=== PATIENT | male | born 1950 | race Caucasian/White ===

== ENCOUNTER 2019-04-09 23:19 | Inpatient (IN) | payer OTHER ==
[~2019-04-09] VITALS: Ht 182.9 cm; Wt 53.5 kg
[2019-04-10] MEDS ORDERED: ACETAMINOPHEN 325 MG TABLET. PO PRN (02:30)
[2019-04-10] MEDS ORDERED: TEMAZEPAM 7.5 MG CAPSULE PO PRN (02:30)
[2019-04-10] MEDS ORDERED: ONDANSETRON PF 4 MG/2 ML VIAL. IV PRN (02:30)
[2019-04-10 03:16] VITALS: BP 129/75
[2019-04-10 07:15] VITALS: BP 130/78
[2019-04-10] MEDS: ASPIRIN 325 MG TABLET PO SCH ×2 (08:00→10:35)
[2019-04-10 08:36] LABS: BASO % 1 % (0-3); EOS # 0.1 x10^3/uL (0.0-0.7); EOS % 2 % (0-3); HEMATOCRIT 45.4 % (39.0-53.0); HEMOGLOBIN 15.7 g/dL (13.0-17.5); LYMPH # 1.1 x10^3/uL (1.0-4.8); LYMPH % 21 % (24-48); MEAN CORPUSCULAR HEMOGLOBIN 34 pg (25-35); MEAN CORPUSCULAR HGB CONC 35 g/dL (31-37); MEAN CORPUSCULAR VOLUME 100 fL (79-100); MONO # 0.6 x10^3/uL (0.0-1.1); MONO % 11 % (0-9); NEUT # 3.5 x10^3/uL (1.8-7.7); NEUT % 66 % (31-73); PLATELET COUNT 147 x10^3/uL (140-400); RED BLOOD COUNT 4.56 x10^6/uL (4.30-5.70); RED CELL DISTRIBUTION WIDTH 14.1 % (11.5-14.5); WHITE BLOOD COUNT 5.3 x10^3/uL (4.0-11.0)
[2019-04-10 08:40] LABS: ALBUMIN 3.1 g/dL (3.4-5.0); ALBUMIN/GLOBULIN RATIO 0.9 (1.0-1.7); CALCIUM 8.7 mg/dL (8.5-10.1); CREATININE 0.9 mg/dL (0.7-1.3); GFR 83.4; POTASSIUM 3.6 mmol/L (3.5-5.1); TOTAL BILIRUBIN 0.9 mg/dL (0.2-1.0); TOTAL PROTEIN 6.5 g/dL (6.4-8.2)
--- NOTE | 2019-04-10 10:00 | NUR ---
SW consulted for ETOH abuse and SNU eval. Chart reviewed and pt lives at home with family. PT/OT pending. SW will await for PT/OT eval to assess skilled needs.
[2019-04-10 11:17] VITALS: BP 126/71
--- NOTE | 2019-04-10 13:35 | HP ---
ADMIT DATE: 04/10/2019 CHIEF COMPLAINT: Left-sided weakness. HISTORY OF PRESENT ILLNESS: The patient is a pleasant elderly male who lives with his sister or [id number]. Basically, he had left-sided weakness. I think he went to [facility] first. He has now been transferred here. He clears to have left-sided weakness especially on the leg. He clinically seems to have a stroke. I discussed the case with the nurse here at the floor. We are going to admit the patient and consult Neurology. PAST MEDICAL HISTORY: None. ALLERGIES: None. FAMILY HISTORY: Hypertension. SOCIAL HISTORY: Does not drink, smoke or take drugs. MEDICATIONS: Reviewed, please refer to the MRAD. REVIEW OF SYSTEMS: Unobtainable, the patient is too weak. PHYSICAL EXAMINATION: VITALS: Within normal limits and are stable. GENERAL: No apparent distress. Alert and oriented. HEENT: Head is normocephalic, atraumatic, pupils were equally round and reactive to light and accommodation. NECK: Supple, no JVD, no thyromegaly was noted. LUNGS: Clear to auscultation in all lung humphrey without rhonchi or wheezing. HEART: RRR, S1, S2 present. Peripheral pulses intact, no obvious murmurs were noted. ABDOMEN: Soft, nontender. Positive bowel sounds no organomegaly, normal bowel sounds. EXTREMITIES: He has extremely keratotic and infected toenails and hand nails. 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 PSYCHIATRIC: Normal affect, normal mood. Stable. SKIN: No ulcerations or rashes, good skin turgor, no jaundice. VASCULAR: Good capillary refill, neurovascular bundle appears to be intact. LABORATORY DATA: White count 5, hemoglobin 15, platelets 147. Electrolytes are normal. ASSESSMENT AND PLAN: Stroke symptoms. The patient has been admitted. We will consult Neurology, PT, OT and Speech Therapy, Wound Care, consult Podiatry for his toenails. DVT prophylaxis. Home meds, daily aspirin. Suspect he may need long-term care placement. FEDERICO SOLO DO DR: GEOVANNA/bimal JOB#: [id number] / [id number]
[2019-04-10 15:00] VITALS: BP 131/64
--- NOTE | 2019-04-10 15:14 | PDOC2 ---
NEUROLOGY CONSULT Date of Admission Date of Admission DATE: 04/10/19 TIME: 14:37 Reason for Consult Reason for Consult: IMPRESSION: Left side weakness. Metabolic encephalopathy. Smoking. Drinking. RECOMMENDATIONS/PLAN: Continue ASA 325 mg daily. Brain MRI w/o contrast. Further evaluation pending MRI findings. OT/PT. Patient education for substances abstinence. HISTORY OF THE PRESENT ILLNESS: This is a 68-year-old male patient who was initially seen in [facility] with complaints of left side UE and LE weakness and was then transferred here in [facility] for further evaluation and treatment. He stated he had left-sided weakness especially on the leg. PAST MEDICAL HISTORY: Patient was unable to provide information. FAMILY HISTORY: Hypertension. PAST SURGERY HISTORY: No major surgery recently. ALLERGY: Unknown MEDICATIONS: Refer to MAR SOCIAL HISTORY: Lives with his sister. He smokes 1 pack of cigarettes a day for 30 years. He drinks 3-4 beers a day for more than 10 years. REVIEW OF SYSTEMS: Constitutional: Weight loss. Head: No traumatic brain or head injury. Skin: No edema, or rash. Ear: No infection. Eyes: No vision loss or color blindness. Nose: No bleeding or purulent discharges. Hearing: No hearing decrease. Neck: No injury. Cardiac: No UT, arrhythmia,claudication. Pulmonary: No COPD. GI: No GI ulcer, GI bleeding. Urinary/genital: No dysuria, incontinence, urinary retention. Endocrinologic: No cousin face, craniofacial dysmorphism. Skeletomuscular: No muscular atrophy, deformity. Neurological: see HP. Psychiatric: Denies drug use/abuse. Otherwise, not [id number] review of systems. PHYSICAL EXAMINATION: General appearance is in subacute distress. HEENT: Normocephalic and nontraumatic. Eyes, nose, ears, and throat are unremarkable. Neck is supple. No lymphadenopathy. No crepitus. Cardiovascular: S1, S2. Pulmonary: Clear to auscultation bilaterally. Abdomen: Bowel sounds are positive. Extremities: No rash, lesions, or edema. No restriction of range of motion NEUROLOGICAL EXAMINATION: Awake. Not oriented to time, place and person. PERRL. EOMI. CN: no focal findings. Muscle tone: within normal. Muscle strength: 5 DTR: 2 Plantar reflex: Flexor response bilaterally Gait: not examined in bed. Sensory exam: no abnormal findings. No cerebellar signs elicited. F-T-N test fine. Current Medications Current Medications Current Medications Aspirin (Javid Aspirin) 325 mg DAILYWBKFT PO Last administered on 04/10/19at 10:38; Start 04/10/19 at 08:00 Acetaminophen (Tylenol) 650 mg PRN Q6HRS PRN PO MILD PAIN / TEMP; Start 04/10/19 at 02:30 Ondansetron HCl (Zofran) 4 mg PRN Q6HRS PRN IV NAUSEA/VOMITING; Start 04/10/19 at 02:30 Temazepam (Restoril) 7.5 mg PRN QHS PRN PO INSOMNIA; Start 04/10/19 at 02:30 Allergies Allergies: Allergies Coded Allergies Type Severity Reaction Last Updated Verified No Known Drug Allergies 04/10/19 No ROS Review of System The patient denies any associated fevers, chills, headache, ear pain, rhinorrhea, sore throat, stiff neck, productive cough, chest pain, shortness of breath, back or flank pain, abdominal pain, nausea, vomiting, diarrhea, constipation, dysuria, rash, numbness, weakness, tingling, incontinence, difficu lty ambulating, or diaphoresis. Physical Exam Physical Exam General: Well developed, well nourished, no acute distress, well appearing HEENT: Pupils equally round and reactive to light, EOMI, no discharge, normal conjunctiva Neck: Supple, no nuchal rigidity, no JVD, trachea midline, no tenderness Cardiac: RRR, no murmurs, no gallops, no rubs Chest/Lungs: CTAB, no wheeze, no rhonchi, no crackles Abdomen: soft, non-distended, no guarding, no peritoneal signs, non-tender Back: No tenderness Extremities: no edema, pulses intact, non-tender,capillary refill <3 sec bilateral upper and lower extremities, Neuro: Alert and oriented x 4, no focal deficits, normal speech Vitals Vitals: Vital Signs Date Time Temp Pulse Resp B/P (MAP) Pulse Ox O2 Delivery O2 Flow Rate FiO2 04/10/19 11:17 97.9 58 20 126/71 (89) 95 Room Air 97.9 Labs Labs Laboratory Tests Test 04/10/19 08:00 White Blood Count 5.3 x10^3/uL (4.0-11.0) Red Blood Count 4.56 x10^6/uL (4.30-5.70) Hemoglobin 15.7 g/dL (13.0-17.5) Hematocrit 45.4 % (39.0-53.0) Mean Corpuscular Volume 100 fL (79-100) Mean Corpuscular Hemoglobin 34 pg (25-35) Mean Corpuscular Hemoglobin Concent 35 g/dL (31-37) Red Cell Distribution Width 14.1 % (11.5-14.5) Platelet Count 147 x10^3/uL (140-400) Neutrophils (%) (Auto) 66 % (31-73) Lymphocytes (%) (Auto) 21 % (24-48) Monocytes (%) (Auto) 11 % (0-9) Eosinophils (%) (Auto) 2 % (0-3) Basophils (%) (Auto) 1 % (0-3) Neutrophils # (Auto) 3.5 x10^3/uL (1.8-7.7) Lymphocytes # (Auto) 1.1 x10^3/uL (1.0-4.8) Monocytes # (Auto) 0.6 x10^3/uL (0.0-1.1) Eosinophils # (Auto) 0.1 x10^3/uL (0.0-0.7) Basophils # (Auto) 0.0 x10^3/uL (0.0-0.2) Prothrombin Time 13.0 SEC (11.7-14.0) Prothromb Time International Ratio 1.0 (0.8-1.1) Sodium Level 136 mmol/L (136-145) Potassium Level 3.6 mmol/L (3.5-5.1) Chloride Level 99 mmol/L (98-107) Carbon Dioxide Level 29 mmol/L (21-32) Anion Gap 8 (6-14) Blood Urea Nitrogen 18 mg/dL (8-26) Creatinine 0.9 mg/dL (0.7-1.3) Estimated GFR (Cockcroft-Gault) 83.4 BUN/Creatinine Ratio 20 (6-20) Glucose Level 74 mg/dL (70-99) Calcium Level 8.7 mg/dL (8.5-10.1) Total Bilirubin 0.9 mg/dL (0.2-1.0) Aspartate Amino Transf (AST/SGOT) 67 U/L (15-37) Alanine Aminotransferase (ALT/SGPT) 71 U/L (16-63) Alkaline Phosphatase 56 U/L (46-116) Total Protein 6.5 g/dL (6.4-8.2) Albumin 3.1 g/dL (3.4-5.0) Albumin/Globulin Ratio 0.9 (1.0-1.7) Laboratory Tests Test 04/10/19 08:00 White Blood Count 5.3 x10^3/uL (4.0-11.0) Red Blood Count 4.56 x10^6/uL (4.30-5.70) Hemoglobin 15.7 g/dL (13.0-17.5) Hematocrit 45.4 % (39.0-53.0) Mean Corpuscular Volume 100 fL (79-100) Mean Corpuscular Hemoglobin 34 pg (25-35) Mean Corpuscular Hemoglobin Concent 35 g/dL (31-37) Red Cell Distribution Width 14.1 % (11.5-14.5) Platelet Count 147 x10^3/uL (140-400) Neutrophils (%) (Auto) 66 % (31-73) Lymphocytes (%) (Auto) 21 % (24-48) Monocytes (%) (Auto) 11 % (0-9) Eosinophils (%) (Auto) 2 % (0-3) Basophils (%) (Auto) 1 % (0-3) Neutrophils # (Auto) 3.5 x10^3/uL (1.8-7.7) Lymphocytes # (Auto) 1.1 x10^3/uL (1.0-4.8) Monocytes # (Auto) 0.6 x10^3/uL (0.0-1.1) Eosinophils # (Auto) 0.1 x10^3/uL (0.0-0.7) Basophils # (Auto) 0.0 x10^3/uL (0.0-0.2) Prothrombin Time 13.0 SEC (11.7-14.0) Prothromb Time International Ratio 1.0 (0.8-1.1) Sodium Level 136 mmol/L (136-145) Potassium Level 3.6 mmol/L (3.5-5.1) Chloride Level 99 mmol/L (98-107) Carbon Dioxide Level 29 mmol/L (21-32) Anion Gap 8 (6-14) Blood Urea Nitrogen 18 mg/dL (8-26) Creatinine 0.9 mg/dL (0.7-1.3) Estimated GFR (Cockcroft-Gault) 83.4 BUN/Creatinine Ratio 20 (6-20) Glucose Level 74 mg/dL (70-99) Calcium Level 8.7 mg/dL (8.5-10.1) Total Bilirubin 0.9 mg/dL (0.2-1.0) Aspartate Amino Transf (AST/SGOT) 67 U/L (15-37) Alanine Aminotransferase (ALT/SGPT) 71 U/L (16-63) Alkaline Phosphatase 56 U/L (46-116) Total Protein 6.5 g/dL (6.4-8.2) Albumin 3.1 g/dL (3.4-5.0) Albumin/Globulin Ratio 0.9 (1.0-1.7) DOV HILL MD Apr 10, 2019 15:14
--- NOTE | 2019-04-10 15:33 | RAD ---
BRAIN W/O CONTRAST History: Rule out CVA. Stroke symptoms. Technique: Multiplanar, multi sequential MR imaging was performed of the brain without contrast. Comparison: None Findings: Acute right paramedian frontal and precentral gyrus cortical infarct. Minimal gradient hypointensity within this region, may indicate petechial hemorrhage. Severe brain parenchymal volume loss. Left frontal encephalomalacia. Chronic right parietal infarct. Small chronic right pontine lacunar infarct. Small bilateral chronic cerebellar infarcts. Small bilateral thalamic infarcts. Additional foci of T2/FLAIR hyperintensity within the hemispheric white matter, most often due to moderate sequela chronic microvascular ischemia. Punctate gradient hypointensities within the left occipital lobe, may relate to prior microhemorrhage. Imaged orbits are unremarkable. Imaged paranasal sinuses and mastoid air cells are clear. Impression: 1. Acute right superior paramedian frontal and precentral gyrus cortical infarcts with possible petechial hemorrhage. 2. 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 3. Severe brain parenchymal volume loss. 4. Moderate sequela chronic microvascular ischemia. FOR INTERNAL CODING PURPOSES Critical result: Findings discussed with patient's nurse at 04/10/2019 3:26 PM. RESULT CODE: (C) Electronically signed by: Paulie Hernandez DO (04/10/2019 3:30 PM) [id number]
[2019-04-10 19:10] VITALS: BP 98/59
[2019-04-10] MEDS: ATORVASTATIN CALCIUM 10 MG TABLET. PO SCH (21:47)
[2019-04-10 23:15] VITALS: BP 114/70
[2019-04-11 03:16] VITALS: BP 112/67
[2019-04-11 05:15] LABS: CHOLESTEROL/HDL RATIO 1.7
[2019-04-11 07:40] VITALS: BP 131/63
[2019-04-11] MEDS: ASPIRIN 325 MG TABLET PO SCH (08:22)
--- NOTE | 2019-04-11 08:26 | RAD ---
EXAM: Carotid Doppler sonogram. HISTORY: Cerebral infarction. TECHNIQUE: Nye scale and color Doppler sonographic evaluation of the neck with spectral waveform analysis was performed and static images are submitted for review. FINDINGS: There is mild atherosclerotic plaque involving the carotid bifurcations. There is intimal thickening involving the common carotid arteries. The peak systolic velocity within the right common carotid artery is 163 cm/sec. The peak systolic velocity within the right internal carotid artery is 125 cm/sec and the end diastolic velocity within the right internal carotid artery is 22 cm/sec. The right ICA/CCA ratio is 0.87. The peak systolic velocity within the left common carotid artery is 152 cm/sec. The peak systolic velocity within the left internal carotid artery is 127 cm/sec and the end diastolic velocity within the left internal carotid artery is 30 cm/sec. The left ICA/CCA ratio is 0.84. There is normal antegrade flow within both vertebral arteries. IMPRESSION: 1. Upper limits of normal peak systolic velocity within the right internal carotid artery, suggesting near 50-69 percent stenosis. 2. Minimally elevated peak systolic velocity within the left internal carotid artery, suggesting 50-69 percent stenosis. PQRS Compliance Statement - Stenosis calculations for CT, MR and conventional angiography are based upon measurement of the distal ICA diameter in accordance with the NASCET methodology. Stenosis calculations for carotid ultrasound studies are derived from validated velocity criteria which are known to correlate with the NASCET methodology. Electronically signed by: Pallavi Calles MD (04/11/2019 8:23 AM) [id number]
--- NOTE | 2019-04-11 09:47 | PDOC ---
[employer] PROGRESS NOTE Chief Complaint Chief Complaint Stroke Symptoms - Left side weakness Metabolic encephalopathy Smoking Drinking History of Present Illness History of Present Illness 04/11/19 Pt seen and examined lying in bed with meal at bedside Chart Reviewed DW RN Vitals/I&O Vitals/I&O: Vital Signs Date Time Temp Pulse Resp B/P (MAP) Pulse Ox O2 Delivery O2 Flow Rate FiO2 04/11/19 07:40 98.0 50 18 131/63 (85) 98 Room Air 98.0 I & O 04/10/19 04/10/19 04/11/19 15:00 23:00 07:00 Intake Total 180 ml 50 ml Balance 180 ml 50 ml Physical Exam General: Alert, Cooperative, No acute distress Heart: Regular rate, Normal S1, Normal S2 Lungs: Clear Abdomen: Soft, No tenderness Extremities: No clubbing, No cyanosis, No edema, Other Skin: No rashes, No significant lesion, Other Review of Systems Review of Systems: No co changes in vision No co SOB Assessment and Plan Assessmemt and Plan Assessment Stroke Symptoms - Left side weakness Metabolic encephalopathy Smoking Drinking Plan Speech Therapy PT/OT DVT Prophylaxis Appreciate Neurology Input Daily Aspirin Continue Home Meds Skilled Nursing Care placement pending Comment Review of Relevant I have reviewed the following items jessica (where applicable) has been applied. Medications: Current Medications Medications (Trade) Dose Ordered Sig/Hayes Route PRN Reason Start Time Stop Time Status Last Admin Dose Admin Atorvastatin Calcium (Lipitor) 10 mg QHS PO 04/10/19 21:00 04/10/19 21:49 FEDERICO SOLO III DO Apr 11, 2019 09:46
--- NOTE | 2019-04-11 10:11 | CARD ---
MR#: [id number] Date of Study: 04/11/2019 Ordering Physician: DOV HILL, Referring Physician: DOV HILL, Tech: Marlene Otero RDCS APPROVED REPORT EXAM: Two-dimensional and M-mode echocardiogram with Doppler and color Doppler. Other Information Quality : Technically Limited Technically limited study due to thin, frail stature. INDICATION CVA/TIA Echo Enhancing Agent Agent/Amount Used: Agitated Saline 8mL 2D DIMENSIONS RVDd2.2 (2.9-3.5cm)Left Atrium(2D)3.1 (1.6-4.0cm) IVSd0.9 (0.7-1.1cm)Aortic Root(2D)2.3 (2.0-3.7cm) LVDd3.9 (3.9-5.9cm)LVOT Diameter2.2 (1.8-2.4cm) PWd0.9 (0.7-1.1cm)LVDs2.5 (2.5-4.0cm) FS (%) 37.7 %SV46.0 ml Aortic Valve AoV Peak Donald.92.7cm/Suhail Peak GR.3.4mmHg Mitral Valve MV E Fqzjufti58.6cm/sMV DECEL AILI324hm MV A Nljdqwjd19.3cm/sE/A Ratio0.8 TDI Medial E' P. V4.05cm/sE/Medial E'13.7 LEFT VENTRICLE The left ventricle is normal size. There is normal left ventricular wall thickness. The left ventricu lar systolic function is normal and the ejection fraction is within normal range. The Ejection Fracti on is 60-65%. There is normal LV segmental wall motion. Transmitral Doppler flow pattern is Grade I-a bnormal relaxation pattern. RIGHT VENTRICLE The right ventricle is normal size. The right ventricular systolic function is normal. ATRIA The left atrium size is normal. The right atrium size is normal. The interatrial septum is intact wit h no evidence for an atrial septal defect or patent foramen ovale as noted on 2-D or Doppler imaging. Injection of bubbles documented no interatrial shunt. AORTIC VALVE The aortic valve is calcified but opens well. Doppler and Color Flow revealed no significant aortic r egurgitation. There is no significant aortic valvular stenosis. MITRAL VALVE The mitral valve is calcified but opens well. There is no evidence of mitral valve prolapse. There is no mitral valve stenosis. Doppler and Color-flow revealed trace mitral regurgitation. TRICUSPID VALVE The tricuspid valve is normal in structure and function. Doppler and Color Flow revealed no tricuspid valve regurgitation noted. There is no tricuspid valve stenosis. PULMONIC VALVE The pulmonic valve is not well visualized. Doppler and Color Flow revealed no pulmonic valvular regur gitation. There is no pulmonic valvular stenosis. GREAT VESSELS The aortic root is normal in size. The ascending aorta is not well seen. The IVC is normal in size an d collapses >50% with inspiration. PERICARDIAL EFFUSION There is no evidence of significant pericardial effusion. Critical Notification Critical Value: No <Conclusion> The left ventricle is normal size. The left ventricular systolic function is normal and the ejection fraction is within normal range. The Ejection Fraction is 60-65%. The interatrial septum is intact with no evidence for an atrial septal defect or patent foramen ovale as noted on 2-D or Doppler imaging. Injection of bubbles documented no interatrial shunt. There is no significant aortic valvular stenosis. Doppler and Color Flow revealed no significant aortic regurgitation. Doppler and Color-flow revealed trace mitral regurgitation. Doppler and Color Flow revealed no tricuspid valve regurgitation noted. Signed by : Yonas Artis MD Electronically Approved : 04/11/2019 10:10:56
[2019-04-11 11:00] VITALS: BP 123/72
--- NOTE | 2019-04-11 12:05 | EEG ---
DATE OF SERVICE: 04/10/2019 EEG NUMBER [id number] OBJECTIVE: This is a 68-year-old male patient with history of persistent mental status changes. EEG was requested to evaluate cerebral activity and help rule out subclinical seizures. METHODS: Twenty electrodes were applied according to the international 10-20 electrode placement system. EKG monitoring, hyperventilation, intermittent photic stimulation, monopolar and bipolar montages are routinely utilized. The record was obtained on a digital system with video monitoring. FINDINGS: 1. Background: The patient was recorded in the awake and drowsy states. No actual sleep state was recorded. The overall background amplitude is 10-20 microvolts. A posterior dominant rhythm of 8 Hz is observed. 2. Abnormalities: No specific epileptiform discharge or electrographic seizure is seen. No focal or diffuse slowing. 3. Activation: Hyperventilation was performed with poor effort. Intermittent photic stimulation was performed with photic driving. IMPRESSION: This EEG is within the normal limits of the study for the awake and drowsy states. No focal, lateralizing, specific epileptiform discharge or electrographic seizure is seen. DOV HILL MD DR: RONNELL/bimal JOB#: [id number] / [id number] TY
[2019-04-11 15:50] VITALS: BP 123/72
--- NOTE | 2019-04-11 16:02 | NUR ---
SW following pt. PT/OT recommends SNU. Spoke with Ivet Ayers, , Ext: [phone] at [facility] and pt is not service connected but might qualify for [facility] when ready. SW met with pt and he was able to answer but appears to be confused. Pt also appears that he has not taking care of himself well at home. He reports he lives at home with his sister in law. Spoke with pt's son, Gonzalez, who reports all pt wants to do is drink beer and smoke cigarettes. Pt's son believes pt will need LTC Placement, SW discussed pt will need to agree with that plan but will need SNU due to stroke. Discussed current insurance benefits, difference between SNU VS LTC. SW will initiate [facility] referral tomorrow. Per RN, awaiting to get urine sample. CM also checking if pt has other insurance. SW left a medicaid trinh with RN to give to pt's son.
--- NOTE | 2019-04-11 16:07 | CONS ---
DATE OF CONSULTATION: PODIATRIC CONSULTATION REASON FOR CONSULTATION: Evaluate chronic onychomycosis of all 10 toenails. REVIEW OF RECORD: This is a 68-year-old gentleman, who was transferred from [facility] with left-sided weakness. He has been worked up for that and has had imaging studies done, which apparently confirms that. MEDICATIONS: Aspirin, Tylenol, Zofran, and Restoril. ALLERGIES: No known allergies. SOCIAL HISTORY: Does not drink, smoke, or take drugs. PHYSICAL EXAMINATION: DERMATOLOGIC: The patient has elongated mycotic nails of long-term severe duration with onychomycosis, onychogryphosis, onycholysis of all 10 toenails. Most of the toenails are alban's horn in presentation. No signs of break in the skin. No signs of abscess formation. Decreased turgor. Absence of hair growth. VASCULAR: Pedal pulses are diminished, +1/4 posterior tibial and dorsalis pedis. NEUROLOGIC: The patient appears to have hyperreactivity of his left lower extremity. Otherwise, he did not respond to sharp instrumentation abnormally. MUSCULOSKELETAL: No bunion or hammertoe deformities that are contributory to his problem at this time. ASSESSMENT: 1. Severe chronic onychomycosis, onychogryphosis, onycholysis of all 10 toenails. 2. Diminished vascularity, non-limb threatening. 3. Apparent history of left-sided weakness with stroke with some neurologic findings consistent with stroke, i.e., hyperreflexia. PLAN: Debridement of all mycotic nails was performed. Some hemorrhages occurred on the second toe, left foot. This was controlled with Monsel's solution as hemostasis. Band-Aid applied with some Silvadene cream. This is superficial in nature and will heal uneventfully most likely. Thank you for the opportunity of taking care of this patient. Did have some severe podiatric needs. MIHIR BEAVER DPM DR: YUDELKA/bimal JOB#: [id number] / [id number]
--- NOTE | 2019-04-11 18:12 | PDOC ---
PROGRESS NOTES Assessment Assessment Acute right frontal lobe infarct with possible petechial hemorrhage. Left side weakness, LE > UE. Metabolic encephalopathy. Smoking. Drinking. Cognitive impairment. Psychiatric problems. RECOMMENDATIONS/PLAN: Continue ASA 325 mg daily. Lipitor 10 mg HS. OT/PT. Rehab. Patient education for substances abstinence. HISTORY OF THE PRESENT ILLNESS: This is a 68-year-old male patient who was initially seen in [facility] with complaints of left side UE and LE weakness and was then transferred here in [facility] for further evaluation and treatment. He stated he had left-sided weakness especially on the leg. 04/11/19: left side weakness, LE > UE. PAST MEDICAL HISTORY: Patient was unable to provide information. FAMILY HISTORY: Hypertension. PAST SURGERY HISTORY: No major surgery recently. ALLERGY: Unknown MEDICATIONS: Refer to [facility] SOCIAL HISTORY: Lives with his sister. He smokes 1 pack of cigarettes a day for 30 years. He drinks 3-4 beers a day for more than 10 years. REVIEW OF SYSTEMS: Constitutional: Weight loss. Head: No traumatic brain or head injury. Skin: No edema, or rash. Ear: No infection. Eyes: No vision loss or color blindness. Nose: No bleeding or purulent discharges. Hearing: No hearing decrease. Neck: No injury. Cardiac: No MD, arrhythmia,claudication. Pulmonary: No COPD. GI: No GI ulcer, GI bleeding. Urinary/genital: No dysuria, incontinence, urinary retention. Endocrinologic: No cousin face, craniofacial dysmorphism. Skeletomuscular: No muscular atrophy, deformity. Neurological: see HP. Psychiatric: Denies drug use/abuse. Otherwise, not [id number] review of systems. PHYSICAL EXAMINATION: General appearance is in subacute distress. HEENT: Normocephalic and nontraumatic. Eyes, nose, ears, and throat are unremarkable. Neck is supple. No lymphadenopathy. No crepitus. Cardiovascular: S1, S2. Pulmonary: Clear to auscultation bilaterally. Abdomen: Bowel sounds are positive. Extremities: No rash, lesions, or edema. No restriction of range of motion NEUROLOGICAL EXAMINATION: Awake. Not oriented to time, but knew place and person. PERRL. EOMI. CN: no focal findings. Muscle tone: within normal. Muscle strength: 3-4 left UE, 1 left LE, 5 right side. DTR: 1-2 Plantar reflex: Flexor response bilaterally Gait: not able to walk. Sensory exam: no abnormal findings. No cerebellar signs elicited. F-T-N test fine. Objective Objective Vital Signs Date Time Temp Pulse Resp B/P (MAP) Pulse Ox O2 Delivery O2 Flow Rate FiO2 04/11/19 15:50 97.5 80 18 123/72 (89) 98 Room Air 97.5 Intake and Output 04/11/19 07:00 Intake Total 230 ml Balance 230 ml Intake Oral 230 ml # Voids 1 # Bowel Movements 1 Vitals Signs Vitals VS - Last 72 Hours, by Label Date Time Temp Pulse Resp B/P (MAP) Pulse Ox O2 Delivery O2 Flow Rate FiO2 04/11/19 15:50 97.5 80 18 123/72 (89) 98 Room Air 97.5 04/11/19 11:00 97.8 80 18 123/72 (89) 98 Room Air 97.8 04/11/19 07:40 98.0 50 18 131/63 (85) 98 Room Air 98.0 04/11/19 07:30 Room Air 04/11/19 03:16 97.7 52 16 112/67 (82) 96 Room Air 97.7 04/10/19 23:15 97.6 51 20 114/70 (85) 96 Room Air 97.6 04/10/19 20:04 Room Air 04/10/19 19:10 97.7 76 18 98/59 (72) 96 Room Air 97.7 04/10/19 15:00 98.3 50 18 131/64 (86) 96 Room Air 98.3 04/10/19 11:17 97.9 58 20 126/71 (89) 95 Room Air 97.9 04/10/19 07:15 98.4 54 20 130/78 (95) 96 Room Air 98.4 Medication Medications Current Medications Atorvastatin Calcium (Lipitor) 10 mg QHS PO Last administered on 04/10/19at 21:49; Start 04/10/19 at 21:00 Comment Review of Relevant I have reviewed the following items jessica (where applicable) has been applied. DOV HILL MD Apr 11, 2019 18:12
[2019-04-11 19:32] LABS: AMPHETAMINE/METHAMPHETAMINE NEG (NEG); BARBITURATES NEG (NEG); BENZODIAZEPINES NEG (NEG); CANNABINOIDS NEG (NEG); COCAINE NEG (NEG); METHADONE NEG (NEG); OPIATES NEG (NEG); PHENCYCLIDINE NEG (NEG)
[2019-04-11 19:41] VITALS: BP 90/59
[2019-04-11] MEDS: ATORVASTATIN CALCIUM 10 MG TABLET. PO SCH (20:39)
[2019-04-11 23:15] VITALS: BP 122/80
[2019-04-12 03:02] VITALS: BP 115/65
[2019-04-12 05:23] LABS: BASO # 0.1 x10^3/uL (0.0-0.2); BASO % 2 % (0-3); EOS # 0.2 x10^3/uL (0.0-0.7); EOS % 3 % (0-3); HEMATOCRIT 44.3 % (39.0-53.0); LYMPH # 1.4 x10^3/uL (1.0-4.8); LYMPH % 25 % (24-48); MEAN CORPUSCULAR HEMOGLOBIN 34 pg (25-35); MEAN CORPUSCULAR HGB CONC 34 g/dL (31-37); MEAN CORPUSCULAR VOLUME 101 fL (79-100); MONO # 0.6 x10^3/uL (0.0-1.1); MONO % 10 % (0-9); NEUT # 3.5 x10^3/uL (1.8-7.7); NEUT % 60 % (31-73); PLATELET COUNT 146 x10^3/uL (140-400); RED BLOOD COUNT 4.38 x10^6/uL (4.30-5.70); RED CELL DISTRIBUTION WIDTH 14.2 % (11.5-14.5); WHITE BLOOD COUNT 5.7 x10^3/uL (4.0-11.0)
[2019-04-12 05:41] LABS: CALCIUM 8.9 mg/dL (8.5-10.1); GFR 73.9
[2019-04-12 07:00] VITALS: BP 126/74
[2019-04-12] MEDS: ASPIRIN 325 MG TABLET PO SCH (07:51)
[2019-04-12 11:00] VITALS: BP 98/54
--- NOTE | 2019-04-12 11:05 | NUR ---
LIZETTE following pt. LIZETTE phoned and faxed referral to [facility], , ext:[phone], fax: [phone]. Pt acceptance and admission pending. Will continue to follow. Addendum: 04/12/19 at 1527 by AICHA BAUER SW following pt. Molly left a VM stating [facility] is smoke free facility and pt will need to agree with this policy. Spoke with pt and he is agreeable. Left a voice mail to Melany regarding this. Pt acceptance and admission pending.
--- NOTE | 2019-04-12 12:24 | PDOC ---
PROGRESS NOTES Assessment Assessment Acute right frontal lobe infarct with possible petechial hemorrhage. Left side weakness, LE > UE. Metabolic encephalopathy. Smoking. Drinking. Cognitive impairment. Psychiatric problems. RECOMMENDATIONS/PLAN: Continue ASA 325 mg daily. Continue Lipitor 10 mg HS. OT/PT. Rehab as needed. Patient education for substances abstinence. HISTORY OF THE PRESENT ILLNESS: This is a 68-year-old male patient who was initially seen in [facility] with complaints of left side UE and LE weakness and was then transferred here in [facility] for further evaluation and treatment. He stated he had left-sided weakness especially on the leg. 04/12/19: left side weakness significantly improved. PAST MEDICAL HISTORY: Patient was unable to provide information. FAMILY HISTORY: Hypertension. PAST SURGERY HISTORY: No major surgery recently. ALLERGY: Unknown MEDICATIONS: Refer to [facility] SOCIAL HISTORY: Lives with his sister. He smokes 1 pack of cigarettes a day for 30 years. He drinks 3-4 beers a day for more than 10 years. REVIEW OF SYSTEMS: Constitutional: Weight loss. Head: No traumatic brain or head injury. Skin: No edema, or rash. Ear: No infection. Eyes: No vision loss or color blindness. Nose: No bleeding or purulent discharges. Hearing: No hearing decrease. Neck: No injury. Cardiac: No MS, arrhythmia,claudication. Pulmonary: No COPD. GI: No GI ulcer, GI bleeding. Urinary/genital: No dysuria, incontinence, urinary retention. Endocrinologic: No cousin face, craniofacial dysmorphism. Skeletomuscular: No muscular atrophy, deformity. Neurological: see HP. Psychiatric: Denies drug use/abuse. Otherwise, not [id number] review of systems. PHYSICAL EXAMINATION: General appearance is in subacute distress. HEENT: Normocephalic and nontraumatic. Eyes, nose, ears, and throat are unremarkable. Neck is supple. No lymphadenopathy. No crepitus. Cardiovascular: S1, S2. Pulmonary: Clear to auscultation bilaterally. Abdomen: Bowel sounds are positive. Extremities: No rash, lesions, or edema. No restriction of range of motion NEUROLOGICAL EXAMINATION: Awake. Oriented to time, place and person. PERRL. EOMI. CN: no focal findings. Muscle tone: within normal. Muscle strength: 4+ left UE 4- left LE, 5 right side. DTR: 1-2 Plantar reflex: Flexor response bilaterally Gait: not examined in bed.. Sensory exam: no abnormal findings. No cerebellar signs elicited. F-T-N test fine. Objective Objective Vital Signs Date Time Temp Pulse Resp B/P (MAP) Pulse Ox O2 Delivery O2 Flow Rate FiO2 04/12/19 07:20 Room Air 04/12/19 07:00 97.7 58 12 126/74 (91) 98 97.7 Intake and Output 04/12/19 07:00 Intake Total 650 ml Output Total 126 ml Balance 524 ml Intake Oral 650 ml Output Urine Total 125 ml Urine/Stool Mix 1 ml # Voids 1 Vitals Signs Vitals VS - Last 72 Hours, by Label Date Time Temp Pulse Resp B/P (MAP) Pulse Ox O2 Delivery O2 Flow Rate FiO2 04/12/19 07:20 Room Air 04/12/19 07:00 97.7 58 12 126/74 (91) 98 Room Air 97.7 04/12/19 03:02 98.0 59 18 115/65 (82) 94 Room Air 98.0 04/11/19 23:15 97.5 57 20 122/80 (94) 97 Room Air 97.5 04/11/19 20:00 Room Air 04/11/19 19:41 97.5 75 18 90/59 (69) 97 Room Air 97.5 04/11/19 15:50 97.5 80 18 123/72 (89) 98 Room Air 97.5 04/11/19 11:00 97.8 80 18 123/72 (89) 98 Room Air 97.8 04/11/19 07:40 98.0 50 18 131/63 (85) 98 Room Air 98.0 04/11/19 07:30 Room Air Laboratory Laboratory Laboratory Tests Test 04/11/19 18:30 04/12/19 03:40 Urine Opiates Screen Neg (NEG) Urine Methadone Screen Neg (NEG) Urine Barbiturates Neg (NEG) Urine Phencyclidine Screen Neg (NEG) Urine Amphetamine/Methamphetamine Neg (NEG) Urine Benzodiazepines Screen Neg (NEG) Urine Cocaine Screen Neg (NEG) Urine Cannabinoids Screen Neg (NEG) Urine Ethyl Alcohol Neg (NEG) White Blood Count 5.7 x10^3/uL (4.0-11.0) Red Blood Count 4.38 x10^6/uL (4.30-5.70) Hemoglobin 15.0 g/dL (13.0-17.5) Hematocrit 44.3 % (39.0-53.0) Mean Corpuscular Volume 101 fL (79-100) Mean Corpuscular Hemoglobin 34 pg (25-35) Mean Corpuscular Hemoglobin Concent 34 g/dL (31-37) Red Cell Distribution Width 14.2 % (11.5-14.5) Platelet Count 146 x10^3/uL (140-400) Neutrophils (%) (Auto) 60 % (31-73) Lymphocytes (%) (Auto) 25 % (24-48) Monocytes (%) (Auto) 10 % (0-9) Eosinophils (%) (Auto) 3 % (0-3) Basophils (%) (Auto) 2 % (0-3) Neutrophils # (Auto) 3.5 x10^3/uL (1.8-7.7) Lymphocytes # (Auto) 1.4 x10^3/uL (1.0-4.8) Monocytes # (Auto) 0.6 x10^3/uL (0.0-1.1) Eosinophils # (Auto) 0.2 x10^3/uL (0.0-0.7) Basophils # (Auto) 0.1 x10^3/uL (0.0-0.2) Sodium Level 138 mmol/L (136-145) Potassium Level 4.0 mmol/L (3.5-5.1) Chloride Level 101 mmol/L (98-107) Carbon Dioxide Level 29 mmol/L (21-32) Anion Gap 8 (6-14) Blood Urea Nitrogen 21 mg/dL (8-26) Creatinine 1.0 mg/dL (0.7-1.3) Estimated GFR (Cockcroft-Gault) 73.9 Glucose Level 96 mg/dL (70-99) Calcium Level 8.9 mg/dL (8.5-10.1) Comment Review of Relevant I have reviewed the following items jessica (where applicable) has been applied. DOV HILL MD Apr 12, 2019 12:24
--- NOTE | 2019-04-12 12:45 | PDOC ---
[facility] [facility] PROGRESS NOTE Chief Complaint Chief Complaint Stroke Symptoms - Left side weakness Metabolic encephalopathy Smoking Drinking History of Present Illness History of Present Illness 04/12/19 Pt seen and examined lying in bed watching tv with meal ALEAH RN Chart Reviewed 04/11/19 Pt seen and examined lying in bed with meal at bedside Chart Reviewed ALEAH RN Vitals/I&O Vitals/I&O: Vital Signs Date Time Temp Pulse Resp B/P (MAP) Pulse Ox O2 Delivery O2 Flow Rate FiO2 04/12/19 11:00 97.3 70 16 98/54 (69) 95 Room Air 97.3 I & O 04/11/19 04/11/19 04/12/19 14:59 22:59 06:59 Intake Total 300 ml 350 ml 0 ml Output Total 100 ml 26 ml Balance 200 ml 324 ml 0 ml Physical Exam General: Alert, Cooperative, No acute distress Heart: Regular rate, Normal S1, Normal S2 Lungs: Clear Abdomen: Soft, No tenderness Extremities: No clubbing, No cyanosis, No edema, Other (Unable to move left lower extremity) Skin: No rashes, No significant lesion, Other Labs Labs: Laboratory Tests Test 04/11/19 18:30 04/12/19 03:40 Urine Opiates Screen Neg (NEG) Urine Methadone Screen Neg (NEG) Urine Barbiturates Neg (NEG) Urine Phencyclidine Screen Neg (NEG) Urine Amphetamine/Methamphetamine Neg (NEG) Urine Benzodiazepines Screen Neg (NEG) Urine Cocaine Screen Neg (NEG) Urine Cannabinoids Screen Neg (NEG) Urine Ethyl Alcohol Neg (NEG) White Blood Count 5.7 x10^3/uL (4.0-11.0) Red Blood Count 4.38 x10^6/uL (4.30-5.70) Hemoglobin 15.0 g/dL (13.0-17.5) Hematocrit 44.3 % (39.0-53.0) Mean Corpuscular Volume 101 fL (79-100) Mean Corpuscular Hemoglobin 34 pg (25-35) Mean Corpuscular Hemoglobin Concent 34 g/dL (31-37) Red Cell Distribution Width 14.2 % (11.5-14.5) Platelet Count 146 x10^3/uL (140-400) Neutrophils (%) (Auto) 60 % (31-73) Lymphocytes (%) (Auto) 25 % (24-48) Monocytes (%) (Auto) 10 % (0-9) Eosinophils (%) (Auto) 3 % (0-3) Basophils (%) (Auto) 2 % (0-3) Neutrophils # (Auto) 3.5 x10^3/uL (1.8-7.7) Lymphocytes # (Auto) 1.4 x10^3/uL (1.0-4.8) Monocytes # (Auto) 0.6 x10^3/uL (0.0-1.1) Eosinophils # (Auto) 0.2 x10^3/uL (0.0-0.7) Basophils # (Auto) 0.1 x10^3/uL (0.0-0.2) Sodium Level 138 mmol/L (136-145) Potassium Level 4.0 mmol/L (3.5-5.1) Chloride Level 101 mmol/L (98-107) Carbon Dioxide Level 29 mmol/L (21-32) Anion Gap 8 (6-14) Blood Urea Nitrogen 21 mg/dL (8-26) Creatinine 1.0 mg/dL (0.7-1.3) Estimated GFR (Cockcroft-Gault) 73.9 Glucose Level 96 mg/dL (70-99) Calcium Level 8.9 mg/dL (8.5-10.1) Review of Systems Review of Systems: No co SOB No co changes in vision Assessment and Plan Assessmemt and Plan Problems Medical Problems: (1) Cerebral infarct Status: Acute (2) Left-sided weakness Status: Acute (3) Metabolic encephalopathy Status: Acute Assessment Stroke Symptoms - Left side weakness Metabolic encephalopathy Smoking Drinking Plan D/C disposition pending; [facility] Prozac 20 mg PO QD for depression Speech Therapy PT/OT DVT Prophylaxis Daily Aspirin Continue Home Meds Appreciate Neurology Input Comment Review of Relevant I have reviewed the following items jessica (where applicable) has been applied. FEDERICO SOLO III, DO Apr 12, 2019 12:45
[2019-04-12] MEDS: FLUoxetine HCL 20 MG CAPSULE PO SCH (13:29)
[2019-04-12 15:00] VITALS: BP 94/53
[2019-04-12 19:05] VITALS: BP 109/60
[2019-04-12] MEDS: ATORVASTATIN CALCIUM 10 MG TABLET. PO SCH (20:14)
[2019-04-12 23:05] VITALS: BP 96/51
[2019-04-13 03:05] VITALS: BP 99/54
[2019-04-13 04:32] LABS: BASO # 0.1 x10^3/uL (0.0-0.2); BASO % 2 % (0-3); EOS # 0.2 x10^3/uL (0.0-0.7); EOS % 5 % (0-3); HEMATOCRIT 40.6 % (39.0-53.0); HEMOGLOBIN 13.9 g/dL (13.0-17.5); LYMPH # 1.4 x10^3/uL (1.0-4.8); LYMPH % 30 % (24-48); MEAN CORPUSCULAR HEMOGLOBIN 35 pg (25-35); MEAN CORPUSCULAR HGB CONC 34 g/dL (31-37); MEAN CORPUSCULAR VOLUME 101 fL (79-100); MONO # 0.6 x10^3/uL (0.0-1.1); MONO % 13 % (0-9); NEUT # 2.4 x10^3/uL (1.8-7.7); NEUT % 51 % (31-73); PLATELET COUNT 148 x10^3/uL (140-400); RED BLOOD COUNT 4.02 x10^6/uL (4.30-5.70); RED CELL DISTRIBUTION WIDTH 14.1 % (11.5-14.5); WHITE BLOOD COUNT 4.7 x10^3/uL (4.0-11.0)
[2019-04-13 04:48] LABS: CALCIUM 8.7 mg/dL (8.5-10.1); CREATININE 0.9 mg/dL (0.7-1.3); GFR 83.4
[2019-04-13 07:22] VITALS: BP 115/62
[2019-04-13] MEDS: FLUoxetine HCL 20 MG CAPSULE PO SCH (08:56)
[2019-04-13] MEDS: ASPIRIN 325 MG TABLET PO SCH (08:56)
[2019-04-13 11:51] VITALS: BP 98/61
--- NOTE | 2019-04-13 12:35 | PDOC ---
[facility] [facility] PROGRESS NOTE Chief Complaint Chief Complaint Stroke Symptoms - Left side weakness Metabolic encephalopathy Smoking Drinking History of Present Illness History of Present Illness 04/13/19 Pt seen and examined at bedside Pt in NAD but still exhibits LUE weakness and unable to move LLE 04/12/19 Pt seen and examined lying in bed watching tv with meal ALEAH RN Chart Reviewed 04/11/19 Pt seen and examined lying in bed with meal at bedside Chart Reviewed ALEAH RN Vitals/I&O Vitals/I&O: Vital Signs Date Time Temp Pulse Resp B/P (MAP) Pulse Ox O2 Delivery O2 Flow Rate FiO2 04/13/19 11:51 97.4 60 18 98/61 (73) 98 Room Air 97.4 I & O 04/12/19 04/12/19 04/13/19 14:59 22:59 06:59 Output Total 100 ml Balance -100 ml Physical Exam General: Alert, Cooperative, No acute distress Heart: Regular rate, Normal S1, Normal S2 Lungs: Clear Abdomen: Soft, No tenderness Extremities: No clubbing, No cyanosis, No edema, Other (Unable to move left lower extremity) Skin: No rashes, No significant lesion, Other Labs Labs: Laboratory Tests Test 04/13/19 03:30 White Blood Count 4.7 x10^3/uL (4.0-11.0) Red Blood Count 4.02 x10^6/uL (4.30-5.70) Hemoglobin 13.9 g/dL (13.0-17.5) Hematocrit 40.6 % (39.0-53.0) Mean Corpuscular Volume 101 fL (79-100) Mean Corpuscular Hemoglobin 35 pg (25-35) Mean Corpuscular Hemoglobin Concent 34 g/dL (31-37) Red Cell Distribution Width 14.1 % (11.5-14.5) Platelet Count 148 x10^3/uL (140-400) Neutrophils (%) (Auto) 51 % (31-73) Lymphocytes (%) (Auto) 30 % (24-48) Monocytes (%) (Auto) 13 % (0-9) Eosinophils (%) (Auto) 5 % (0-3) Basophils (%) (Auto) 2 % (0-3) Neutrophils # (Auto) 2.4 x10^3/uL (1.8-7.7) Lymphocytes # (Auto) 1.4 x10^3/uL (1.0-4.8) Monocytes # (Auto) 0.6 x10^3/uL (0.0-1.1) Eosinophils # (Auto) 0.2 x10^3/uL (0.0-0.7) Basophils # (Auto) 0.1 x10^3/uL (0.0-0.2) Sodium Level 140 mmol/L (136-145) Potassium Level 4.0 mmol/L (3.5-5.1) Chloride Level 104 mmol/L (98-107) Carbon Dioxide Level 31 mmol/L (21-32) Anion Gap 5 (6-14) Blood Urea Nitrogen 23 mg/dL (8-26) Creatinine 0.9 mg/dL (0.7-1.3) Estimated GFR (Cockcroft-Gault) 83.4 Glucose Level 94 mg/dL (70-99) Calcium Level 8.7 mg/dL (8.5-10.1) Review of Systems Review of Systems: Denies BARONE Denies vision change Assessment and Plan Assessmemt and Plan Problems Medical Problems: (1) Cerebral infarct Status: Acute (2) Left-sided weakness Status: Acute (3) Metabolic encephalopathy Status: Acute Assessment Stroke Symptoms - Left side weakness Metabolic encephalopathy Smoking Drinking Plan D/C disposition pending; [facility] Daily Aspirin Speech Therapy DVT Prophylaxis Continue Home Meds PT/OT Appreciate Neurology Input Comment Review of Relevant I have reviewed the following items jessica (where applicable) has been applied. Medications: Current Medications Medications (Trade) Dose Ordered Sig/Hayes Route PRN Reason Start Time Stop Time Status Last Admin Dose Admin Fluoxetine HCl (PROzac) 20 mg DAILY PO 04/12/19 13:00 04/13/19 08:56 FEDERICO SOLO III DO Apr 13, 2019 12:35
[2019-04-13 15:16] VITALS: BP 86/47
[2019-04-13 19:15] VITALS: BP 104/47
[2019-04-13] MEDS: ATORVASTATIN CALCIUM 10 MG TABLET. PO SCH (20:01)
[2019-04-13 23:29] VITALS: BP 120/63
[2019-04-14 03:41] VITALS: BP 126/70
[2019-04-14 07:42] VITALS: BP 125/68
[2019-04-14] MEDS: ASPIRIN 325 MG TABLET PO SCH (09:02)
[2019-04-14] MEDS: FLUoxetine HCL 20 MG CAPSULE PO SCH (09:02)
[2019-04-14 11:03] VITALS: BP 86/49
[2019-04-14 13:05] LABS: BASO # 0.1 x10^3/uL (0.0-0.2); BASO % 3 % (0-3); EOS # 0.2 x10^3/uL (0.0-0.7); EOS % 3 % (0-3); HEMATOCRIT 44.3 % (39.0-53.0); HEMOGLOBIN 14.9 g/dL (13.0-17.5); LYMPH # 1.3 x10^3/uL (1.0-4.8); LYMPH % 24 % (24-48); MEAN CORPUSCULAR HEMOGLOBIN 34 pg (25-35); MEAN CORPUSCULAR HGB CONC 34 g/dL (31-37); MEAN CORPUSCULAR VOLUME 101 fL (79-100); MONO # 0.6 x10^3/uL (0.0-1.1); MONO % 12 % (0-9); NEUT # 3.1 x10^3/uL (1.8-7.7); NEUT % 58 % (31-73); PLATELET COUNT 164 x10^3/uL (140-400); RED BLOOD COUNT 4.38 x10^6/uL (4.30-5.70); WHITE BLOOD COUNT 5.3 x10^3/uL (4.0-11.0)
[2019-04-14 13:07] LABS: CALCIUM 8.6 mg/dL (8.5-10.1); CREATININE 0.9 mg/dL (0.7-1.3); GFR 83.4; POTASSIUM 4.3 mmol/L (3.5-5.1)
--- NOTE | 2019-04-14 15:10 | PDOC ---
[facility] [facility] PROGRESS NOTE Chief Complaint Chief Complaint Stroke Symptoms - Left side weakness Metabolic encephalopathy Smoking Drinking History of Present Illness History of Present Illness 04/14/19 Pt seen and examined Pt was ambulating with a walker w/ PT assistance around the wade Chart Reviewed ALEAH RN 04/13/19 Pt seen and examined at bedside Pt in NAD but still exhibits LUE weakness and unable to move LLE 04/12/19 Pt seen and examined lying in bed watching tv with meal ALEAH RN Chart Reviewed 04/11/19 Pt seen and examined lying in bed with meal at bedside Chart Reviewed ALEAH RN Vitals/I&O Vitals/I&O: Vital Signs Date Time Temp Pulse Resp B/P (MAP) Pulse Ox O2 Delivery O2 Flow Rate FiO2 04/14/19 11:03 97.6 61 18 86/49 (61) 98 Room Air 97.6 I & O 04/13/19 04/13/19 04/14/19 14:59 22:59 06:59 Intake Total 800 ml 300 ml 100 ml Output Total 500 ml 180 ml 500 ml Balance 300 ml 120 ml -400 ml Physical Exam General: Alert, Cooperative, No acute distress Heart: Regular rate, Normal S1, Normal S2 Lungs: Clear Abdomen: Soft, No tenderness Extremities: No clubbing, No cyanosis, No edema, Other (Unable to move left lower extremity) Skin: No rashes, No significant lesion, Other Labs Labs: Laboratory Tests Test 04/14/19 12:15 White Blood Count 5.3 x10^3/uL (4.0-11.0) Red Blood Count 4.38 x10^6/uL (4.30-5.70) Hemoglobin 14.9 g/dL (13.0-17.5) Hematocrit 44.3 % (39.0-53.0) Mean Corpuscular Volume 101 fL (79-100) Mean Corpuscular Hemoglobin 34 pg (25-35) Mean Corpuscular Hemoglobin Concent 34 g/dL (31-37) Red Cell Distribution Width 14.0 % (11.5-14.5) Platelet Count 164 x10^3/uL (140-400) Neutrophils (%) (Auto) 58 % (31-73) Lymphocytes (%) (Auto) 24 % (24-48) Monocytes (%) (Auto) 12 % (0-9) Eosinophils (%) (Auto) 3 % (0-3) Basophils (%) (Auto) 3 % (0-3) Neutrophils # (Auto) 3.1 x10^3/uL (1.8-7.7) Lymphocytes # (Auto) 1.3 x10^3/uL (1.0-4.8) Monocytes # (Auto) 0.6 x10^3/uL (0.0-1.1) Eosinophils # (Auto) 0.2 x10^3/uL (0.0-0.7) Basophils # (Auto) 0.1 x10^3/uL (0.0-0.2) Sodium Level 136 mmol/L (136-145) Potassium Level 4.3 mmol/L (3.5-5.1) Chloride Level 102 mmol/L (98-107) Carbon Dioxide Level 30 mmol/L (21-32) Anion Gap 4 (6-14) Blood Urea Nitrogen 21 mg/dL (8-26) Creatinine 0.9 mg/dL (0.7-1.3) Estimated GFR (Cockcroft-Gault) 83.4 Glucose Level 113 mg/dL (70-99) Calcium Level 8.6 mg/dL (8.5-10.1) Review of Systems Review of Systems: co weakness no co chest pain Assessment and Plan Assessmemt and Plan Problems Medical Problems: (1) Cerebral infarct Status: Acute (2) Left-sided weakness Status: Acute (3) Metabolic encephalopathy Status: Acute Assessment: Stroke Symptoms - Left side weakness Metabolic encephalopathy Smoking Drinking Plan: PT/OT Speech therapy Daily Aspirin DVT Prophylaxis Continue Home Meds Appreciate Neurology Input D/C disposition pending; [facility] Comment Review of Relevant I have reviewed the following items jessica (where applicable) has been applied. FEDERICO SOLO III, DO Apr 14, 2019 15:09
[2019-04-14 15:45] VITALS: BP 84/40
[2019-04-14 19:00] VITALS: BP 104/59
[2019-04-14] MEDS: ATORVASTATIN CALCIUM 10 MG TABLET. PO SCH (20:55)
[2019-04-14 23:00] VITALS: BP 115/63
[2019-04-15 03:00] VITALS: BP 128/73
[2019-04-15 07:00] VITALS: BP 137/70
--- NOTE | 2019-04-15 07:48 | PDOC ---
PROGRESS NOTES Chief Complaint Chief Complaint ETOH use Acute right frontal lobe infarct with possible petechial hemorrhage. Left side weakness, LE > UE. Metabolic encephalopathy. Smoking. Cognitive impairment. Psychiatric problems. History of Present Illness History of Present Illness Mr Hauser is a 68yo M w/ PMHx who was admitted with left sided weakness. Carotid doppler reveals possible moderate right carotid stenosis and MRI confirms CVA - Acute right superior paramedian frontal and precentral gyrus cortical infarcts with possible petechial hemorrhage, Multifocal chronic supratentorial and infratentorial infarcts, Severe brain parenchymal volume loss, and Moderate sequela chronic microvascular ischemia. He is not speaking much today. No CP or SOB. Still with left arm weakness. 04/14/19 Pt seen and examined Pt was ambulating with a walker w/ PT assistance around the wade Chart Reviewed ALEAH RN 04/13/19 Pt seen and examined at bedside Pt in NAD but still exhibits LUE weakness and unable to move LLE 04/12/19 Pt seen and examined lying in bed watching tv with meal ALEAH RN Chart Reviewed 04/11/19 Pt seen and examined lying in bed with meal at bedside Chart Reviewed ALEAH RN Vitals Vitals Vital Signs Date Time Temp Pulse Resp B/P (MAP) Pulse Ox O2 Delivery O2 Flow Rate FiO2 04/15/19 03:00 97.9 56 18 128/73 (91) 97 Room Air 97.9 Physical Exam General: Alert, Cooperative, No acute distress Heart: Regular rate, Normal S1, Normal S2 Lungs: Clear Abdomen: Soft, No tenderness Extremities: No clubbing, No cyanosis, No edema, Other (Unable to move left lower extremity) Skin: No rashes, No significant lesion, Other Labs LABS Laboratory Tests Test 04/14/19 12:15 White Blood Count 5.3 x10^3/uL (4.0-11.0) Red Blood Count 4.38 x10^6/uL (4.30-5.70) Hemoglobin 14.9 g/dL (13.0-17.5) Hematocrit 44.3 % (39.0-53.0) Mean Corpuscular Volume 101 fL (79-100) Mean Corpuscular Hemoglobin 34 pg (25-35) Mean Corpuscular Hemoglobin Concent 34 g/dL (31-37) Red Cell Distribution Width 14.0 % (11.5-14.5) Platelet Count 164 x10^3/uL (140-400) Neutrophils (%) (Auto) 58 % (31-73) Lymphocytes (%) (Auto) 24 % (24-48) Monocytes (%) (Auto) 12 % (0-9) Eosinophils (%) (Auto) 3 % (0-3) Basophils (%) (Auto) 3 % (0-3) Neutrophils # (Auto) 3.1 x10^3/uL (1.8-7.7) Lymphocytes # (Auto) 1.3 x10^3/uL (1.0-4.8) Monocytes # (Auto) 0.6 x10^3/uL (0.0-1.1) Eosinophils # (Auto) 0.2 x10^3/uL (0.0-0.7) Basophils # (Auto) 0.1 x10^3/uL (0.0-0.2) Sodium Level 136 mmol/L (136-145) Potassium Level 4.3 mmol/L (3.5-5.1) Chloride Level 102 mmol/L (98-107) Carbon Dioxide Level 30 mmol/L (21-32) Anion Gap 4 (6-14) Blood Urea Nitrogen 21 mg/dL (8-26) Creatinine 0.9 mg/dL (0.7-1.3) Estimated GFR (Cockcroft-Gault) 83.4 Glucose Level 113 mg/dL (70-99) Calcium Level 8.6 mg/dL (8.5-10.1) Assessment and Plan Assessmemt and Plan Problems Medical Problems: (1) Cerebral infarct Status: Acute (2) Left-sided weakness Status: Acute (3) Metabolic encephalopathy Status: Acute Comment Review of Relevant I have reviewed the following items jessica (where applicable) has been applied. Labs Laboratory Tests Test 04/14/19 12:15 White Blood Count 5.3 x10^3/uL (4.0-11.0) Red Blood Count 4.38 x10^6/uL (4.30-5.70) Hemoglobin 14.9 g/dL (13.0-17.5) Hematocrit 44.3 % (39.0-53.0) Mean Corpuscular Volume 101 fL (79-100) Mean Corpuscular Hemoglobin 34 pg (25-35) Mean Corpuscular Hemoglobin Concent 34 g/dL (31-37) Red Cell Distribution Width 14.0 % (11.5-14.5) Platelet Count 164 x10^3/uL (140-400) Neutrophils (%) (Auto) 58 % (31-73) Lymphocytes (%) (Auto) 24 % (24-48) Monocytes (%) (Auto) 12 % (0-9) Eosinophils (%) (Auto) 3 % (0-3) Basophils (%) (Auto) 3 % (0-3) Neutrophils # (Auto) 3.1 x10^3/uL (1.8-7.7) Lymphocytes # (Auto) 1.3 x10^3/uL (1.0-4.8) Monocytes # (Auto) 0.6 x10^3/uL (0.0-1.1) Eosinophils # (Auto) 0.2 x10^3/uL (0.0-0.7) Basophils # (Auto) 0.1 x10^3/uL (0.0-0.2) Sodium Level 136 mmol/L (136-145) Potassium Level 4.3 mmol/L (3.5-5.1) Chloride Level 102 mmol/L (98-107) Carbon Dioxide Level 30 mmol/L (21-32) Anion Gap 4 (6-14) Blood Urea Nitrogen 21 mg/dL (8-26) Creatinine 0.9 mg/dL (0.7-1.3) Estimated GFR (Cockcroft-Gault) 83.4 Glucose Level 113 mg/dL (70-99) Calcium Level 8.6 mg/dL (8.5-10.1) Laboratory Tests Test 04/14/19 12:15 White Blood Count 5.3 x10^3/uL (4.0-11.0) Red Blood Count 4.38 x10^6/uL (4.30-5.70) Hemoglobin 14.9 g/dL (13.0-17.5) Hematocrit 44.3 % (39.0-53.0) Mean Corpuscular Volume 101 fL (79-100) Mean Corpuscular Hemoglobin 34 pg (25-35) Mean Corpuscular Hemoglobin Concent 34 g/dL (31-37) Red Cell Distribution Width 14.0 % (11.5-14.5) Platelet Count 164 x10^3/uL (140-400) Neutrophils (%) (Auto) 58 % (31-73) Lymphocytes (%) (Auto) 24 % (24-48) Monocytes (%) (Auto) 12 % (0-9) Eosinophils (%) (Auto) 3 % (0-3) Basophils (%) (Auto) 3 % (0-3) Neutrophils # (Auto) 3.1 x10^3/uL (1.8-7.7) Lymphocytes # (Auto) 1.3 x10^3/uL (1.0-4.8) Monocytes # (Auto) 0.6 x10^3/uL (0.0-1.1) Eosinophils # (Auto) 0.2 x10^3/uL (0.0-0.7) Basophils # (Auto) 0.1 x10^3/uL (0.0-0.2) Sodium Level 136 mmol/L (136-145) Potassium Level 4.3 mmol/L (3.5-5.1) Chloride Level 102 mmol/L (98-107) Carbon Dioxide Level 30 mmol/L (21-32) Anion Gap 4 (6-14) Blood Urea Nitrogen 21 mg/dL (8-26) Creatinine 0.9 mg/dL (0.7-1.3) Estimated GFR (Cockcroft-Gault) 83.4 Glucose Level 113 mg/dL (70-99) Calcium Level 8.6 mg/dL (8.5-10.1) Medications Current Medications Aspirin (Javid Aspirin) 325 mg DAILYWBKFT PO Last administered on 04/14/19at 09:02; Start 04/10/19 at 08:00 Acetaminophen (Tylenol) 650 mg PRN Q6HRS PRN PO MILD PAIN / TEMP; Start 04/10/19 at 02:30 Ondansetron HCl (Zofran) 4 mg PRN Q6HRS PRN IV NAUSEA/VOMITING; Start 04/10/19 at 02:30 Temazepam (Restoril) 7.5 mg PRN QHS PRN PO INSOMNIA Last administered on 04/11/19at 20:39; Start 04/10/19 at 02:30 Atorvastatin Calcium (Lipitor) 10 mg QHS PO Last administered on 04/14/19at 20:55; Start 04/10/19 at 21:00 Fluoxetine HCl (PROzac) 20 mg DAILY PO Last administered on 04/14/19at 09:02; Start 04/12/19 at 13:00 Vitals/I & O Vital Sign - Last 24 Hours 04/14/19 04/14/19 04/14/19 04/14/19 08:00 11:03 15:45 19:00 Temp 97.6 98.1 97.8 97.6 98.1 97.8 Pulse 61 54 59 Resp 18 18 20 B/P (MAP) 86/49 (61) 84/40 (55) 104/59 (74) Pulse Ox 98 96 97 O2 Delivery Room Air Room Air Room Air Room Air 04/14/19 04/14/19 04/15/19 20:10 23:00 03:00 Temp 97.7 97.9 97.7 97.9 Pulse 50 56 Resp 18 18 B/P (MAP) 115/63 (80) 128/73 (91) Pulse Ox 97 97 O2 Delivery Room Air Room Air Room Air Intake and Output 04/14/19 04/14/19 04/15/19 14:59 22:59 06:59 Intake Total 957 ml 300 ml 500 ml Output Total 200 ml 200 ml 760 ml Balance 757 ml 100 ml -260 ml Nutrition Consultation Dietary Evaluation: Recommendations by RD: Increase Calorie Intake, Protein supplementation Comments: ensure bid Expected Outcomes/Goals: to meet > 75% est nutr needs Malnutrition Findings: Body Fat Depletion (Non Severe: Mild Depletion Weight Status: Underweight JUSTINA THOMAS MD Apr 15, 2019 07:48
[2019-04-15] MEDS: FLUoxetine HCL 20 MG CAPSULE PO SCH (09:33)
[2019-04-15] MEDS: ASPIRIN 325 MG TABLET PO SCH (09:33)
[2019-04-15 09:38] LABS: CALCIUM 8.8 mg/dL (8.5-10.1); CREATININE 0.9 mg/dL (0.7-1.3); GFR 83.4; POTASSIUM 4.1 mmol/L (3.5-5.1)
[2019-04-15 10:11] LABS: BASO # 0.1 x10^3/uL (0.0-0.2); BASO % 3 % (0-3); EOS # 0.1 x10^3/uL (0.0-0.7); EOS % 3 % (0-3); HEMATOCRIT 44.2 % (39.0-53.0); HEMOGLOBIN 15.1 g/dL (13.0-17.5); LYMPH # 1.1 x10^3/uL (1.0-4.8); LYMPH % 25 % (24-48); MEAN CORPUSCULAR HEMOGLOBIN 34 pg (25-35); MEAN CORPUSCULAR HGB CONC 34 g/dL (31-37); MEAN CORPUSCULAR VOLUME 100 fL (79-100); MONO # 0.5 x10^3/uL (0.0-1.1); MONO % 10 % (0-9); NEUT # 2.7 x10^3/uL (1.8-7.7); NEUT % 59 % (31-73); PLATELET COUNT 170 x10^3/uL (140-400); RED BLOOD COUNT 4.41 x10^6/uL (4.30-5.70); RED CELL DISTRIBUTION WIDTH 13.9 % (11.5-14.5); WHITE BLOOD COUNT 4.6 x10^3/uL (4.0-11.0)
[2019-04-15 10:55] VITALS: BP 117/62
[2019-04-15 15:00] VITALS: BP 120/68
[2019-04-15 19:00] VITALS: BP 90/48
[2019-04-15] MEDS: ATORVASTATIN CALCIUM 10 MG TABLET. PO SCH (20:49)
[2019-04-15 23:00] VITALS: BP 111/53
[2019-04-16 03:00] VITALS: BP 93/53
[2019-04-16 07:00] VITALS: BP 124/66
--- NOTE | 2019-04-16 08:51 | NUR ---
SW following pt. Spoke with Melany at [facility] [place] and they still have not made a determination and need updates from the weekend. Updates faxed and Pt acceptance/admission pending. Will continue to follow.
[2019-04-16] MEDS: FLUoxetine HCL 20 MG CAPSULE PO SCH (08:55)
[2019-04-16] MEDS: ASPIRIN 325 MG TABLET PO SCH (08:55)
[2019-04-16 08:57] LABS: BASO # 0.1 x10^3/uL (0.0-0.2); BASO % 3 % (0-3); EOS # 0.2 x10^3/uL (0.0-0.7); EOS % 4 % (0-3); HEMATOCRIT 42.4 % (39.0-53.0); HEMOGLOBIN 14.2 g/dL (13.0-17.5); LYMPH # 1.3 x10^3/uL (1.0-4.8); LYMPH % 28 % (24-48); MEAN CORPUSCULAR HEMOGLOBIN 34 pg (25-35); MEAN CORPUSCULAR HGB CONC 34 g/dL (31-37); MEAN CORPUSCULAR VOLUME 102 fL (79-100); MONO # 0.7 x10^3/uL (0.0-1.1); MONO % 14 % (0-9); NEUT # 2.5 x10^3/uL (1.8-7.7); NEUT % 51 % (31-73); PLATELET COUNT 169 x10^3/uL (140-400); RED BLOOD COUNT 4.15 x10^6/uL (4.30-5.70); RED CELL DISTRIBUTION WIDTH 14.2 % (11.5-14.5); WHITE BLOOD COUNT 4.8 x10^3/uL (4.0-11.0)
[2019-04-16 09:05] LABS: CALCIUM 8.8 mg/dL (8.5-10.1); CREATININE 0.8 mg/dL (0.7-1.3); GFR 95.6; POTASSIUM 4.3 mmol/L (3.5-5.1)
[2019-04-16 11:00] VITALS: BP 96/53
--- NOTE | 2019-04-16 13:36 | NUR ---
LIZETTE following pt. Pt has been accepted at the [facility] and will be picked up tomorrow at 0900 by [facility] arranged w/c van transport. Physician and RN notified regarding orders and report. , ext: [phone]. Spoke with pt and he is agreeable with plans. SW left a message to pt's son, Jay regarding plan.
--- NOTE | 2019-04-16 14:41 | PDOC ---
PROGRESS NOTES Chief Complaint Chief Complaint ETOH use Acute right frontal lobe infarct with possible petechial hemorrhage. Left side weakness, LE > UE. Metabolic encephalopathy. Smoking. Cognitive impairment. Psychiatric problems. History of Present Illness History of Present Illness Mr Hauser is a 68yo M w/ PMHx who was admitted with left sided weakness. Carotid doppler reveals possible moderate right carotid stenosis and MRI confirms CVA - Acute right superior paramedian frontal and precentral gyrus cortical infarcts with possible petechial hemorrhage, Multifocal chronic supratentorial and infratentorial infarcts, Severe brain parenchymal volume loss, and moderate sequela chronic microvascular ischemia. He is speaking more today. No CP or SOB. Still with left arm weakness, but is able to make his bed today. 04/14/19 Pt seen and examined Pt was ambulating with a walker w/ PT assistance around the wade Chart Reviewed ALEAH RN 04/13/19 Pt seen and examined at bedside Pt in NAD but still exhibits LUE weakness and unable to move LLE 04/12/19 Pt seen and examined lying in bed watching tv with meal DW RN Chart Reviewed 04/11/19 Pt seen and examined lying in bed with meal at bedside Chart Reviewed ALEAH RN Vitals Vitals Vital Signs Date Time Temp Pulse Resp B/P (MAP) Pulse Ox O2 Delivery O2 Flow Rate FiO2 04/16/19 11:00 97.7 60 17 96/53 (67) 99 Room Air 97.7 Physical Exam General: Alert, Cooperative, No acute distress Heart: Regular rate, Normal S1, Normal S2 Lungs: Clear Abdomen: Soft, No tenderness Extremities: No clubbing, No cyanosis, No edema, Other (Unable to move left lower extremity) Skin: No rashes, No significant lesion, Other Labs LABS Laboratory Tests Test 04/16/19 07:15 White Blood Count 4.8 x10^3/uL (4.0-11.0) Red Blood Count 4.15 x10^6/uL (4.30-5.70) Hemoglobin 14.2 g/dL (13.0-17.5) Hematocrit 42.4 % (39.0-53.0) Mean Corpuscular Volume 102 fL (79-100) Mean Corpuscular Hemoglobin 34 pg (25-35) Mean Corpuscular Hemoglobin Concent 34 g/dL (31-37) Red Cell Distribution Width 14.2 % (11.5-14.5) Platelet Count 169 x10^3/uL (140-400) Neutrophils (%) (Auto) 51 % (31-73) Lymphocytes (%) (Auto) 28 % (24-48) Monocytes (%) (Auto) 14 % (0-9) Eosinophils (%) (Auto) 4 % (0-3) Basophils (%) (Auto) 3 % (0-3) Neutrophils # (Auto) 2.5 x10^3/uL (1.8-7.7) Lymphocytes # (Auto) 1.3 x10^3/uL (1.0-4.8) Monocytes # (Auto) 0.7 x10^3/uL (0.0-1.1) Eosinophils # (Auto) 0.2 x10^3/uL (0.0-0.7) Basophils # (Auto) 0.1 x10^3/uL (0.0-0.2) Sodium Level 137 mmol/L (136-145) Potassium Level 4.3 mmol/L (3.5-5.1) Chloride Level 102 mmol/L (98-107) Carbon Dioxide Level 32 mmol/L (21-32) Anion Gap 3 (6-14) Blood Urea Nitrogen 17 mg/dL (8-26) Creatinine 0.8 mg/dL (0.7-1.3) Estimated GFR (Cockcroft-Gault) 95.6 Glucose Level 81 mg/dL (70-99) Calcium Level 8.8 mg/dL (8.5-10.1) Assessment and Plan Assessmemt and Plan Problems Medical Problems: (1) Cerebral infarct Status: Acute (2) Left-sided weakness Status: Acute (3) Metabolic encephalopathy Status: Acute Comment Review of Relevant I have reviewed the following items jessica (where applicable) has been applied. Labs Laboratory Tests Test 04/15/19 08:50 04/16/19 07:15 White Blood Count 4.6 x10^3/uL (4.0-11.0) 4.8 x10^3/uL (4.0-11.0) Red Blood Count 4.41 x10^6/uL (4.30-5.70) 4.15 x10^6/uL (4.30-5.70) Hemoglobin 15.1 g/dL (13.0-17.5) 14.2 g/dL (13.0-17.5) Hematocrit 44.2 % (39.0-53.0) 42.4 % (39.0-53.0) Mean Corpuscular Volume 100 fL (79-100) 102 fL (79-100) Mean Corpuscular Hemoglobin 34 pg (25-35) 34 pg (25-35) Mean Corpuscular Hemoglobin Concent 34 g/dL (31-37) 34 g/dL (31-37) Red Cell Distribution Width 13.9 % (11.5-14.5) 14.2 % (11.5-14.5) Platelet Count 170 x10^3/uL (140-400) 169 x10^3/uL (140-400) Neutrophils (%) (Auto) 59 % (31-73) 51 % (31-73) Lymphocytes (%) (Auto) 25 % (24-48) 28 % (24-48) Monocytes (%) (Auto) 10 % (0-9) 14 % (0-9) Eosinophils (%) (Auto) 3 % (0-3) 4 % (0-3) Basophils (%) (Auto) 3 % (0-3) 3 % (0-3) Neutrophils # (Auto) 2.7 x10^3/uL (1.8-7.7) 2.5 x10^3/uL (1.8-7.7) Lymphocytes # (Auto) 1.1 x10^3/uL (1.0-4.8) 1.3 x10^3/uL (1.0-4.8) Monocytes # (Auto) 0.5 x10^3/uL (0.0-1.1) 0.7 x10^3/uL (0.0-1.1) Eosinophils # (Auto) 0.1 x10^3/uL (0.0-0.7) 0.2 x10^3/uL (0.0-0.7) Basophils # (Auto) 0.1 x10^3/uL (0.0-0.2) 0.1 x10^3/uL (0.0-0.2) Sodium Level 136 mmol/L (136-145) 137 mmol/L (136-145) Potassium Level 4.1 mmol/L (3.5-5.1) 4.3 mmol/L (3.5-5.1) Chloride Level 100 mmol/L (98-107) 102 mmol/L (98-107) Carbon Dioxide Level 34 mmol/L (21-32) 32 mmol/L (21-32) Anion Gap 2 (6-14) 3 (6-14) Blood Urea Nitrogen 20 mg/dL (8-26) 17 mg/dL (8-26) Creatinine 0.9 mg/dL (0.7-1.3) 0.8 mg/dL (0.7-1.3) Estimated GFR (Cockcroft-Gault) 83.4 95.6 Glucose Level 112 mg/dL (70-99) 81 mg/dL (70-99) Calcium Level 8.8 mg/dL (8.5-10.1) 8.8 mg/dL (8.5-10.1) Laboratory Tests Test 04/16/19 07:15 White Blood Count 4.8 x10^3/uL (4.0-11.0) Red Blood Count 4.15 x10^6/uL (4.30-5.70) Hemoglobin 14.2 g/dL (13.0-17.5) Hematocrit 42.4 % (39.0-53.0) Mean Corpuscular Volume 102 fL (79-100) Mean Corpuscular Hemoglobin 34 pg (25-35) Mean Corpuscular Hemoglobin Concent 34 g/dL (31-37) Red Cell Distribution Width 14.2 % (11.5-14.5) Platelet Count 169 x10^3/uL (140-400) Neutrophils (%) (Auto) 51 % (31-73) Lymphocytes (%) (Auto) 28 % (24-48) Monocytes (%) (Auto) 14 % (0-9) Eosinophils (%) (Auto) 4 % (0-3) Basophils (%) (Auto) 3 % (0-3) Neutrophils # (Auto) 2.5 x10^3/uL (1.8-7.7) Lymphocytes # (Auto) 1.3 x10^3/uL (1.0-4.8) Monocytes # (Auto) 0.7 x10^3/uL (0.0-1.1) Eosinophils # (Auto) 0.2 x10^3/uL (0.0-0.7) Basophils # (Auto) 0.1 x10^3/uL (0.0-0.2) Sodium Level 137 mmol/L (136-145) Potassium Level 4.3 mmol/L (3.5-5.1) Chloride Level 102 mmol/L (98-107) Carbon Dioxide Level 32 mmol/L (21-32) Anion Gap 3 (6-14) Blood Urea Nitrogen 17 mg/dL (8-26) Creatinine 0.8 mg/dL (0.7-1.3) Estimated GFR (Cockcroft-Gault) 95.6 Glucose Level 81 mg/dL (70-99) Calcium Level 8.8 mg/dL (8.5-10.1) Medications Current Medications Aspirin (Javid Aspirin) 325 mg DAILYWBKFT PO Last administered on 04/16/19 08:56; Start 04/10/19 at 08:00 Acetaminophen (Tylenol) 650 mg PRN Q6HRS PRN PO MILD PAIN / TEMP; Start 04/10/19 at 02:30 Ondansetron HCl (Zofran) 4 mg PRN Q6HRS PRN IV NAUSEA/VOMITING; Start 04/10/19 at 02:30 Temazepam (Restoril) 7.5 mg PRN QHS PRN PO INSOMNIA Last administered on 04/11/19at 20:39; Start 04/10/19 at 02:30 Atorvastatin Calcium (Lipitor) 10 mg QHS PO Last administered on 04/15/19 20:49; Start 04/10/19 at 21:00 Fluoxetine HCl (PROzac) 20 mg DAILY PO Last administered on 04/16/19 08:56; Start 04/12/19 at 13:00 Vitals/I & O Vital Sign - Last 24 Hours 04/15/19 04/15/19 04/15/19 04/15/19 15:00 19:00 20:00 23:00 Temp 97.8 97.9 97.9 97.8 97.9 97.9 Pulse 62 59 60 Resp 18 15 18 B/P (MAP) 120/68 (85) 90/48 (62) 111/53 (72) Pulse Ox 99 95 100 O2 Delivery Room Air Room Air Room Air Room Air 04/16/19 04/16/19 04/16/19 03:00 07:00 11:00 Temp 98.2 97.1 97.7 98.2 97.1 97.7 Pulse 57 58 60 Resp 18 17 17 B/P (MAP) 93/53 (66) 124/66 (85) 96/53 (67) Pulse Ox 98 100 99 O2 Delivery Room Air Room Air Room Air Intake and Output 04/15/19 04/15/19 04/16/19 15:00 23:00 07:00 Intake Total 600 ml 300 ml Output Total 600 ml Balance 0 ml 300 ml Nutrition Consultation Dietary Evaluation: Recommendations by RD: Increase Calorie Intake, Protein supplementation Comments: REC continue with nutrition care order Expected Outcomes/Goals: to meet > 75% est nutr needs Malnutrition Findings: Body Fat Depletion (Non Severe: Mild Depletion Weight Status: Underweight JUSTINA THOMAS MD Apr 16, 2019 14:41
[2019-04-16 15:00] VITALS: BP 92/50
--- NOTE | 2019-04-16 17:50 | PDOC ---
PROGRESS NOTES Assessment Assessment Acute right frontal lobe infarct with possible petechial hemorrhage. Left side weakness, LE > UE. Metabolic encephalopathy. Smoking. Drinking. Cognitive impairment. Psychiatric problems. RECOMMENDATIONS/PLAN: Continue ASA 325 mg daily. Continue Lipitor 10 mg HS. OT/PT. Rehab as needed. Patient education for substances abstinence. 04/16/19: left side weakness significantly improved. PAST MEDICAL HISTORY: Patient was unable to provide information. FAMILY HISTORY: Hypertension. PAST SURGERY HISTORY: No major surgery recently. ALLERGY: Unknown MEDICATIONS: Refer to MAR SOCIAL HISTORY: Lives with his sister. He smokes 1 pack of cigarettes a day for 30 years. He drinks 3-4 beers a day for more than 10 years. REVIEW OF SYSTEMS: Constitutional: Weight loss. Head: No traumatic brain or head injury. Skin: No edema, or rash. Ear: No infection. Eyes: No vision loss or color blindness. Nose: No bleeding or purulent discharges. Hearing: No hearing decrease. Neck: No injury. Cardiac: No IN, arrhythmia,claudication. Pulmonary: No COPD. GI: No GI ulcer, GI bleeding. Urinary/genital: No dysuria, incontinence, urinary retention. Endocrinologic: No cousin face, craniofacial dysmorphism. Skeletomuscular: No muscular atrophy, deformity. Neurological: see HP. Psychiatric: Denies drug use/abuse. Otherwise, not [id number] review of systems. PHYSICAL EXAMINATION: General appearance is in subacute distress. HEENT: Normocephalic and nontraumatic. Eyes, nose, ears, and throat are unremarkable. Neck is supple. No lymphadenopathy. No crepitus. Cardiovascular: S1, S2. Pulmonary: Clear to auscultation bilaterally. Abdomen: Bowel sounds are positive. Extremities: No rash, lesions, or edema. No restriction of range of motion NEUROLOGICAL EXAMINATION: Awake. Oriented to time, place and person. PERRL. EOMI. CN: no focal findings. Muscle tone: within normal. Muscle strength: 4+ left side, 5 right side. DTR: 2 UE, 1-2 at knee. Plantar reflex: Flexor response bilaterally Gait: not examined in chair. Sensory exam: no abnormal findings. No cerebellar signs elicited. F-T-N test fine. Objective Objective Vital Signs Date Time Temp Pulse Resp B/P (MAP) Pulse Ox O2 Delivery O2 Flow Rate FiO2 04/16/19 15:00 97.5 59 17 92/50 (64) 97 Room Air 97.5 Intake and Output 04/16/19 06:59 Intake Total 900 ml Output Total 600 ml Balance 300 ml Intake Oral 900 ml Output Urine Total 600 ml # Voids 4 Vitals Signs Vitals VS - Last 72 Hours, by Label Date Time Temp Pulse Resp B/P (MAP) Pulse Ox O2 Delivery O2 Flow Rate FiO2 04/16/19 15:00 97.5 59 17 92/50 (64) 97 Room Air 97.5 04/16/19 11:00 97.7 60 17 96/53 (67) 99 Room Air 97.7 04/16/19 07:00 97.1 58 17 124/66 (85) 100 Room Air 97.1 04/16/19 03:00 98.2 57 18 93/53 (66) 98 Room Air 98.2 04/15/19 23:00 97.9 60 18 111/53 (72) 100 Room Air 97.9 04/15/19 20:00 Room Air 04/15/19 19:00 97.9 59 15 90/48 (62) 95 Room Air 97.9 04/15/19 15:00 97.8 62 18 120/68 (85) 99 Room Air 97.8 04/15/19 10:55 97.7 61 18 117/62 (80) 99 Room Air 97.7 04/15/19 07:00 97.5 59 18 137/70 (92) 100 Room Air 97.5 Laboratory Laboratory Laboratory Tests Test 04/16/19 07:15 White Blood Count 4.8 x10^3/uL (4.0-11.0) Red Blood Count 4.15 x10^6/uL (4.30-5.70) Hemoglobin 14.2 g/dL (13.0-17.5) Hematocrit 42.4 % (39.0-53.0) Mean Corpuscular Volume 102 fL (79-100) Mean Corpuscular Hemoglobin 34 pg (25-35) Mean Corpuscular Hemoglobin Concent 34 g/dL (31-37) Red Cell Distribution Width 14.2 % (11.5-14.5) Platelet Count 169 x10^3/uL (140-400) Neutrophils (%) (Auto) 51 % (31-73) Lymphocytes (%) (Auto) 28 % (24-48) Monocytes (%) (Auto) 14 % (0-9) Eosinophils (%) (Auto) 4 % (0-3) Basophils (%) (Auto) 3 % (0-3) Neutrophils # (Auto) 2.5 x10^3/uL (1.8-7.7) Lymphocytes # (Auto) 1.3 x10^3/uL (1.0-4.8) Monocytes # (Auto) 0.7 x10^3/uL (0.0-1.1) Eosinophils # (Auto) 0.2 x10^3/uL (0.0-0.7) Basophils # (Auto) 0.1 x10^3/uL (0.0-0.2) Sodium Level 137 mmol/L (136-145) Potassium Level 4.3 mmol/L (3.5-5.1) Chloride Level 102 mmol/L (98-107) Carbon Dioxide Level 32 mmol/L (21-32) Anion Gap 3 (6-14) Blood Urea Nitrogen 17 mg/dL (8-26) Creatinine 0.8 mg/dL (0.7-1.3) Estimated GFR (Cockcroft-Gault) 95.6 Glucose Level 81 mg/dL (70-99) Calcium Level 8.8 mg/dL (8.5-10.1) Comment Review of Relevant I have reviewed the following items jessica (where applicable) has been applied. DOV HILL MD Apr 16, 2019 17:50
[2019-04-16 19:00] VITALS: BP 90/42
[2019-04-16] MEDS: ATORVASTATIN CALCIUM 10 MG TABLET. PO SCH (20:42)
[2019-04-16 23:00] VITALS: BP 105/43
[2019-04-17 03:00] VITALS: BP 115/60
[2019-04-17 07:00] VITALS: BP 133/68
[2019-04-17] MEDS: ASPIRIN 325 MG TABLET PO SCH (08:00)
[2019-04-17] MEDS ORDERED: ACET325T9 PO (09:00)
[2019-04-17] MEDS ORDERED: TEMA7.5C2 PO (09:00)
[2019-04-17] MEDS ORDERED: ATOR10TA60 PO (09:00)
[2019-04-17] MEDS: FLUoxetine HCL 20 MG CAPSULE PO SCH (09:00)
[2019-04-17] MEDS ORDERED: ONDA4TAB7 PO (09:00)
[2019-04-17] MEDS ORDERED: ASPI325T8 PO (09:00)
[2019-04-17] MEDS ORDERED: FLUO20CA8 PO (09:00)
--- NOTE | 2019-04-17 09:01 | SNU/HH DC ---
DISCHARGE ORDERS DISCHARGE INFORMATION: DISCHARGE DATE: Apr 17, 2019 FINAL DIAGNOSIS Problems Medical Problems: (1) Cerebral infarct Status: Acute (2) Left-sided weakness Status: Acute (3) Metabolic encephalopathy Status: Acute CONDITION ON DISCHARGE: Stable CODE STATUS: Code Status: Full PRISON: SNF STAY <30 DAYS: Yes POST DISCHARGE ORDERS: ACTIVITY ORDERS: Resume previous activity WEIGHT BEARING STATUS: Full weight bearing DIET AFTER DISCHARGE: Regular CHECKS AFTER DISCHARGE: CHECKS AFTER DISCHARGE: Check blood press - daily, Check your Temp as needed TREATMENT/EQUIPMENT ORDERS: Physical Therapy For: Evalulation/Treatment Occupational Therapy For: Evaluation/Treatment DISCHARGE MEDICATIONS: Home Meds Active Scripts Ondansetron Hcl (ZOFRAN) 4 Mg Tablet, 1 TAB PO PRN Q6HRS PRN for NAUSEA for 30 Days, TAB Prov:JUSTINA THOMAS MD 04/17/19 Temazepam (RESTORIL) 7.5 Mg Capsule, 7.5 MG PO PRN QHS PRN for INSOMNIA for 6 Days, #6 CAP Prov:JUSTINA THOMAS MD 04/17/19 Fluoxetine Hcl (FLUOXETINE HCL) 20 Mg Capsule, 20 MG PO DAILY for BPD for 30 Days, #30 CAP 5 Refills Prov:JUSTINA THOMAS MD 04/17/19 Acetaminophen (TYLENOL) 325 Mg Tablet, 650 MG PO PRN Q6HRS PRN for MILD PAIN / T EMP for 30 Days, #120 TAB 5 Refills Prov:JUSTINA THOMAS MD 04/17/19 Aspirin (ASPIRIN) 325 Mg Tablet, 325 MG PO DAILYWBKFT for CVA for 30 Days, #30 TAB 5 Refills Prov:JUSTINA THOMAS MD 04/17/19 Atorvastatin Calcium (ATORVASTATIN CALCIUM) 10 Mg Tablet, 10 MG PO QHS for HLD for 30 Days, #30 TAB 5 Refills Prov:JUSTINA THOMAS MD 04/17/19 JUSTINA THOMAS MD Apr 17, 2019 09:01
--- NOTE | 2019-04-17 09:04 | PDOC ---
PROGRESS NOTES Chief Complaint Chief Complaint ETOH use Acute right frontal lobe infarct with possible petechial hemorrhage. Left side weakness, LE > UE. Metabolic encephalopathy. Smoking. Cognitive impairment. Psychiatric problems. History of Present Illness History of Present Illness Mr Hauser is a 68yo M w/ PMHx who was admitted with left sided weakness. Carotid doppler reveals possible moderate right carotid stenosis and MRI confirms CVA - Acute right superior paramedian frontal and precentral gyrus cortical infarcts with possible petechial hemorrhage, Multifocal chronic supratentorial and infratentorial infarcts, Severe brain parenchymal volume loss, and moderate sequela chronic microvascular ischemia. He is speaking more today. No CP or SOB. Still with left arm weakness, but is able to make his bed today. 04/14/19 Pt seen and examined Pt was ambulating with a walker w/ PT assistance around the wade Chart Reviewed DW RN 04/13/19 Pt seen and examined at bedside Pt in NAD but still exhibits LUE weakness and unable to move LLE 04/12/19 Pt seen and examined lying in bed watching tv with meal DW RN Chart Reviewed 04/11/19 Pt seen and examined lying in bed with meal at bedside Chart Reviewed DW RN Vitals Vitals Vital Signs Date Time Temp Pulse Resp B/P (MAP) Pulse Ox O2 Delivery O2 Flow Rate FiO2 04/17/19 07:00 97.4 55 17 133/68 (89) 99 Room Air 97.4 Physical Exam General: Alert, Cooperative, No acute distress Heart: Regular rate, Normal S1, Normal S2 Lungs: Clear Abdomen: Soft, No tenderness Extremities: No clubbing, No cyanosis, No edema, Other (Unable to move left lower extremity) Skin: No rashes, No significant lesion, Other Assessment and Plan Assessmemt and Plan Problems Medical Problems: (1) Cerebral infarct Status: Acute (2) Left-sided weakness Status: Acute (3) Metabolic encephalopathy Status: Acute Comment Review of Relevant I have reviewed the following items jessica (where applicable) has been applied. Labs Laboratory Tests Test 04/16/19 07:15 White Blood Count 4.8 x10^3/uL (4.0-11.0) Red Blood Count 4.15 x10^6/uL (4.30-5.70) Hemoglobin 14.2 g/dL (13.0-17.5) Hematocrit 42.4 % (39.0-53.0) Mean Corpuscular Volume 102 fL (79-100) Mean Corpuscular Hemoglobin 34 pg (25-35) Mean Corpuscular Hemoglobin Concent 34 g/dL (31-37) Red Cell Distribution Width 14.2 % (11.5-14.5) Platelet Count 169 x10^3/uL (140-400) Neutrophils (%) (Auto) 51 % (31-73) Lymphocytes (%) (Auto) 28 % (24-48) Monocytes (%) (Auto) 14 % (0-9) Eosinophils (%) (Auto) 4 % (0-3) Basophils (%) (Auto) 3 % (0-3) Neutrophils # (Auto) 2.5 x10^3/uL (1.8-7.7) Lymphocytes # (Auto) 1.3 x10^3/uL (1.0-4.8) Monocytes # (Auto) 0.7 x10^3/uL (0.0-1.1) Eosinophils # (Auto) 0.2 x10^3/uL (0.0-0.7) Basophils # (Auto) 0.1 x10^3/uL (0.0-0.2) Sodium Level 137 mmol/L (136-145) Potassium Level 4.3 mmol/L (3.5-5.1) Chloride Level 102 mmol/L (98-107) Carbon Dioxide Level 32 mmol/L (21-32) Anion Gap 3 (6-14) Blood Urea Nitrogen 17 mg/dL (8-26) Creatinine 0.8 mg/dL (0.7-1.3) Estimated GFR (Cockcroft-Gault) 95.6 Glucose Level 81 mg/dL (70-99) Calcium Level 8.8 mg/dL (8.5-10.1) Medications Current Medications Aspirin (Javid Aspirin) 325 mg DAILYWBKFT PO Last administered on 04/16/19at 08:56; Start 04/10/19 at 08:00 Acetaminophen (Tylenol) 650 mg PRN Q6HRS PRN PO MILD PAIN / TEMP; Start 04/10/19 at 02:30 Ondansetron HCl (Zofran) 4 mg PRN Q6HRS PRN IV NAUSEA/VOMITING; Start 04/10/19 at 02:30 Temazepam (Restoril) 7.5 mg PRN QHS PRN PO INSOMNIA Last administered on 04/11/19at 20:39; Start 04/10/19 at 02:30 Atorvastatin Calcium (Lipitor) 10 mg QHS PO Last administered on 04/16/19at 20:42; Start 04/10/19 at 21:00 Fluoxetine HCl (PROzac) 20 mg DAILY PO Last administered on 04/16/19at 08:56; Start 04/12/19 at 13:00 Active Scripts Active Zofran (Ondansetron Hcl) 4 Mg Tablet 1 Tab PO PRN Q6HRS PRN 30 Days Restoril (Temazepam) 7.5 Mg Capsule 7.5 Mg PO PRN QHS PRN 6 Days Fluoxetine Hcl 20 Mg Capsule 20 Mg PO DAILY 30 Days Tylenol (Acetaminophen) 325 Mg Tablet 650 Mg PO PRN Q6HRS PRN 30 Days Aspirin 325 Mg Tablet 325 Mg PO DAILYWBKFT 30 Days Atorvastatin Calcium 10 Mg Tablet 10 Mg PO QHS 30 Days Vitals/I & O Vital Sign - Last 24 Hours 04/16/19 04/16/19 04/16/19 04/16/19 11:00 15:00 19:00 20:00 Temp 97.7 97.5 97.6 97.7 97.5 97.6 Pulse 60 59 70 Resp 17 17 18 B/P (MAP) 96/53 (67) 92/50 (64) 90/42 (58) Pulse Ox 99 97 100 O2 Delivery Room Air Room Air Room Air Room Air 04/16/19 04/17/19 04/17/19 23:00 03:00 07:00 Temp 97.5 97.4 97.4 97.5 97.4 97.4 Pulse 57 56 55 Resp 18 18 17 B/P (MAP) 105/43 (63) 115/60 (78) 133/68 (89) Pulse Ox 97 100 99 O2 Delivery Room Air Room Air Room Air Intake and Output 04/16/19 04/16/19 04/17/19 15:00 23:00 07:00 Intake Total 480 ml 100 ml Output Total 500 ml Balance 480 ml -400 ml Nutrition Consultation Dietary Evaluation: Recommendations by RD: Increase Calorie Intake, Protein supplementation Comments: REC continue with nutrition care order Expected Outcomes/Goals: to meet > 75% est nutr needs Malnutrition Findings: Body Fat Depletion (Non Severe: Mild Depletion Weight Status: Underweight JUSTINA THOMAS MD Apr 17, 2019 09:04
--- NOTE | 2019-04-17 09:07 | PDOC3 ---
Discharge Summary Visit Information Date of Admission: Apr 10, 2019 Date of Discharge: Apr 17, 2019 Admitting Diagnosis: Left sided weakness Final Diagnosis Problems Medical Problems: (1) Cerebral infarct Status: Acute (2) Left-sided weakness Status: Acute (3) Metabolic encephalopathy Status: Acute Brief Hospital Course Allergies Allergies Coded Allergies Type Severity Reaction Last Updated Verified No Known Drug Allergies 04/10/19 No Vital Signs Vital Signs Date Time Temp Pulse Resp B/P (MAP) Pulse Ox O2 Delivery O2 Flow Rate FiO2 04/17/19 07:00 97.4 55 17 133/68 (89) 99 Room Air 97.4 Lab Results Laboratory Tests Test 04/16/19 07:15 White Blood Count 4.8 x10^3/uL (4.0-11.0) Red Blood Count 4.15 x10^6/uL (4.30-5.70) Hemoglobin 14.2 g/dL (13.0-17.5) Hematocrit 42.4 % (39.0-53.0) Mean Corpuscular Volume 102 fL (79-100) Mean Corpuscular Hemoglobin 34 pg (25-35) Mean Corpuscular Hemoglobin Concent 34 g/dL (31-37) Red Cell Distribution Width 14.2 % (11.5-14.5) Platelet Count 169 x10^3/uL (140-400) Neutrophils (%) (Auto) 51 % (31-73) Lymphocytes (%) (Auto) 28 % (24-48) Monocytes (%) (Auto) 14 % (0-9) Eosinophils (%) (Auto) 4 % (0-3) Basophils (%) (Auto) 3 % (0-3) Neutrophils # (Auto) 2.5 x10^3/uL (1.8-7.7) Lymphocytes # (Auto) 1.3 x10^3/uL (1.0-4.8) Monocytes # (Auto) 0.7 x10^3/uL (0.0-1.1) Eosinophils # (Auto) 0.2 x10^3/uL (0.0-0.7) Basophils # (Auto) 0.1 x10^3/uL (0.0-0.2) Sodium Level 137 mmol/L (136-145) Potassium Level 4.3 mmol/L (3.5-5.1) Chloride Level 102 mmol/L (98-107) Carbon Dioxide Level 32 mmol/L (21-32) Anion Gap 3 (6-14) Blood Urea Nitrogen 17 mg/dL (8-26) Creatinine 0.8 mg/dL (0.7-1.3) Estimated GFR (Cockcroft-Gault) 95.6 Glucose Level 81 mg/dL (70-99) Calcium Level 8.8 mg/dL (8.5-10.1) Brief Hospital Course Mr Hauser is a 68yo M w/ PMHx who was admitted with left sided weakness. Carotid doppler reveals possible moderate right carotid stenosis and MRI confirms CVA - Acute right superior paramedian frontal and precentral gyrus cortical infarcts with possible petechial hemorrhage, Multifocal chronic supratentorial and infratentorial infarcts, Severe brain parenchymal volume loss, and moderate sequela chronic microvascular ischemia. Seen by neurology recommended PT/OT, inpatient rehab on d/c, ASA, statin. He is speaking more today. No CP or SOB. Still with left arm weakness, but is able to make his bed today. ETOH use Acute right frontal lobe infarct with possible petechial hemorrhage. Left side weakness, LE > UE. Metabolic encephalopathy. Smoking. Cognitive impairment. Psychiatric problems. Greater than 30 minutes Discharge Information Condition at Discharge: Improved Follow Up: Weeks Disposition/Orders: D/C to Another Facility Scheduled Aspirin (Aspirin) 325 Mg Tablet, 325 MG PO DAILYWBKFT for CVA for 30 Days, #30 Ref 5 Prescribed by: JUSTINA THOMAS MD on 04/17/19899 Atorvastatin Calcium (Atorvastatin Calcium) 10 Mg Tablet, 10 MG PO QHS for HLD for 30 Days, #30 Ref 5 Prescribed by: JUSTINA THOMAS MD on 04/17/19899 Fluoxetine Hcl (Fluoxetine Hcl) 20 Mg Capsule, 20 MG PO DAILY for BPD for 30 Days, #30 Ref 5 Prescribed by: JUSTINA THOMAS MD on 04/17/19899 Scheduled PRN Acetaminophen (Tylenol) 325 Mg Tablet, 650 MG PO PRN Q6HRS PRN for MILD PAIN / TEMP for 30 Days, #120 Ref 5 Prescribed by: JUSTINA THOMAS MD on 04/17/19899 Ondansetron Hcl (Zofran) 4 Mg Tablet, 1 TAB PO PRN Q6HRS PRN for NAUSEA for 30 Days Prescribed by: JUSTINA THOMAS MD on 04/17/19899 Temazepam (Restoril) 7.5 Mg Capsule, 7.5 MG PO PRN QHS PRN for INSOMNIA for 6 Days, #6 Prescribed by: JUSTINA THOMAS MD on 04/17/19899 JUSTINA THOMAS MD Apr 17, 2019 09:07
--- NOTE | 2019-04-17 09:49 | NUR ---
LIZETTE following pt. Transport arrived at 0830 than expected and left without picking up pt (before 0900) as there was no dc order at the time. LIZETTE requested transport person to stay at least until 0900 but he left stating he has to car pick up driver another person. RN had already called in Report and notified them regarding this. LIZETTE spoke with Melany at [facility] and she stated she will call LIZETTE back. LIZETTE phoned and faxed dc summary to [facility]. Addendum: 04/17/19 at 0955 by AICHA BAUER Spoke with Melany and DC arranged transport is supposed to pick him up today. No ETA at this time.
--- NOTE | 2019-04-17 14:54 | NUR ---
Discharge Note: MARELY SMALLS Discharge instructions and discharge home medications reviewed with Patient and a copy given. All questions have been answered and understanding verbalized. The following instructions and handouts were given: CVA/ stroke care Discontinued lines and drains: peripheral line. Patient discharged to [facility] with transport personel via [facility]. Report called to Stephanie @ [facility]. Rx sent w/ DC instructions and summary to accepting facility.
== END 2019-04-17 10:30 | DRG 64 ==
LOC: 6 SOUTH 04-10 00:44 → 5 SOUTH 04-14 18:41
PROVIDERS: ADMIT Internal Medicine; ATTEND Internal Medicine
PROC: 0HBRXZZ Excision of Toe Nail, External Approach (ICD-10-PCS; principal; 2019-04-10)
PROC: 0HBRXZZ Excision of Toe Nail, External Approach (ICD-10-PCS; 2019-04-10)
PROC: 0HBRXZZ Excision of Toe Nail, External Approach (ICD-10-PCS; 2019-04-10)
PROC: 0HBRXZZ Excision of Toe Nail, External Approach (ICD-10-PCS; 2019-04-10)
PROC: 0HBRXZZ Excision of Toe Nail, External Approach (ICD-10-PCS; 2019-04-10)
PROC: 0HBRXZZ Excision of Toe Nail, External Approach (ICD-10-PCS; 2019-04-10)
PROC: 0HBRXZZ Excision of Toe Nail, External Approach (ICD-10-PCS; 2019-04-10)
PROC: 0HBRXZZ Excision of Toe Nail, External Approach (ICD-10-PCS; 2019-04-10)
PROC: 0HBRXZZ Excision of Toe Nail, External Approach (ICD-10-PCS; 2019-04-10)
PROC: 0HBRXZZ Excision of Toe Nail, External Approach (ICD-10-PCS; 2019-04-10)
DX: I62.9 Nontraumatic intracranial hemorrhage, unspecified (principal); G93.41 Metabolic encephalopathy; F17.210 Nicotine dependence, cigarettes, uncomplicated; L60.1 Onycholysis; L60.2 Onychogryphosis; B35.1 Tinea unguium; Z82.49 Family history of ischemic heart disease and other diseases of the circulatory system; Z79.899 Other long term (current) drug therapy; Z79.82 Long term (current) use of aspirin
CPT/HCPCS: 36415; 70551; 80048; 80053; 80061; 80307; 82607; 84443; 85025; 85610; 93306; 93880; 95816; 92526; 92610; 97110; 97116; 97530; 97535; G0378

== ENCOUNTER 2020-09-13 16:41 | Inpatient (IN) | payer OTHER, MEDICAID ==
[~2020-09-13] VITALS: Ht 180.3 cm; Wt 67.5 kg
[~2020-09-13 16:41] MED LIST: ACET325T9 PO; ASPI325T8 PO; ATOR10TA60 PO; FLUO20CA20 PO; ONDA4TAB7 PO; TEMA7.5C2 PO
--- NOTE | 2020-09-13 17:02 | PHYS DOC ---
Past Medical History Smoking Status: Current Every Day Smoker ([facility]) General Adult EDM: Chief Complaint: ALTERED MENTAL STATUS HPI: HPI: 70 yo M PMH CVA (2019 LUE > LLE weakness) and dementia, presents to the ED for by EMS after son called 911, found patient down on the floor, soiled clothing with cords wrapped around his left foot (LKW 2 days ago). Patient does report he drank 1 beer. Hx unclear - pt has dementia and cannot recall how he feel. Has no active complaints in ed. Unknown last tetanus. ([facility] Terry SANDERS) Review of Systems: Review of Systems: Unable to be obtained due to dementia ([facility]) Heart Score: Risk Factors: Risk Factors: DM, Current or recent (<one month) smoker, HTN, HLP, family history of CAD, obesity. Risk Scores: Score 0 - 3: 2.5% MACE over next 6 weeks - Discharge Home Score 4 - 6: 20.3% MACE over next 6 weeks - Admit for Clinical Observation Score 7 - 10: 72.7% MACE over next 6 weeks - Early Invasive Strategies ([facility]) Allergies: Allergies: Allergies Coded Allergies Type Severity Reaction Last Updated Verified No Known Drug Allergies 04/10/19 No ([facility]) Physical Exam: PE: Constitutional: Unkept unshowered appearance, no acute distress, non-toxic appearance. [] HENT: Normocephalic, atraumatic, bilateral external ears normal, no facial tenderness to palpation, no septal hematoma, nose normal. [] Eyes: PERRLA, EOMI, conjunctiva normal, no discharge. [] Neck: Normal range of motion, no tenderness, supple, no stridor. [] Cardiovascular:Heart rate regular rhythm, no murmur [] Lungs & Thorax: Bilateral breath sounds clear to auscultation [] Abdomen: soft, no tenderness, Skin: Warm, dry, 0.5 centimeter laceration over distal foot, 3 cm laceration over proximal toe, 1 cm laceration in web space bt fourth and fifth toes Back: No tenderness, no CVA tenderness. [] Extremities: No midline spinal tenderness tenderness, no cyanosis, no clubbing, ROM intact, no edema. [] Neurologic: Alert but not oriented, moving all 4 extremities,, normal motor function, normal sensory function, no focal deficits noted. [] Psychologic: Flat affect, judgement normal, mood normal. [] (JOYCE JEROME DO) EKG: EKG: Angie 83 bpm, right axis deviation, QRS 120, QTC 456, right bundle branch block present with T wave inversion V2, could represent strain, T wave inversion in aVL, no ST elevations or ST depressions (JOYCE JEROME DO) Radiology/Procedures: Radiology/Procedures: Indication: Left foot laceration laceration #1 Procedure: The patient was placed in the appropriate position and anesthesia jenny und the laceration with 1% lidocaine. The area was then copiously irrigated. The laceration was closed with 4-0 Prolene, total of 2 sutures. The wound area was then dressed with antibiotic ointment and dressings. Total repaired wound length: 0.5 cm. Other Items: None The patient tolerated the procedure . Complications: None. Indication: Left foot laceration #2 Procedure: The patient was placed in the appropriate position and anesthesia around the laceration with 1% lidocaine. The area was then copiously irrigated. The laceration was closed with 4-0 Prolene, Total of 4 sutures. the wound area was then dressed with antibiotic ointment and dressings. Total repaired wound length: 3.5 cm. Other Items: None The patient tolerated the procedure . Complications: None. Indication: Left foot laceration #3 Procedure: The patient was placed in the appropriate position and anesthesia around the laceration with 1% lidocaine. The area was then copiously irrigated. The laceration was closed with 4-0 Prolene, total of 2 sutures. The wound area was then dressed with antibiotic ointment and dressings. Total repaired wound length: 1 cm. Other Items: None The patient tolerated the procedure . Complications: None. (JOYCE JEROME DO) Radiology/Procedures: EXAM: CT HEAD WITHOUT IV CONTRAST CLINICAL HISTORY: trip on cords, fall, injury COMPARISON: None. TECHNIQUE: Routine CT of the head without contrast. Soft tissues and bone windows were reviewed. PQRS compliance statement - One or more of the following individualized dose reduction techniques were utilized for this study: 1. Automated exposure control 2. Adjustment of the mA and/or kV according to patient size 3. Use of iterative reconstruction technique FINDINGS: There is no evidence of hemorrhage, mass or extra-axial fluid collection. Encephalomalacia in the left frontal region and to a lesser degree right frontal region likely from prior infarct. Loss of the sullivan-white differentiation with focal malacia in the right parietal region appear stable to prior MRI 04/10/2019. Otherwise the sullivan-white differentiation is maintained with no evidence of edema. Subcortical and periventricular as well as deep white matter hypoattenuation likely changes of chronic small vessel disease. There is no mass effect or shift of the intracranial structures. The ventricles and cerebral sulci are prominent for the patients stated age consistent with generalized cerebral volume loss. The cerebellum and brainstem are unremarkable. The calvarium demonstrates no evidence of fracture or focal lesion. Left posterior parietal scalp hematoma. There is normal aeration of the visualized paranasal sinuses and mastoid air cells. The visualized portions of the orbits are normal. Atherosclerotic calcifications of the intracranial internal carotid and vertebral arteries is seen. IMPRESSION: 1. No evidence for acute intracranial process. 2. White matter changes likely chronic small vessel disease. Encephalomalacia a s above, likely from prior infarcts. 3. The ventricles and cerebral sulci are prominent for the patients stated age consistent with generalized cerebral volume loss. (SANDEE GUTIERREZ MD) Course & Med Decision Making: Course & Med Decision Making Pertinent Labs and Imaging studies reviewed. (See chart for details) Concern for fall? vs syncope? in a dementia pt with left foot lacerations, s/p repair. Labs show rhabdomyolysis. Due to shift change patient was signed out to oncoming physician Dr. Gutierrez to follow-up CT imaging, plan to admit to medicine. ([facility]) Course & Med Decision Making Accepted care of patient at shift change. Pending radiology reads. Patient noted to be in rhabdo with a CK of 4300, started on high-volume fluids and admitted to hospitalist. EXAM: AP pelvis DATE: 09/13/2020 5:34 PM INDICATION: Reason: fall / Spl. Instructions: / History: COMPARISON: No Prior FINDINGS: Diffusely decreased bone mineral density. No acute fracture or dislocation. Vascular calcifications are seen. Moderate to large volume colonic stool con tent. IMPRESSION: No evidence of acute fracture or dislocation within the constraints of osteopenia. If there is persistent clinical concern for fracture, MRI is recommended. Moderate to large volume colonic stool content may be seen with constipation. Electronically signed by: Gokul Cavanaugh MD (09/13/2020 8:28 PM) MAVERICKROBER EXAM: AP View of the chest DATE: 09/13/2020 5:34 PM INDICATION: Reason: fall / Spl. Instructions: / History: COMPARISON: No Prior FINDINGS: The heart is not enlarged. Mediastinal and hilar contours are normal. No lower consolidation. Emphysematous changes are seen. Nodular opacities in the lower lungs measuring up to 8-9 mm.. No pleural effusion or pneumothorax. IMPRESSION: Nodular opacities in the lower lungs bilaterally measuring up to 8-9 mm. This can be further assessed by nonemergent CT. No acute cardiopulmonary process. (SANDEE GUTIERREZ MD) Dragon Disclaimer: Dragon Disclaimer: This electronic medical record was generated, in whole or in part, using a voice recognition dictation system. (JOYCE JEROME DO) Departure Departure Referrals: UNKNOWN PCP NAME (PCP) JOYCE JEROME DO Sep 13, 2020 17:02 SANDEE GUTIERREZ MD Sep 13, 2020 18:59
[2020-09-13] MEDS ORDERED: NEOMY/BACITR/POLYMYXIN OINT PACKET. TP ONE (17:15)
[2020-09-13] MEDS ORDERED: LIDOCAINE 1% Multi-Dose 20 ML VIAL. INJ ONE (17:15)
[2020-09-13] MEDS ORDERED: DIPH,PERTUSS(ACELL),TET VAC/PF 0.5 ML SYRINGE. VAX IM ONE (17:30)
[2020-09-13 17:35] LABS: BASO # 0.1 x10^3/uL (0.0-0.2); BASO % 1 % (0-3); EOS % 0 % (0-3); HEMATOCRIT 42.9 % (39.0-53.0); LYMPH # 0.8 x10^3/uL (1.0-4.8); LYMPH % 5 % (24-48); MEAN CORPUSCULAR HEMOGLOBIN 34 pg (25-35); MEAN CORPUSCULAR HGB CONC 35 g/dL (31-37); MEAN CORPUSCULAR VOLUME 97 fL (79-100); MONO # 1.3 x10^3/uL (0.0-1.1); MONO % 7 % (0-9); NEUT # 15.2 x10^3/uL (1.8-7.7); NEUT % 87 % (31-73); PLATELET COUNT 218 x10^3/uL (140-400); RED BLOOD COUNT 4.42 x10^6/uL (4.30-5.70); RED CELL DISTRIBUTION WIDTH 12.8 % (11.5-14.5); WHITE BLOOD COUNT 17.5 x10^3/uL (4.0-11.0)
[2020-09-13 17:46] LABS: CALCIUM 9.6 mg/dL (8.5-10.1); GFR 73.5; POTASSIUM 3.8 mmol/L (3.5-5.1)
[2020-09-13 17:52] LABS: ALBUMIN 3.5 g/dL (3.4-5.0); ALBUMIN/GLOBULIN RATIO 0.9 (1.0-1.7); TOTAL BILIRUBIN 1.5 mg/dL (0.2-1.0); TOTAL PROTEIN 7.5 g/dL (6.4-8.2)
[2020-09-13] MEDS ORDERED: IV NORMAL SALINE 1000ML BAG 1,000 ML IV ONE (18:15)
[2020-09-13] MEDS ORDERED: cefTRIAXone IV Push 1 GM VIAL. IVP ONE (18:30)
[2020-09-13] MEDS ORDERED: ACETAMINOPHEN 325 MG TABLET. PO PRN ×2 (18:45→22:15)
[2020-09-13] MEDS ORDERED: MORPHINE SULFATE 2 MG/ML VIAL. IV PRN (18:45)
--- NOTE | 2020-09-13 18:46 | RAD ---
EXAM: CT HEAD WITHOUT IV CONTRAST CLINICAL HISTORY: trip on cords, fall, injury COMPARISON: None. TECHNIQUE: Routine CT of the head without contrast. Soft tissues and bone windows were reviewed. PQRS compliance statement - One or more of the following individualized dose reduction techniques wer e utilized for this study: 1. Automated exposure control 2. Adjustment of the mA and/or kV according to patient size 3. Use of iterative reconstruction technique FINDINGS: There is no evidence of hemorrhage, mass or extra-axial fluid collection. Encephalomalacia in the left frontal region and to a lesser degree right frontal region likely from p rior infarct. Loss of the sullivan-white differentiation with focal malacia in the right parietal region appear stable to prior MRI 04/10/2019. Otherwise the sullivan-white differentiation is maintained with no evidence of edema. Subcortical and periventricular as well as deep white matter hypoattenuation likel y changes of chronic small vessel disease. There is no mass effect or shift of the intracranial structures. The ventricles and cerebral sulci are prominent for the patients stated age consistent with generaliz ed cerebral volume loss. The cerebellum and brainstem are unremarkable. The calvarium demonstrates no evidence of fracture or focal lesion. Left posterior parietal scalp hem atoma. There is normal aeration of the visualized paranasal sinuses and mastoid air cells. The visualized portions of the orbits are normal. Atherosclerotic calcifications of the intracranial internal carotid and vertebral arteries is seen. IMPRESSION: 1. No evidence for acute intracranial process. 2. White matter changes likely chronic small vessel disease. Encephalomalacia as above, likely from prior infarcts. 3. The ventricles and cerebral sulci are prominent for the patients stated age consistent with gener alized cerebral volume loss. EXAM: CT CERVICAL SPINE WITHOUT IV CONTRAST CLINICAL HISTORY: Reason: trip on cords / Spl. Instructions: / History: COMPARISON: None available. TECHNIQUE: Helical CT of the cervical spine was performed. Axial, coronal and sagittal reformatted im ages were also performed. PQRS compliance statement - One or more of the following individualized dose reduction techniques wer e utilized for this study: 1. Automated exposure control 2. Adjustment of the mA and/or kV according to patient size 3. Use of iterative reconstruction technique FINDINGS: Vertebral body heights are preserved. Atlantodental degenerative changes are seen. Mild C4-5, C5-6 di sc height loss. Endplate osteophytes C4-5 and C5-6. No acute fracture. Mild straightening of the norm al cervical lordosis. No spondylolisthesis. Biapical pleural/parenchymal scarring/thickening. IMPRESSION: 1. Multilevel spondylosis as above 2. Negative acute fracture or subluxation. Electronically signed by: Gokul Cavanaugh MD (09/13/2020 6:39 PM) JOSE
[2020-09-13 19:02] LABS: MAGNESIUM 1.8 mg/dL (1.8-2.4)
[2020-09-13 20:20] LABS: % ATYL 1 % (0-0); % BANDS 7 % (0-9); % BASOS 1 % (0-3); % LYMPHS 3 % (24-48); % MONOS 3 % (0-10); % SEGS 85 % (35-66); PLT ESTIMATE ADEQUATE (ADEQUATE)
--- NOTE | 2020-09-13 20:33 | RAD ---
EXAM: AP View of the chest DATE: 09/13/2020 5:34 PM INDICATION: Reason: fall / Spl. Instructions: / History: COMPARISON: No Prior FINDINGS: The heart is not enlarged. Mediastinal and hilar contours are normal. No lower consolidation. Emphysematous changes are seen. Nodular opacities in the lower lungs measurin g up to 8-9 mm.. No pleural effusion or pneumothorax. IMPRESSION: Nodular opacities in the lower lungs bilaterally measuring up to 8-9 mm. This can be further assessed by nonemergent CT. No acute cardiopulmonary process. Electronically signed by: Gokul Cavanaugh MD (09/13/2020 8:27 PM) JOSE
--- NOTE | 2020-09-13 20:33 | RAD ---
EXAM: AP pelvis DATE: 09/13/2020 5:34 PM INDICATION: Reason: fall / Spl. Instructions: / History: COMPARISON: No Prior FINDINGS: Diffusely decreased bone mineral density. No acute fracture or dislocation. Vascular calcifications a re seen. Moderate to large volume colonic stool content. IMPRESSION: No evidence of acute fracture or dislocation within the constraints of osteopenia. If there is persis tent clinical concern for fracture, MRI is recommended. Moderate to large volume colonic stool content may be seen with constipation. Electronically signed by: Gokul Cavanaugh MD (09/13/2020 8:28 PM) JOSE
[2020-09-13 21:03] LABS: BILIRUBIN,URINE NEGATIVE (NEG); CLARITY,URINE CLEAR; COLOR,URINE AMBER; NITRITE,URINE NEGATIVE (NEG); PH,URINE 5.5 (<5.0-8.0); PROTEIN,URINE NEGATIVE (NEG-TRACE); UROBILINOGEN,URINE 0.2 mg/dL (0.2 mg/dL)
--- NOTE | 2020-09-13 21:05 | NUR ---
Pt.just arrived from ED via bed w/ AMS, Sepsis and Rhabdo. He is alert x1 and can make some needs known.
[2020-09-13 21:09] LABS: AMORPHOUS SEDIMENT,UR PRESENT /HPF; AMPHETAMINE/METHAMPHETAMINE NEG (NEG); BACTERIA,URINE 0 /HPF (0-FEW); BARBITURATES NEG (NEG); BENZODIAZEPINES NEG (NEG); CANNABINOIDS POS (NEG); COCAINE NEG (NEG); HYALINE CASTS, URINE FEW /HPF; METHADONE NEG (NEG); OPIATES NEG (NEG); PHENCYCLIDINE NEG (NEG); RBC,URINE 0 /HPF (0-2); WBC,URINE 0 /HPF (0-4)
[2020-09-13 21:19] VITALS: BP 141/64
[2020-09-13] MEDS ORDERED: SENNOSIDES 8.6 MG TABLET PO PRN (22:15)
[2020-09-13] MEDS ORDERED: DOCUSATE SODIUM 100 MG CAPSULE. PO PRN (22:15)
[2020-09-13] MEDS ORDERED: ONDANSETRON PF 4 MG/2 ML VIAL. IVP PRN (22:15)
[2020-09-13] MEDS ORDERED: HALOPERIDOL LACTATE 5 MG/ML VIAL. IVP PRN (22:15)
[2020-09-13] MEDS ORDERED: cloNIDine HCL 0.1 MG TABLET PO PRN (22:15)
[2020-09-13] MEDS ORDERED: DEXTROSE 50% 25 GM / 50ML DISP.SYRIN. IV PRN (22:15)
--- NOTE | 2020-09-13 22:17 | PDOC1 ---
History and Physical Date of Service: DOS: DATE: 09/13/20 TIME: 22:06 Chief Complaint: Chief Complain: Found unresponsive History of Present Illness: HPI: History obtained from ED physician and chart review. Patient is a 70-year-old male with history of CVA in 2019 and dementia and alcohol use was brought to the ED by EMS after son called 911 and found patient on the floor and soiled in his clothing. Patient can only state that he was walking towards the bathroom and the next thing he remembered he was at the hospital. He knows that he drinks about a beer a day. Currently denies any fevers or chest pain or abdominal pain. Past Medical/Surgical History: PMH/PSH: Patient unable to provide detailed history due to altered mental status. Allergies: Allergies: Coded Allergies: No Known Drug Allergies (Unverified , 04/10/19) Family History: Family History: Reviewed with no relevant findings in the chart Social History: Social History: Current smoker and daily alcohol drinker. Current Medications: Current Medications Current Medications Neomycin/ Polymyxin/ Bacitracin (Triple Antibiotic Ointment) 1 pkt 1X ONCE TP Last administered on 09/13/20at 17:16; Start 09/13/20 at 17:15; Stop 09/13/20 at 17:16; Status DC Lidocaine HCl (Lidocaine 1% 20ml Vial) 20 ml 1X ONCE INJ Last administered on 09/13/20at 17:16; Start 09/13/20 at 17:15; Stop 09/13/20 at 17:16; Status DC Diphtheria/ Tetanus/Acell Pertussis (ADACEL TDap SYRINGE) 0.5 ml ONCE ONCE VAX IM Last administered on 09/13/20at 17:19; Start 09/13/20 at 17:30; Stop 09/13/20 at 17:31; Status DC Sodium Chloride 1,000 ml @ 1,000 mls/hr 1X ONCE IV Last administered on 09/13/20at 18:43; Start 09/13/20 at 18:15; Stop 09/13/20 at 19:14; Status DC Ceftriaxone Sodium (Rocephin) 1 gm 1X ONCE IVP Last administered on 09/13/20at 18:43; Start 09/13/20 at 18:30; Stop 09/13/20 at 18:31; Status DC Morphine Sulfate (Morphine Sulfate) 2 mg PRN Q2HR PRN IV PAIN; Start 09/13/20 at 18:45; Stop 09/14/20 at 18:44 Sodium Chloride 1,000 ml @ 200 mls/hr Q5H IV ; Start 09/13/20 at 18:45; Stop 09/14/20 at 18:44 Acetaminophen (Tylenol) 650 mg PRN Q4HRS PRN PO FEVER > 100.3'F; Start 09/13/20 at 18:45; Stop 09/14/20 at 18:44 Active Scripts Active Zofran (Ondansetron Hcl) 4 Mg Tablet 1 Tab PO PRN Q6HRS PRN 30 Days Restoril (Temazepam) 7.5 Mg Capsule 7.5 Mg PO PRN QHS PRN 6 Days Fluoxetine Hcl 20 Mg Capsule 20 Mg PO DAILY 30 Days Tylenol (Acetaminophen) 325 Mg Tablet 650 Mg PO PRN Q6HRS PRN 30 Days Aspirin 325 Mg Tablet 325 Mg PO DAILYWBKFT 30 Days Atorvastatin Calcium 10 Mg Tablet 10 Mg PO QHS 30 Days ROS: Review of Systems Review of System Unable to obtain due to altered mental status Physical Exam: Vital Signs: Vital Signs Date Time Temp Pulse Resp B/P (MAP) Pulse Ox O2 Delivery O2 Flow Rate FiO2 09/13/20 21:19 98.7 86 20 141/64 (89) 99 Room Air 98.7 Physcial Exam: GEN: No apparent distress. Alert and oriented HEENT: Normal cephalic, atraumatic, external auditory canals are patent EYES: Extraocular muscles are intact, pupil are equally round and reactive to light and accommodation MUSCULOSKELETAL: Well developed , well nourished, good range of motion ENDOCRINE: No thyromegaly was palpated LYMPHATICS: No cervical chain or axillary nodes were noted HEMATOPOIETIC: No bruising NECK: Supple, no JVD, no thyromegaly was noted LUNGS: Clear to auscultation in all lung humphrey without rhonchi or wheezing HEART: RRR, S!, S2 present. Peripheral pulses intact, no obvious murmurs noted ABDOMEN: Soft, nontender. Positive bowel sounds, no organomegaly, normal bowel sounds EXTREMITIES: Without clubbing, cyanosis, or edema. Pedal pulses intact. Negative Homans sign NEUROLOGIC: Normal speech and tone. A&O x 3, moves all extremities, no obvious focal deficits PSYCHIATRIC: Normal affect, normal mood. Stable SKIN: No ulcerations or rashes, good skin turgor, no jaundice VASCULAR: Good capillary refill, neurovascular bundle appears to be intact Labs: Labs: Laboratory Tests Test 09/13/20 17:23 09/13/20 20:55 White Blood Count 17.5 x10^3/uL (4.0-11.0) Red Blood Count 4.42 x10^6/uL (4.30-5.70) Hemoglobin 15.0 g/dL (13.0-17.5) Hematocrit 42.9 % (39.0-53.0) Mean Corpuscular Volume 97 fL (79-100) Mean Corpuscular Hemoglobin 34 pg (25-35) Mean Corpuscular Hemoglobin Concent 35 g/dL (31-37) Red Cell Distribution Width 12.8 % (11.5-14.5) Platelet Count 218 x10^3/uL (140-400) Neutrophils (%) (Auto) 87 % (31-73) Lymphocytes (%) (Auto) 5 % (24-48) Monocytes (%) (Auto) 7 % (0-9) Eosinophils (%) (Auto) 0 % (0-3) Basophils (%) (Auto) 1 % (0-3) Neutrophils # (Auto) 15.2 x10^3/uL (1.8-7.7) Lymphocytes # (Auto) 0.8 x10^3/uL (1.0-4.8) Monocytes # (Auto) 1.3 x10^3/uL (0.0-1.1) Eosinophils # (Auto) 0.0 x10^3/uL (0.0-0.7) Basophils # (Auto) 0.1 x10^3/uL (0.0-0.2) Segmented Neutrophils % 85 % (35-66) Band Neutrophils % 7 % (0-9) Lymphocytes % 3 % (24-48) Atypical Lymphocytes % (Manual) 1 % (0-0) Monocytes % 3 % (0-10) Basophils % 1 % (0-3) Platelet Estimate Adequate (ADEQUATE) Sodium Level 134 mmol/L (136-145) Potassium Level 3.8 mmol/L (3.5-5.1) Chloride Level 98 mmol/L (98-107) Carbon Dioxide Level 27 mmol/L (21-32) Anion Gap 9 (6-14) Blood Urea Nitrogen 32 mg/dL (8-26) Creatinine 1.0 mg/dL (0.7-1.3) Estimated GFR (Cockcroft-Gault) 73.5 BUN/Creatinine Ratio 32 (6-20) Glucose Level 102 mg/dL (70-99) Calcium Level 9.6 mg/dL (8.5-10.1) Phosphorus Level 3.0 mg/dL (2.6-4.7) Magnesium Level 1.8 mg/dL (1.8-2.4) Total Bilirubin 1.5 mg/dL (0.2-1.0) Aspartate Amino Transf (AST/SGOT) 151 U/L (15-37) Alanine Aminotransferase (ALT/SGPT) 49 U/L (16-63) Alkaline Phosphatase 62 U/L (46-116) Creatine Kinase 4350 U/L (39-308) Troponin I Quantitative 0.082 ng/mL (0.000-0.055) MJ-Tml-E-Type Natriuretic Peptide 1488 pg/mL (0-124) Total Protein 7.5 g/dL (6.4-8.2) Albumin 3.5 g/dL (3.4-5.0) Albumin/Globulin Ratio 0.9 (1.0-1.7) Ethyl Alcohol Level < 10 mg/dL (0-10) Urine Collection Type U cath Urine Color [place] Urine Clarity Clear Urine pH 5.5 (<5.0-8.0) Urine Specific [place] 1.025 (1.000-1.030) Urine Protein Negative mg/dL (NEG-TRACE) Urine Glucose (UA) Negative mg/dL (NEG) Urine Ketones (Stick) 15 mg/dL (NEG) Urine Blood Negative (NEG) Urine Nitrite Negative (NEG) Urine Bilirubin Negative (NEG) Urine Urobilinogen Dipstick 0.2 mg/dL (0.2 mg/dL) Urine Leukocyte Esterase Negative (NEG) Urine RBC 0 /HPF (0-2) Urine WBC 0 /HPF (0-4) Urine Squamous Epithelial Cells Few /LPF Urine Amorphous Sediment Present /HPF Urine Bacteria 0 /HPF (0-FEW) Urine Hyaline Casts Few /HPF Urine Mucus Slight /LPF Urine Opiates Screen Neg (NEG) Urine Methadone Screen Neg (NEG) Urine Barbiturates Neg (NEG) Urine Phencyclidine Screen Neg (NEG) Urine Amphetamine/Methamphetamine Neg (NEG) Urine Benzodiazepines Screen Neg (NEG) Urine Cocaine Screen Neg (NEG) Urine Cannabinoids Screen Pos (NEG) Urine Ethyl Alcohol Neg (NEG) Laboratory Tests Test 09/13/20 17:23 09/13/20 20:55 White Blood Count 17.5 x10^3/uL (4.0-11.0) Red Blood Count 4.42 x10^6/uL (4.30-5.70) Hemoglobin 15.0 g/dL (13.0-17.5) Hematocrit 42.9 % (39.0-53.0) Mean Corpuscular Volume 97 fL (79-100) Mean Corpuscular Hemoglobin 34 pg (25-35) Mean Corpuscular Hemoglobin Concent 35 g/dL (31-37) Red Cell Distribution Width 12.8 % (11.5-14.5) Platelet Count 218 x10^3/uL (140-400) Neutrophils (%) (Auto) 87 % (31-73) Lymphocytes (%) (Auto) 5 % (24-48) Monocytes (%) (Auto) 7 % (0-9) Eosinophils (%) (Auto) 0 % (0-3) Basophils (%) (Auto) 1 % (0-3) Neutrophils # (Auto) 15.2 x10^3/uL (1.8-7.7) Lymphocytes # (Auto) 0.8 x10^3/uL (1.0-4.8) Monocytes # (Auto) 1.3 x10^3/uL (0.0-1.1) Eosinophils # (Auto) 0.0 x10^3/uL (0.0-0.7) Basophils # (Auto) 0.1 x10^3/uL (0.0-0.2) Segmented Neutrophils % 85 % (35-66) Band Neutrophils % 7 % (0-9) Lymphocytes % 3 % (24-48) Atypical Lymphocytes % (Manual) 1 % (0-0) Monocytes % 3 % (0-10) Basophils % 1 % (0-3) Platelet Estimate Adequate (ADEQUATE) Sodium Level 134 mmol/L (136-145) Potassium Level 3.8 mmol/L (3.5-5.1) Chloride Level 98 mmol/L (98-107) Carbon Dioxide Level 27 mmol/L (21-32) Anion Gap 9 (6-14) Blood Urea Nitrogen 32 mg/dL (8-26) Creatinine 1.0 mg/dL (0.7-1.3) Estimated GFR (Cockcroft-Gault) 73.5 BUN/Creatinine Ratio 32 (6-20) Glucose Level 102 mg/dL (70-99) Calcium Level 9.6 mg/dL (8.5-10.1) Phosphorus Level 3.0 mg/dL (2.6-4.7) Magnesium Level 1.8 mg/dL (1.8-2.4) Total Bilirubin 1.5 mg/dL (0.2-1.0) Aspartate Amino Transf (AST/SGOT) 151 U/L (15-37) Alanine Aminotransferase (ALT/SGPT) 49 U/L (16-63) Alkaline Phosphatase 62 U/L (46-116) Creatine Kinase 4350 U/L (39-308) Troponin I Quantitative 0.082 ng/mL (0.000-0.055) OK-Tux-L-Type Natriuretic Peptide 1488 pg/mL (0-124) Total Protein 7.5 g/dL (6.4-8.2) Albumin 3.5 g/dL (3.4-5.0) Albumin/Globulin Ratio 0.9 (1.0-1.7) Ethyl Alcohol Level < 10 mg/dL (0-10) Urine Collection Type U cath Urine Color [place] Urine Clarity Clear Urine pH 5.5 (<5.0-8.0) Urine Specific [place] 1.025 (1.000-1.030) Urine Protein Negative mg/dL (NEG-TRACE) Urine Glucose (UA) Negative mg/dL (NEG) Urine Ketones (Stick) 15 mg/dL (NEG) Urine Blood Negative (NEG) Urine Nitrite Negative (NEG) Urine Bilirubin Negative (NEG) Urine Urobilinogen Dipstick 0.2 mg/dL (0.2 mg/dL) Urine Leukocyte Esterase Negative (NEG) Urine RBC 0 /HPF (0-2) Urine WBC 0 /HPF (0-4) Urine Squamous Epithelial Cells Few /LPF Urine Amorphous Sediment Present /HPF Urine Bacteria 0 /HPF (0-FEW) Urine Hyaline Casts Few /HPF Urine Mucus Slight /LPF Urine Opiates Screen Neg (NEG) Urine Methadone Screen Neg (NEG) Urine Barbiturates Neg (NEG) Urine Phencyclidine Screen Neg (NEG) Urine Amphetamine/Methamphetamine Neg (NEG) Urine Benzodiazepines Screen Neg (NEG) Urine Cocaine Screen Neg (NEG) Urine Cannabinoids Screen Pos (NEG) Urine Ethyl Alcohol Neg (NEG) Images: Images CT HEAD IMPRESSION: 1. No evidence for acute intracranial process. 2. White matter changes likely chronic small vessel disease. Encephalomalacia as above, likely from prior infarcts. 3. The ventricles and cerebral sulci are prominent for the patients stated age consistent with generalized cerebral volume loss. XR PELVIS IMPRESSION: No evidence of acute fracture or dislocation within the constraints of osteopenia. If there is persistent clinical concern for fracture, MRI is r ecommended. Moderate to large volume colonic stool content may be seen with constipation. CXR IMPRESSION: Nodular opacities in the lower lungs bilaterally measuring up to 8-9 mm. This can be further assessed by nonemergent CT. No acute cardiopulmonary process. Assessment/Plan Assessment/Plan Acute encephalopathy NOS Syncope Reactive leukocytosis Elevated creatinine due to rhabdomyolysis Elevated troponins likely due to demand ischemia Hyponatremia Prerenal azotemia Positive for cannabinoid use History of alcohol use Pulmonology also seen on chest x-ray, recommend outpatient CT scan evaluation upon discharge Admit to medicine for further management Trend creatinine levels every 8 hours for at least 24 hours until levels have trended down to less than 1000 Continue NS at 200 cc/h Strict I's and O's and manage urine output closely to attempt to maintain urine output of about 100-200 cc/h Pending TSH, B12, folate levels CIWA protocol Consider dementia prevention protocol Encourage early and frequent mobilization PT OT IV Haldol as needed for agitation, consider sitter as needed if non-redirectable agitation Avoid physical restraints, catheters or tubes, and benzodiazepines Nutrition consult if there is malnutrition or concern for vitamin deficiencies Start thiamine and folate supplementation Trend troponin Continue telemetry monitoring, consider cardiology consult if there are any telemetry events Pending TTE Lovenox for DVT prophylaxis Protonix GI prophylaxis ADA diet Full code Discussed with RN and SW Dispo inpatient management as above DPOA is the son Justifications for Admission Other Justification AMS, Rhabdomyolysis RONNIE RODRIGUEZ MD Sep 13, 2020 22:17
[2020-09-13] MEDS: ENOXAPARIN 40 MG/0.4 ML SYRINGE. SQ SCH (22:33)
[2020-09-13] MEDS: IV NORMAL SALINE 1000ML BAG 1,000 ML IV SCH ×2 (22:33→22:34)
[2020-09-13 23:00] VITALS: BP 106/51
[2020-09-14] VITALS (7 sets, daily range): BP systolic 87–121; BP diastolic 36–61
[2020-09-14 03:47] LABS: BASO # 0.1 x10^3/uL (0.0-0.2); BASO % 1 % (0-3); EOS % 0 % (0-3); HEMATOCRIT 38.5 % (39.0-53.0); HEMOGLOBIN 13.3 g/dL (13.0-17.5); LYMPH % 7 % (24-48); MEAN CORPUSCULAR HEMOGLOBIN 34 pg (25-35); MEAN CORPUSCULAR HGB CONC 35 g/dL (31-37); MEAN CORPUSCULAR VOLUME 98 fL (79-100); MONO # 1.3 x10^3/uL (0.0-1.1); MONO % 9 % (0-9); NEUT % 83 % (31-73); PLATELET COUNT 189 x10^3/uL (140-400); RED BLOOD COUNT 3.92 x10^6/uL (4.30-5.70); RED CELL DISTRIBUTION WIDTH 12.8 % (11.5-14.5); WHITE BLOOD COUNT 14.5 x10^3/uL (4.0-11.0)
[2020-09-14 03:48] LABS: ALBUMIN 2.9 g/dL (3.4-5.0); ALBUMIN/GLOBULIN RATIO 0.8 (1.0-1.7); CALCIUM 8.8 mg/dL (8.5-10.1); GFR 73.5; POTASSIUM 3.6 mmol/L (3.5-5.1); TOTAL PROTEIN 6.4 g/dL (6.4-8.2)
[2020-09-14] MEDS: IV NORMAL SALINE 1000ML BAG 1,000 ML IV SCH ×4 (04:02→19:20)
--- NOTE | 2020-09-14 04:43 | EKG ---
[facility] [address] [place] [address] Test Date: 2020-09-13 Test Time: 16:51:51 Pat Name: MARELY SMALLS Department: Room: 538 1 Gender: M Weight Clerk: : 1950 Requested By: JOYCE JEROME Order Number: [id number] Reading MD: Pa Portillo Measurements Intervals [place] Rate: 83 P: 74 RI: 136 QRS: 85 QRSD: 120 T: 67 QT: 388 QTc: 456 Interpretive Statements SINUS RHYTHM LEFT ATRIAL ABNORMALITY INCOMPLETE RIGHT BUNDLE BRANCH BLOCK Electronically Signed On 09-22-2020 10:42:00 IT NETWORK ADMINISTRATOR by Pa Portillo
--- NOTE | 2020-09-14 06:32 | RAD ---
Left shoulder AP and scapular x-rays 2 views HISTORY: Left shoulder pain. FINDINGS: Nipple shadow density at the left lung base as was present on the prior chest x-ray. No dis location. No fracture of the humeral head or neck or scapula or glenoid. There is a fracture of the l ateral clavicle. Extensive sclerotic bony margins suggest that this is chronic rather than acute. No separation of the common clavicular joint evident. IMPRESSION: Traumatic fracture fracture lateral clavicle with ill-defined margins which may suggest t hat this is subacute or chronic. If there has been recent trauma and there is localized pain to the l ateral clavicle, an acute fracture would be a consideration. No dislocation. Electronically signed by: Malik Robles MD (09/14/2020 6:26 AM) TAMMIE
[2020-09-14] MEDS ORDERED: FLU VACC QS 2020-21(6MOS+)/PF 0.5 ML SYRINGE. VAX IM ONE (09:00)
[2020-09-14] MEDS: FOLIC ACID 1 MG TABLET. PO SCH (09:01)
[2020-09-14] MEDS: THIAMINE 100 MG TABLET. PO SCH (09:01)
[2020-09-14 09:08] LABS: BASO # 0.2 x10^3/uL (0.0-0.2); BASO % 1 % (0-3); EOS % 0 % (0-3); HEMATOCRIT 36.6 % (39.0-53.0); HEMOGLOBIN 12.4 g/dL (13.0-17.5); LYMPH # 0.9 x10^3/uL (1.0-4.8); LYMPH % 7 % (24-48); MEAN CORPUSCULAR HEMOGLOBIN 34 pg (25-35); MEAN CORPUSCULAR HGB CONC 34 g/dL (31-37); MEAN CORPUSCULAR VOLUME 99 fL (79-100); MONO # 1.1 x10^3/uL (0.0-1.1); MONO % 9 % (0-9); NEUT # 10.2 x10^3/uL (1.8-7.7); NEUT % 82 % (31-73); PLATELET COUNT 183 x10^3/uL (140-400); RED BLOOD COUNT 3.69 x10^6/uL (4.30-5.70); RED CELL DISTRIBUTION WIDTH 13.1 % (11.5-14.5); WHITE BLOOD COUNT 12.5 x10^3/uL (4.0-11.0)
[2020-09-14 09:43] LABS: CALCIUM 8.6 mg/dL (8.5-10.1); CREATININE 0.8 mg/dL (0.7-1.3); PHOSPHORUS 2.3 mg/dL (2.6-4.7); POTASSIUM 3.8 mmol/L (3.5-5.1)
--- NOTE | 2020-09-14 09:45 | PDOC ---
PROGRESS NOTES Date of Service: DATE: 09/14/20 TIME: 09:41 Chief Complaint Chief Complaint Acute encephalopathy NOS Syncope Reactive leukocytosis Elevated creatinine due to rhabdomyolysis Elevated troponins likely due to demand ischemia Hyponatremia Prerenal azotemia Positive for cannabinoid use History of alcohol use Pulmonology also seen on chest x-ray, recommend outpatient CT scan evaluation upon discharge Admit to medicine for further management Trend creatinine levels every 8 hours for at least 24 hours until levels have trended down to less than 1000 Continue NS at 200 cc/h Strict I's and O's and manage urine output closely to attempt to maintain urine output of about 100-200 cc/h Pending TSH, B12, folate levels CIWA protocol Consider dementia prevention protocol Encourage early and frequent mobilization PT OT IV Haldol as needed for agitation, consider sitter as needed if non-redirectable agitation Avoid physical restraints, catheters or tubes, and benzodiazepines Nutrition consult if there is malnutrition or concern for vitamin deficiencies Start thiamine and folate supplementation Trend troponin Continue telemetry monitoring, consider cardiology consult if there are any telemetry events Pending TTE Lovenox for DVT prophylaxis Protonix GI prophylaxis ADA diet Full code Discussed with RN and SW Dispo inpatient management as above DPOA is the son History of Present Illness History of Present Illness History and Physical Date of Service: DOS: DATE: 09/13/20 TIME: 22:06 Chief Complaint: Chief Complain: Found unresponsive History of Present Illness: HPI: History obtained from ED physician and chart review. Patient is a 70-year-old male with history of CVA in 2019 and dementia and alc ohol use was brought to the ED by EMS after son called 911 and found patient on the floor and soiled in his clothing. Patient can only state that he was walking towards the bathroom and the next thing he remembered he was at the hospital. He knows that he drinks about a beer a day. Currently denies any fevers or chest pain or abdominal pain. 09/14: No acute events reported overnight, case discussed with nursing staff patient in no acute distress no complaints during my visit, patient certainly having some visual hallucinations during my encounter. Seems to drink more than 1 beer a day given his degree of cognitive impairment. We will continue to follow his neurological status throughout Vitals Vitals Vital Signs Date Time Temp Pulse Resp B/P (MAP) Pulse Ox O2 Delivery O2 Flow Rate FiO2 09/14/20 07:00 99.0 71 18 114/55 (74) 98 Room Air 99.0 Physical Exam Physical Exam Gen.: well-developed well-nourished in no apparent distress Head: Normal shape atraumatic Eyes: Pupils equal reactive to light and accommodation, normal conjunctivae and lids Ears: Normal shape Nose: Normal shape no trauma Mouth: No exudates of the back of throat no thrush no lesions Neck: Supple no JVD no carotid bruit or lymphadenopathy no thyromegaly Chest: Lungs clear to auscultation with good inspiratory effort no crackles rales or rhonchi Cardiovascular: S1-S2 regular rhythm no murmurs gallops or rubs Abdomen: Bowel sounds present soft nontender no hepatosplenomegaly appreciated sign Extremities: No clubbing no cyanosis no edema peripheral pulses palpated bilaterally Neurological: Alert awake oriented in person, cranial nerves II through XII intact, no motor or sensory deficits appreciated Psych: cooperative Lungs: Clear Labs LABS Laboratory Tests Test 09/13/20 17:23 09/13/20 20:55 09/14/20 01:20 09/14/20 08:35 White Blood Count 17.5 x10^3/uL (4.0-11.0) 14.5 x10^3/uL (4.0-11.0) 12.5 x10^3/uL (4.0-11.0) Red Blood Count 4.42 x10^6/uL (4.30-5.70) 3.92 x10^6/uL (4.30-5.70) 3.69 x10^6/uL (4.30-5.70) Hemoglobin 15.0 g/dL (13.0-17.5) 13.3 g/dL (13.0-17.5) 12.4 g/dL (13.0-17.5) Hematocrit 42.9 % (39.0-53.0) 38.5 % (39.0-53.0) 36.6 % (39.0-53.0) Mean Corpuscular Volume 97 fL (79-100) 98 fL (79-100) 99 fL (79-100) Mean Corpuscular Hemoglobin 34 pg (25-35) 34 pg (25-35) 34 pg (25-35) Mean Corpuscular Hemoglobin Concent 35 g/dL (31-37) 35 g/dL (31-37) 34 g/dL (31-37) Red Cell Distribution Width 12.8 % (11.5-14.5) 12.8 % (11.5-14.5) 13.1 % (11.5-14.5) Platelet Count 218 x10^3/uL (140-400) 189 x10^3/uL (140-400) 183 x10^3/uL (140-400) Neutrophils (%) (Auto) 87 % (31-73) 83 % (31-73) 82 % (31-73) Lymphocytes (%) (Auto) 5 % (24-48) 7 % (24-48) 7 % (24-48) Monocytes (%) (Auto) 7 % (0-9) 9 % (0-9) 9 % (0-9) Eosinophils (%) (Auto) 0 % (0-3) 0 % (0-3) 0 % (0-3) Basophils (%) (Auto) 1 % (0-3) 1 % (0-3) 1 % (0-3) Neutrophils # (Auto) 15.2 x10^3/uL (1.8-7.7) 12.0 x10^3/uL (1.8-7.7) 10.2 x10^3/uL (1.8-7.7) Lymphocytes # (Auto) 0.8 x10^3/uL (1.0-4.8) 1.0 x10^3/uL (1.0-4.8) 0.9 x10^3/uL (1.0-4.8) Monocytes # (Auto) 1.3 x10^3/uL (0.0-1.1) 1.3 x10^3/uL (0.0-1.1) 1.1 x10^3/uL (0.0-1.1) Eosinophils # (Auto) 0.0 x10^3/uL (0.0-0.7) 0.0 x10^3/uL (0.0-0.7) 0.0 x10^3/uL (0.0-0.7) Basophils # (Auto) 0.1 x10^3/uL (0.0-0.2) 0.1 x10^3/uL (0.0-0.2) 0.2 x10^3/uL (0.0-0.2) Segmented Neutrophils % 85 % (35-66) Band Neutrophils % 7 % (0-9) Lymphocytes % 3 % (24-48) Atypical Lymphocytes % (Manual) 1 % (0-0) Monocytes % 3 % (0-10) Basophils % 1 % (0-3) Platelet Estimate Adequate (ADEQUATE) Sodium Level 134 mmol/L (136-145) 136 mmol/L (136-145) Potassium Level 3.8 mmol/L (3.5-5.1) 3.6 mmol/L (3.5-5.1) Chloride Level 98 mmol/L (98-107) 102 mmol/L (98-107) Carbon Dioxide Level 27 mmol/L (21-32) 23 mmol/L (21-32) Anion Gap 9 (6-14) 11 (6-14) Blood Urea Nitrogen 32 mg/dL (8-26) 34 mg/dL (8-26) Creatinine 1.0 mg/dL (0.7-1.3) 1.0 mg/dL (0.7-1.3) Estimated GFR (Cockcroft-Gault) 73.5 73.5 BUN/Creatinine Ratio 32 (6-20) 34 (6-20) Glucose Level 102 mg/dL (70-99) 139 mg/dL (70-99) Calcium Level 9.6 mg/dL (8.5-10.1) 8.8 mg/dL (8.5-10.1) Phosphorus Level 3.0 mg/dL (2.6-4.7) Magnesium Level 1.8 mg/dL (1.8-2.4) Total Bilirubin 1.5 mg/dL (0.2-1.0) 1.0 mg/dL (0.2-1.0) Aspartate Amino Transf (AST/SGOT) 151 U/L (15-37) 130 U/L (15-37) Alanine Aminotransferase (ALT/SGPT) 49 U/L (16-63) 50 U/L (16-63) Alkaline Phosphatase 62 U/L (46-116) 50 U/L (46-116) Creatine Kinase 4350 U/L (39-308) 3367 U/L (39-308) Troponin I Quantitative 0.082 ng/mL (0.000-0.055) 0.068 ng/mL (0.000-0.055) KX-Ntd-F-Type Natriuretic Peptide 1488 pg/mL (0-124) Total Protein 7.5 g/dL (6.4-8.2) 6.4 g/dL (6.4-8.2) Albumin 3.5 g/dL (3.4-5.0) 2.9 g/dL (3.4-5.0) Albumin/Globulin Ratio 0.9 (1.0-1.7) 0.8 (1.0-1.7) Ethyl Alcohol Level < 10 mg/dL (0-10) Urine Collection Type U cath Urine Color [place] Urine Clarity Clear Urine pH 5.5 (<5.0-8.0) Urine Specific [place] 1.025 (1.000-1.030) Urine Protein Negative mg/dL (NEG-TRACE) Urine Glucose (UA) Negative mg/dL (NEG) Urine Ketones (Stick) 15 mg/dL (NEG) Urine Blood Negative (NEG) Urine Nitrite Negative (NEG) Urine Bilirubin Negative (NEG) Urine Urobilinogen Dipstick 0.2 mg/dL (0.2 mg/dL) Urine Leukocyte Esterase Negative (NEG) Urine RBC 0 /HPF (0-2) Urine WBC 0 /HPF (0-4) Urine Squamous Epithelial Cells Few /LPF Urine Amorphous Sediment Present /HPF Urine Bacteria 0 /HPF (0-FEW) Urine Hyaline Casts Few /HPF Urine Mucus Slight /LPF Urine Opiates Screen Neg (NEG) Urine Methadone Screen Neg (NEG) Urine Barbiturates Neg (NEG) Urine Phencyclidine Screen Neg (NEG) Urine Amphetamine/Methamphetamine Neg (NEG) Urine Benzodiazepines Screen Neg (NEG) Urine Cocaine Screen Neg (NEG) Urine Cannabinoids Screen Pos (NEG) Urine Ethyl Alcohol Neg (NEG) Thyroid Stimulating Hormone (TSH) 1.361 uIU/mL (0.358-3.74) Review of Systems Review of Systems Review of systems pertinent as per HPI otherwise 14 point review of system is negative Assessment and Plan Assessmemt and Plan Problems Medical Problems: (1) AMS (altered mental status) Status: Acute (2) Rhabdomyolysis Status: Acute Comment Review of Relevant I have reviewed the following items jessica (where applicable) has been applied. Labs Laboratory Tests Test 09/13/20 17:23 09/13/20 20:55 09/14/20 01:20 09/14/20 08:35 White Blood Count 17.5 x10^3/uL (4.0-11.0) 14.5 x10^3/uL (4.0-11.0) 12.5 x10^3/uL (4.0-11.0) Red Blood Count 4.42 x10^6/uL (4.30-5.70) 3.92 x10^6/uL (4.30-5.70) 3.69 x10^6/uL (4.30-5.70) Hemoglobin 15.0 g/dL (13.0-17.5) 13.3 g/dL (13.0-17.5) 12.4 g/dL (13.0-17.5) Hematocrit 42.9 % (39.0-53.0) 38.5 % (39.0-53.0) 36.6 % (39.0-53.0) Mean Corpuscular Volume 97 fL (79-100) 98 fL (79-100) 99 fL (79-100) Mean Corpuscular Hemoglobin 34 pg (25-35) 34 pg (25-35) 34 pg (25-35) Mean Corpuscular Hemoglobin Concent 35 g/dL (31-37) 35 g/dL (31-37) 34 g/dL (31-37) Red Cell Distribution Width 12.8 % (11.5-14.5) 12.8 % (11.5-14.5) 13.1 % (11.5-14.5) Platelet Count 218 x10^3/uL (140-400) 189 x10^3/uL (140-400) 183 x10^3/uL (140-400) Neutrophils (%) (Auto) 87 % (31-73) 83 % (31-73) 82 % (31-73) Lymphocytes (%) (Auto) 5 % (24-48) 7 % (24-48) 7 % (24-48) Monocytes (%) (Auto) 7 % (0-9) 9 % (0-9) 9 % (0-9) Eosinophils (%) (Auto) 0 % (0-3) 0 % (0-3) 0 % (0-3) Basophils (%) (Auto) 1 % (0-3) 1 % (0-3) 1 % (0-3) Neutrophils # (Auto) 15.2 x10^3/uL (1.8-7.7) 12.0 x10^3/uL (1.8-7.7) 10.2 x10^3/uL (1.8-7.7) Lymphocytes # (Auto) 0.8 x10^3/uL (1.0-4.8) 1.0 x10^3/uL (1.0-4.8) 0.9 x10^3/uL (1.0-4.8) Monocytes # (Auto) 1.3 x10^3/uL (0.0-1.1) 1.3 x10^3/uL (0.0-1.1) 1.1 x10^3/uL (0.0-1.1) Eosinophils # (Auto) 0.0 x10^3/uL (0.0-0.7) 0.0 x10^3/uL (0.0-0.7) 0.0 x10^3/uL (0.0-0.7) Basophils # (Auto) 0.1 x10^3/uL (0.0-0.2) 0.1 x10^3/uL (0.0-0.2) 0.2 x10^3/uL (0.0-0.2) Segmented Neutrophils % 85 % (35-66) Band Neutrophils % 7 % (0-9) Lymphocytes % 3 % (24-48) Atypical Lymphocytes % (Manual) 1 % (0-0) Monocytes % 3 % (0-10) Basophils % 1 % (0-3) Platelet Estimate Adequate (ADEQUATE) Sodium Level 134 mmol/L (136-145) 136 mmol/L (136-145) Potassium Level 3.8 mmol/L (3.5-5.1) 3.6 mmol/L (3.5-5.1) Chloride Level 98 mmol/L (98-107) 102 mmol/L (98-107) Carbon Dioxide Level 27 mmol/L (21-32) 23 mmol/L (21-32) Anion Gap 9 (6-14) 11 (6-14) Blood Urea Nitrogen 32 mg/dL (8-26) 34 mg/dL (8-26) Creatinine 1.0 mg/dL (0.7-1.3) 1.0 mg/dL (0.7-1.3) Estimated GFR (Cockcroft-Gault) 73.5 73.5 BUN/Creatinine Ratio 32 (6-20) 34 (6-20) Glucose Level 102 mg/dL (70-99) 139 mg/dL (70-99) Calcium Level 9.6 mg/dL (8.5-10.1) 8.8 mg/dL (8.5-10.1) Phosphorus Level 3.0 mg/dL (2.6-4.7) Magnesium Level 1.8 mg/dL (1.8-2.4) Total Bilirubin 1.5 mg/dL (0.2-1.0) 1.0 mg/dL (0.2-1.0) Aspartate Amino Transf (AST/SGOT) 151 U/L (15-37) 130 U/L (15-37) Alanine Aminotransferase (ALT/SGPT) 49 U/L (16-63) 50 U/L (16-63) Alkaline Phosphatase 62 U/L (46-116) 50 U/L (46-116) Creatine Kinase 4350 U/L (39-308) 3367 U/L (39-308) Troponin I Quantitative 0.082 ng/mL (0.000-0.055) 0.068 ng/mL (0.000-0.055) CD-Ofy-A-Type Natriuretic Peptide 1488 pg/mL (0-124) Total Protein 7.5 g/dL (6.4-8.2) 6.4 g/dL (6.4-8.2) Albumin 3.5 g/dL (3.4-5.0) 2.9 g/dL (3.4-5.0) Albumin/Globulin Ratio 0.9 (1.0-1.7) 0.8 (1.0-1.7) Ethyl Alcohol Level < 10 mg/dL (0-10) Urine Collection Type U cath Urine Color [place] Urine Clarity Clear Urine pH 5.5 (<5.0-8.0) Urine Specific [place] 1.025 (1.000-1.030) Urine Protein Negative mg/dL (NEG-TRACE) Urine Glucose (UA) Negative mg/dL (NEG) Urine Ketones (Stick) 15 mg/dL (NEG) Urine Blood Negative (NEG) Urine Nitrite Negative (NEG) Urine Bilirubin Negative (NEG) Urine Urobilinogen Dipstick 0.2 mg/dL (0.2 mg/dL) Urine Leukocyte Esterase Negative (NEG) Urine RBC 0 /HPF (0-2) Urine WBC 0 /HPF (0-4) Urine Squamous Epithelial Cells Few /LPF Urine Amorphous Sediment Present /HPF Urine Bacteria 0 /HPF (0-FEW) Urine Hyaline Casts Few /HPF Urine Mucus Slight /LPF Urine Opiates Screen Neg (NEG) Urine Methadone Screen Neg (NEG) Urine Barbiturates Neg (NEG) Urine Phencyclidine Screen Neg (NEG) Urine Amphetamine/Methamphetamine Neg (NEG) Urine Benzodiazepines Screen Neg (NEG) Urine Cocaine Screen Neg (NEG) Urine Cannabinoids Screen Pos (NEG) Urine Ethyl Alcohol Neg (NEG) Thyroid Stimulating Hormone (TSH) 1.361 uIU/mL (0.358-3.74) Laboratory Tests Test 09/13/20 17:23 09/13/20 20:55 09/14/20 01:20 09/14/20 08:35 White Blood Count 17.5 x10^3/uL (4.0-11.0) 14.5 x10^3/uL (4.0-11.0) 12.5 x10^3/uL (4.0-11.0) Red Blood Count 4.42 x10^6/uL (4.30-5.70) 3.92 x10^6/uL (4.30-5.70) 3.69 x10^6/uL (4.30-5.70) Hemoglobin 15.0 g/dL (13.0-17.5) 13.3 g/dL (13.0-17.5) 12.4 g/dL (13.0-17.5) Hematocrit 42.9 % (39.0-53.0) 38.5 % (39.0-53.0) 36.6 % (39.0-53.0) Mean Corpuscular Volume 97 fL (79-100) 98 fL (79-100) 99 fL (79-100) Mean Corpuscular Hemoglobin 34 pg (25-35) 34 pg (25-35) 34 pg (25-35) Mean Corpuscular Hemoglobin Concent 35 g/dL (31-37) 35 g/dL (31-37) 34 g/dL (31-37) Red Cell Distribution Width 12.8 % (11.5-14.5) 12.8 % (11.5-14.5) 13.1 % (11.5-14.5) Platelet Count 218 x10^3/uL (140-400) 189 x10^3/uL (140-400) 183 x10^3/uL (140-400) Neutrophils (%) (Auto) 87 % (31-73) 83 % (31-73) 82 % (31-73) Lymphocytes (%) (Auto) 5 % (24-48) 7 % (24-48) 7 % (24-48) Monocytes (%) (Auto) 7 % (0-9) 9 % (0-9) 9 % (0-9) Eosinophils (%) (Auto) 0 % (0-3) 0 % (0-3) 0 % (0-3) Basophils (%) (Auto) 1 % (0-3) 1 % (0-3) 1 % (0-3) Neutrophils # (Auto) 15.2 x10^3/uL (1.8-7.7) 12.0 x10^3/uL (1.8-7.7) 10.2 x10^3/uL (1.8-7.7) Lymphocytes # (Auto) 0.8 x10^3/uL (1.0-4.8) 1.0 x10^3/uL (1.0-4.8) 0.9 x10^3/uL (1.0-4.8) Monocytes # (Auto) 1.3 x10^3/uL (0.0-1.1) 1.3 x10^3/uL (0.0-1.1) 1.1 x10^3/uL (0.0-1.1) Eosinophils # (Auto) 0.0 x10^3/uL (0.0-0.7) 0.0 x10^3/uL (0.0-0.7) 0.0 x10^3/uL (0.0-0.7) Basophils # (Auto) 0.1 x10^3/uL (0.0-0.2) 0.1 x10^3/uL (0.0-0.2) 0.2 x10^3/uL (0.0-0.2) Segmented Neutrophils % 85 % (35-66) Band Neutrophils % 7 % (0-9) Lymphocytes % 3 % (24-48) Atypical Lymphocytes % (Manual) 1 % (0-0) Monocytes % 3 % (0-10) Basophils % 1 % (0-3) Platelet Estimate Adequate (ADEQUATE) Sodium Level 134 mmol/L (136-145) 136 mmol/L (136-145) Potassium Level 3.8 mmol/L (3.5-5.1) 3.6 mmol/L (3.5-5.1) Chloride Level 98 mmol/L (98-107) 102 mmol/L (98-107) Carbon Dioxide Level 27 mmol/L (21-32) 23 mmol/L (21-32) Anion Gap 9 (6-14) 11 (6-14) Blood Urea Nitrogen 32 mg/dL (8-26) 34 mg/dL (8-26) Creatinine 1.0 mg/dL (0.7-1.3) 1.0 mg/dL (0.7-1.3) Estimated GFR (Cockcroft-Gault) 73.5 73.5 BUN/Creatinine Ratio 32 (6-20) 34 (6-20) Glucose Level 102 mg/dL (70-99) 139 mg/dL (70-99) Calcium Level 9.6 mg/dL (8.5-10.1) 8.8 mg/dL (8.5-10.1) Phosphorus Level 3.0 mg/dL (2.6-4.7) Magnesium Level 1.8 mg/dL (1.8-2.4) Total Bilirubin 1.5 mg/dL (0.2-1.0) 1.0 mg/dL (0.2-1.0) Aspartate Amino Transf (AST/SGOT) 151 U/L (15-37) 130 U/L (15-37) Alanine Aminotransferase (ALT/SGPT) 49 U/L (16-63) 50 U/L (16-63) Alkaline Phosphatase 62 U/L (46-116) 50 U/L (46-116) Creatine Kinase 4350 U/L (39-308) 3367 U/L (39-308) Troponin I Quantitative 0.082 ng/mL (0.000-0.055) 0.068 ng/mL (0.000-0.055) UT-Isb-V-Type Natriuretic Peptide 1488 pg/mL (0-124) Total Protein 7.5 g/dL (6.4-8.2) 6.4 g/dL (6.4-8.2) Albumin 3.5 g/dL (3.4-5.0) 2.9 g/dL (3.4-5.0) Albumin/Globulin Ratio 0.9 (1.0-1.7) 0.8 (1.0-1.7) Ethyl Alcohol Level < 10 mg/dL (0-10) Urine Collection Type U cath Urine Color [place] Urine Clarity Clear Urine pH 5.5 (<5.0-8.0) Urine Specific [place] 1.025 (1.000-1.030) Urine Protein Negative mg/dL (NEG-TRACE) Urine Glucose (UA) Negative mg/dL (NEG) Urine Ketones (Stick) 15 mg/dL (NEG) Urine Blood Negative (NEG) Urine Nitrite Negative (NEG) Urine Bilirubin Negative (NEG) Urine Urobilinogen Dipstick 0.2 mg/dL (0.2 mg/dL) Urine Leukocyte Esterase Negative (NEG) Urine RBC 0 /HPF (0-2) Urine WBC 0 /HPF (0-4) Urine Squamous Epithelial Cells Few /LPF Urine Amorphous Sediment Present /HPF Urine Bacteria 0 /HPF (0-FEW) Urine Hyaline Casts Few /HPF Urine Mucus Slight /LPF Urine Opiates Screen Neg (NEG) Urine Methadone Screen Neg (NEG) Urine Barbiturates Neg (NEG) Urine Phencyclidine Screen Neg (NEG) Urine Amphetamine/Methamphetamine Neg (NEG) Urine Benzodiazepines Screen Neg (NEG) Urine Cocaine Screen Neg (NEG) Urine Cannabinoids Screen Pos (NEG) Urine Ethyl Alcohol Neg (NEG) Thyroid Stimulating Hormone (TSH) 1.361 uIU/mL (0.358-3.74) Medications Current Medications Neomycin/ Polymyxin/ Bacitracin (Triple Antibiotic Ointment) 1 pkt 1X ONCE TP Last administered on 09/13/20at 17:16; Start 09/13/20 at 17:15; Stop 09/13/20 at 17:16; Status DC Lidocaine HCl (Lidocaine 1% 20ml Vial) 20 ml 1X ONCE INJ Last administered on 09/13/20at 17:16; Start 09/13/20 at 17:15; Stop 09/13/20 at 17:16; Status DC Diphtheria/ Tetanus/Acell Pertussis (ADACEL TDap SYRINGE) 0.5 ml ONCE ONCE VAX IM Last administered on 09/13/20at 17:19; Start 09/13/20 at 17:30; Stop 09/13/20 at 17:31; Status DC Sodium Chloride 1,000 ml @ 1,000 mls/hr 1X ONCE IV Last administered on 09/13/20at 18:43; Start 09/13/20 at 18:15; Stop 09/13/20 at 19:14; Status DC Ceftriaxone Sodium (Rocephin) 1 gm 1X ONCE IVP Last administered on 09/13/20at 18:43; Start 09/13/20 at 18:30; Stop 09/13/20 at 18:31; Status DC Morphine Sulfate (Morphine Sulfate) 2 mg PRN Q2HR PRN IV PAIN; Start 09/13/20 at 18:45; Stop 09/14/20 at 18:44 Sodium Chloride 1,000 ml @ 200 mls/hr Q5H IV Last administered on 09/14/20at 09:01; Start 09/13/20 at 18:45; Stop 09/14/20 at 18:44 Acetaminophen (Tylenol) 650 mg PRN Q4HRS PRN PO FEVER > 100.3'F; Start 09/13/20 at 18:45; Stop 09/13/20 at 22:08; Status DC Folic Acid (Folic Acid) 1 mg DAILY PO Last administered on 09/14/20at 09:01; Start 09/14/20 at 09:00 Thiamine Mononitrate (Vitamin B-1) 300 mg DAILY PO Last administered on 09/14/20at 09:01; Start 09/14/20 at 09:00 Lorazepam (Ativan) 4 mg PRN Q1HR PRN PO For CIWA 8-14; Start 09/13/20 at 22:15 Lorazepam (Ativan) 8 mg PRN Q1HR PRN PO For CIWA 15 or greater; Start 09/13/20 at 22:15 Haloperidol Lactate (Haldol Inj) 5 mg PRN Q4HRS PRN IVP Hallucinatns,Confusn,Delirium; Start 09/13/20 at 22:15 Clonidine HCl (Catapres) 0.1 mg PRN Q1HR PRN PO SBP > 180 or DBP > 100, MRX3; Start 09/13/20 at 22:15 Sennosides (Senna) 17.2 mg PRN BID PRN PO CONSTIPATION 1ST CHOICE; Start 09/13/20 at 22:15 Docusate Sodium (Colace) 100 mg PRN DAILY PRN PO HARD STOOLS; Start 09/13/20 at 22:15 Ondansetron HCl (Zofran) 4 mg PRN Q6HRS PRN IVP NAUSEA/VOMITING 1ST CHOICE; Start 09/13/20 at 22:15 Dextrose (Dextrose 50%-Water Syringe) 12.5 gm PRN Q15MIN PRN IV SEE COMMENTS; Start 09/13/20 at 22:15 Acetaminophen (Tylenol) 650 mg PRN Q4HRS PRN PO TEMP OVER 100.4F OR MILD PAIN; Start 09/13/20 at 22:15 Enoxaparin Sodium (Lovenox 40mg Syringe) 40 mg Q24H SQ Last administered on 09/13/20at 22:33; Start 09/13/20 at 23:00 Influenza Virus Vaccine Quadrival (Fluzone Quad Syringe) 0.5 ml ONCE ONCE VAX IM ; Start 09/14/20 at 09:00; Stop 09/14/20 at 09:01; Status DC Active Scripts Active Zofran (Ondansetron Hcl) 4 Mg Tablet 1 Tab PO PRN Q6HRS PRN 30 Days Restoril (Temazepam) 7.5 Mg Capsule 7.5 Mg PO PRN QHS PRN 6 Days Fluoxetine Hcl 20 Mg Capsule 20 Mg PO DAILY 30 Days Tylenol (Acetaminophen) 325 Mg Tablet 650 Mg PO PRN Q6HRS PRN 30 Days Aspirin 325 Mg Tablet 325 Mg PO [id number] 30 Days Atorvastatin Calcium 10 Mg Tablet 10 Mg PO QHS 30 Days Vitals/I & O Vital Sign - Last 24 Hours 09/13/20 09/13/20 09/13/20 09/13/20 16:41 17:00 17:15 17:30 Temp 97.8 97.8 Pulse 88 84 81 85 Resp 20 16 14 14 B/P (MAP) 111/61 (78) Pulse Ox 97 100 99 99 O2 Delivery Room Air 09/13/20 09/13/20 09/13/20 09/13/20 17:45 18:00 18:15 18:30 Pulse 85 87 88 84 Resp 14 16 14 16 Pulse Ox 99 99 98 99 09/13/20 09/13/20 09/13/20 09/13/20 18:45 19:32 19:47 20:02 Pulse 82 76 81 88 Resp 16 16 16 16 Pulse Ox 98 98 98 96 09/13/20 09/13/20 09/13/20 09/13/20 20:17 20:32 21:19 22:45 Temp 98.7 98.7 Pulse 81 82 86 Resp 16 16 20 B/P (MAP) 141/64 (89) Pulse Ox 97 97 99 O2 Delivery Room Air Room Air 09/13/20 09/14/20 09/14/20 23:00 03:08 07:00 Temp 97.9 98.6 99.0 97.9 98.6 99.0 Pulse 99 85 71 Resp 20 18 18 B/P (MAP) 106/51 (69) 105/58 (74) 114/55 (74) Pulse Ox 96 98 98 O2 Delivery Room Air Room Air Room Air Intake and Output 09/13/20 09/13/20 09/14/20 15:00 23:00 07:00 Intake Total 1000 ml Output Total 300 ml Balance 1000 ml -300 ml Justicifation of Admission Dx: Justifications for Admission: Justification of Admission Dx: Yes Altered Mental Status: Altered Mental Status KRYSTINA COKER MD Sep 14, 2020 09:45
--- NOTE | 2020-09-14 12:36 | NUR ---
LIZETTE following for discharge planning. Spoke with RN and reviewed chart. Pt from home with son. Pt confused. PT recommendation is SNU. Pt on room air. LIZETTE LVM for son for discharge planning. LIZETTE following. Addendum: 09/14/20 at 1655 by RICKY BAUER Pt's son Gonzalez ([phone]) returned call to this SW. Pt's son requesting SNU to LTC referrals to [facility] and [facility]. Pt choice of vendor form completed. Referrals faxed. LIZETTE requested COVID swab for possible placement.
--- NOTE | 2020-09-14 15:23 | CARD ---
MR#: [id number] Date of Study: 09/14/2020 Ordering Physician: RONNIE RODRIGUEZ, Referring Physician: RONNIE RODRIGUEZ, Tech: Alejandra Foote [facility] APPROVED REPORT EXAM: Two-dimensional and M-mode echocardiogram with Doppler and color Doppler. Other Information Quality : AverageHR: 67bpm Rhythm : NSR INDICATION Dyspnea 2D DIMENSIONS RVDd2.7 (2.9-3.5cm)Left Atrium(2D)2.7 (1.6-4.0cm) IVSd0.9 (0.7-1.1cm)Aortic Root(2D)3.6 (2.0-3.7cm) LVDd3.9 (3.9-5.9cm)LVOT Diameter2.0 (1.8-2.4cm) PWd1.0 (0.7-1.1cm)LVDs2.3 (2.5-4.0cm) FS (%) 41.0 %SV48.1 ml LVEF(%)72.5 (>50%) Aortic Valve AoV Peak Donald.125.1cm/sAoV VTI29.7cm AO Peak GR.6.3mmHgLVOT Peak Donald.119.9cm/s AO Mean GR.3mmHgAVA (VMAX)3.15cm2 Mitral Valve MV E Rtelausv15.8cm/sMV DECEL [id number] MV A Kmefpjel834.4cm/sE/A Ratio0.8 Pulmonary Valve PV Peak Vtsuwdmc59.7cm/s Tricuspid Valve TR P. Thmtayky220uq/sTR Peak Gr.29mmHg LEFT VENTRICLE The left ventricle is normal size. There is normal left ventricular wall thickness. The left ventricu lar systolic function is normal and the ejection fraction is within normal range. Estimated ejection fraction 60-65%. There is normal LV segmental wall motion. Transmitral Doppler flow pattern is Grade I-abnormal relaxation pattern. RIGHT VENTRICLE The right ventricle is normal size. The right ventricle is borderline hypertrophied. The right ventri cular systolic function is normal. ATRIA The left atrium size is normal. The right atrium size is normal. The interatrial septum is intact wit h no evidence for an atrial septal defect or patent foramen ovale as noted on 2-D or Doppler imaging. AORTIC VALVE The aortic valve is normal in structure and function. Doppler and Color Flow revealed no significant aortic regurgitation. There is no significant aortic valvular stenosis. MITRAL VALVE The mitral valve is normal in structure and function. There is no evidence of mitral valve prolapse. There is no mitral valve stenosis. Doppler and Color-flow revealed mild mitral regurgitation. TRICUSPID VALVE The tricuspid valve is normal in structure and function. Doppler and Color Flow revealed trace tricus pid regurgitation. Estimated PAP 33 mmHg. There is no tricuspid valve stenosis. PULMONIC VALVE The pulmonary valve is normal in structure and function. Doppler and Color Flow revealed no pulmonic valvular regurgitation. There is no pulmonic valvular stenosis. GREAT VESSELS The aortic root is normal in size. The ascending aorta is normal in size. The IVC is normal in size a nd collapses >50% with inspiration. PERICARDIAL EFFUSION There is no evidence of significant pericardial effusion. Critical Notification Critical Value: No <Conclusion> The left ventricular systolic function is normal and the ejection fraction is within normal range. E stimated ejection fraction 60-65%. There is normal LV segmental wall motion. Technically difficult images Signed by : Adelfo Ng, Electronically Approved : 09/14/2020 15:23:11
--- NOTE | 2020-09-14 15:27 | NUR ---
Wound/Ostomy Care Wound Type/Assessment: consult for coccyx and left foot wounds. Pt has multiple lacerations to left foot that are approximated with sutures. Coccyx has an abrasion with blisters, pt states it is from his fall. Treatment Recommendations/Plan: Cleanse wounds, apply xeroform, ABD and kerlix to left foot. Change every other day. Dressed coccyx with honey alginate and foam, change every 3 days Education provided: PU prevention, wound care protocol Offloading surface/device: wheelchair cushion ordered Recommended Referrals/Tests: na Discharge Recommendations for dressings: see above
[2020-09-14] MEDS: ENOXAPARIN 40 MG/0.4 ML SYRINGE. SQ SCH ×2 (22:58→23:00)
[2020-09-15] MEDS: IV NORMAL SALINE 1000ML BAG 1,000 ML IV SCH ×5 (00:07→20:15)
[2020-09-15 03:00] VITALS: BP 118/73
[2020-09-15 07:00] VITALS: BP 108/58
[2020-09-15] MEDS: FOLIC ACID 1 MG TABLET. PO SCH (09:17)
--- NOTE | 2020-09-15 10:44 | NUR ---
LIZETTE following for discharge planning. Spoke with RN and reviewed chart. Spoke with Evelyn who is reviewing referral for possible admission to [facility]. LIZETTE LVM for Massimo with [facility] to check on status of referral. LIZETTE also sent referral to Cheikh at [facility]. COVID result remains pending. LIZETTE following. Addendum: 09/15/20 at 1204 by RICKY BAUER [facility] accepted this pt clinically and submitted for insurance authorization. Massimo with [facility] stated facility full but Marty from [facility] is reviewing. Spoke with Molly at the [facility] and pt is not service connected. Pt has been to the [facility] in the past but they don't take admissions from community providers. Addendum: 09/15/20 at 1329 by RICKY BAUER LVM for son to update.
[2020-09-15 11:00] VITALS: BP 103/54
--- NOTE | 2020-09-15 11:12 | PDOC ---
PROGRESS NOTES Date of Service: DATE: 09/15/20 TIME: 11:11 Chief Complaint Chief Complaint Acute encephalopathy NOS Syncope Reactive leukocytosis Elevated creatinine due to rhabdomyolysis Elevated troponins likely due to demand ischemia Hyponatremia Prerenal azotemia Positive for cannabinoid use History of alcohol use Pulmonology also seen on chest x-ray, recommend outpatient CT scan evaluation upon discharge Plan: Recheck CK in the a.m. Continue NS at 200 cc/h Strict I's and O's and manage urine output closely to attempt to maintain urine output of about 100-200 cc/h Normal TSH Vitamin B12 marginally normal CIWA protocol Dementia prevention protocol Encourage early and frequent mobilization PT OT IV Haldol as needed for agitation, consider sitter as needed if non-redirectable agitation Avoid physical restraints, catheters or tubes, and benzodiazepines Nutrition consult if there is malnutrition or concern for vitamin deficiencies Start thiamine and folate supplementation Trend troponin Continue telemetry monitoring, consider cardiology consult if there are any telemetry events Pending TTE Lovenox for DVT prophylaxis Protonix GI prophylaxis ADA diet Full code Discussed with RN and SW Dispo inpatient management as above hopefully discharge within the next 24 to 48 hours DPOA is the son History of Present Illness History of Present Illness History and Physical Date of Service: DOS: DATE: 09/13/20 TIME: 22:06 Chief Complaint: Chief Complain: Found unresponsive History of Present Illness: HPI: History obtained from ED physician and chart review. Patient is a 70-year-old male with history of CVA in 2019 and dementia and alcohol use was brought to the ED by EMS after son called 911 and found patient on the floor and soiled in his clothing. Patient can only state that he was walking towards the bathroom and the next thing he remembered he was at the hospital. He knows that he drinks about a beer a day. Currently denies any fevers or chest pain or abdominal pain. 09/14: No acute events reported overnight, case discussed with nursing staff patient in no acute distress no complaints during my visit, patient certainly having some visual hallucinations during my encounter. Seems to drink more than 1 beer a day given his degree of cognitive impairment. We will continue to follow his neurological status throughout Vitals Vitals Vital Signs Date Time Temp Pulse Resp B/P (MAP) Pulse Ox O2 Delivery O2 Flow Rate FiO2 09/15/20 07:00 75 20 108/58 (75) 09/15/20 03:00 97.3 96 97.3 09/14/20 20:00 Room Air Physical Exam Physical Exam Gen.: well-developed well-nourished in no apparent distress Head: Normal shape atraumatic Eyes: Pupils equal reactive to light and accommodation, normal conjunctivae and lids Ears: Normal shape Nose: Normal shape no trauma Mouth: No exudates of the back of throat no thrush no lesions Neck: Supple no JVD no carotid bruit or lymphadenopathy no thyromegaly Chest: Lungs clear to auscultation with good inspiratory effort no crackles rales or rhonchi Cardiovascular: S1-S2 regular rhythm no murmurs gallops or rubs Abdomen: Bowel sounds present soft nontender no hepatosplenomegaly appreciated sign Extremities: No clubbing no cyanosis no edema peripheral pulses palpated bilaterally Neurological: Alert awake oriented in person, cranial nerves II through XII intact, no motor or sensory deficits appreciated Psych: cooperative Lungs: Clear Labs LABS Laboratory Tests Test 09/14/20 14:43 09/14/20 20:10 09/14/20 22:25 09/15/20 07:10 Creatine Kinase 2088 U/L (39-308) 1697 U/L (39-308) 1411 U/L (39-308) 997 U/L (39-308) Review of Systems Review of Systems Review of systems pertinent as per HPI otherwise 14 point review of system is negative Assessment and Plan Assessmemt and Plan Problems Medical Problems: (1) AMS (altered mental status) Status: Acute (2) Rhabdomyolysis Status: Acute Comment Review of Relevant I have reviewed the following items jessica (where applicable) has been applied. Labs Laboratory Tests Test 09/13/20 17:23 09/13/20 20:55 09/14/20 01:20 09/14/20 08:35 White Blood Count 17.5 x10^3/uL (4.0-11.0) 14.5 x10^3/uL (4.0-11.0) 12.5 x10^3/uL (4.0-11.0) Red Blood Count 4.42 x10^6/uL (4.30-5.70) 3.92 x10^6/uL (4.30-5.70) 3.69 x10^6/uL (4.30-5.70) Hemoglobin 15.0 g/dL (13.0-17.5) 13.3 g/dL (13.0-17.5) 12.4 g/dL (13.0-17.5) Hematocrit 42.9 % (39.0-53.0) 38.5 % (39.0-53.0) 36.6 % (39.0-53.0) Mean Corpuscular Volume 97 fL (79-100) 98 fL (79-100) 99 fL (79-100) Mean Corpuscular Hemoglobin 34 pg (25-35) 34 pg (25-35) 34 pg (25-35) Mean Corpuscular Hemoglobin Concent 35 g/dL (31-37) 35 g/dL (31-37) 34 g/dL (31-37) Red Cell Distribution Width 12.8 % (11.5-14.5) 12.8 % (11.5-14.5) 13.1 % (11.5-14.5) Platelet Count 218 x10^3/uL (140-400) 189 x10^3/uL (140-400) 183 x10^3/uL (140-400) Neutrophils (%) (Auto) 87 % (31-73) 83 % (31-73) 82 % (31-73) Lymphocytes (%) (Auto) 5 % (24-48) 7 % (24-48) 7 % (24-48) Monocytes (%) (Auto) 7 % (0-9) 9 % (0-9) 9 % (0-9) Eosinophils (%) (Auto) 0 % (0-3) 0 % (0-3) 0 % (0-3) Basophils (%) (Auto) 1 % (0-3) 1 % (0-3) 1 % (0-3) Neutrophils # (Auto) 15.2 x10^3/uL (1.8-7.7) 12.0 x10^3/uL (1.8-7.7) 10.2 x10^3/uL (1.8-7.7) Lymphocytes # (Auto) 0.8 x10^3/uL (1.0-4.8) 1.0 x10^3/uL (1.0-4.8) 0.9 x10^3/uL (1.0-4.8) Monocytes # (Auto) 1.3 x10^3/uL (0.0-1.1) 1.3 x10^3/uL (0.0-1.1) 1.1 x10^3/uL (0.0-1.1) Eosinophils # (Auto) 0.0 x10^3/uL (0.0-0.7) 0.0 x10^3/uL (0.0-0.7) 0.0 x10^3/uL (0.0-0.7) Basophils # (Auto) 0.1 x10^3/uL (0.0-0.2) 0.1 x10^3/uL (0.0-0.2) 0.2 x10^3/uL (0.0-0.2) Segmented Neutrophils % 85 % (35-66) Band Neutrophils % 7 % (0-9) Lymphocytes % 3 % (24-48) Atypical Lymphocytes % (Manual) 1 % (0-0) Monocytes % 3 % (0-10) Basophils % 1 % (0-3) Platelet Estimate Adequate (ADEQUATE) Sodium Level 134 mmol/L (136-145) 136 mmol/L (136-145) 138 mmol/L (136-145) Potassium Level 3.8 mmol/L (3.5-5.1) 3.6 mmol/L (3.5-5.1) 3.8 mmol/L (3.5-5.1) Chloride Level 98 mmol/L (98-107) 102 mmol/L (98-107) 105 mmol/L (98-107) Carbon Dioxide Level 27 mmol/L (21-32) 23 mmol/L (21-32) 26 mmol/L (21-32) Anion Gap 9 (6-14) 11 (6-14) 7 (6-14) Blood Urea Nitrogen 32 mg/dL (8-26) 34 mg/dL (8-26) 30 mg/dL (8-26) Creatinine 1.0 mg/dL (0.7-1.3) 1.0 mg/dL (0.7-1.3) 0.8 mg/dL (0.7-1.3) Estimated GFR (Cockcroft-Gault) 73.5 73.5 95.0 BUN/Creatinine Ratio 32 (6-20) 34 (6-20) Glucose Level 102 mg/dL (70-99) 139 mg/dL (70-99) 102 mg/dL (70-99) Calcium Level 9.6 mg/dL (8.5-10.1) 8.8 mg/dL (8.5-10.1) 8.6 mg/dL (8.5-10.1) Phosphorus Level 3.0 mg/dL (2.6-4.7) 2.3 mg/dL (2.6-4.7) Magnesium Level 1.8 mg/dL (1.8-2.4) 2.0 mg/dL (1.8-2.4) Total Bilirubin 1.5 mg/dL (0.2-1.0) 1.0 mg/dL (0.2-1.0) Aspartate Amino Transf (AST/SGOT) 151 U/L (15-37) 130 U/L (15-37) Alanine Aminotransferase (ALT/SGPT) 49 U/L (16-63) 50 U/L (16-63) Alkaline Phosphatase 62 U/L (46-116) 50 U/L (46-116) Creatine Kinase 4350 U/L (39-308) 3367 U/L (39-308) Troponin I Quantitative 0.082 ng/mL (0.000-0.055) 0.068 ng/mL (0.000-0.055) RC-Rhc-H-Type Natriuretic Peptide 1488 pg/mL (0-124) Total Protein 7.5 g/dL (6.4-8.2) 6.4 g/dL (6.4-8.2) Albumin 3.5 g/dL (3.4-5.0) 2.9 g/dL (3.4-5.0) Albumin/Globulin Ratio 0.9 (1.0-1.7) 0.8 (1.0-1.7) Ethyl Alcohol Level < 10 mg/dL (0-10) Urine Collection Type U cath Urine Color [place] Urine Clarity Clear Urine pH 5.5 (<5.0-8.0) Urine Specific [place] 1.025 (1.000-1.030) Urine Protein Negative mg/dL (NEG-TRACE) Urine Glucose (UA) Negative mg/dL (NEG) Urine Ketones (Stick) 15 mg/dL (NEG) Urine Blood Negative (NEG) Urine Nitrite Negative (NEG) Urine Bilirubin Negative (NEG) Urine Urobilinogen Dipstick 0.2 mg/dL (0.2 mg/dL) Urine Leukocyte Esterase Negative (NEG) Urine RBC 0 /HPF (0-2) Urine WBC 0 /HPF (0-4) Urine Squamous Epithelial Cells Few /LPF Urine Amorphous Sediment Present /HPF Urine Bacteria 0 /HPF (0-FEW) Urine Hyaline Casts Few /HPF Urine Mucus Slight /LPF Urine Opiates Screen Neg (NEG) Urine Methadone Screen Neg (NEG) Urine Barbiturates Neg (NEG) Urine Phencyclidine Screen Neg (NEG) Urine Amphetamine/Methamphetamine Neg (NEG) Urine Benzodiazepines Screen Neg (NEG) Urine Cocaine Screen Neg (NEG) Urine Cannabinoids Screen Pos (NEG) Urine Ethyl Alcohol Neg (NEG) Vitamin B12 Level 303 pg/mL (247-911) Thyroid Stimulating Hormone (TSH) 1.361 uIU/mL (0.358-3.74) Test 09/14/20 14:43 09/14/20 20:10 09/14/20 22:25 09/15/20 07:10 Creatine Kinase 2088 U/L (39-308) 1697 U/L (39-308) 1411 U/L (39-308) 997 U/L (39-308) Laboratory Tests Test 09/14/20 14:43 09/14/20 20:10 09/14/20 22:25 09/15/20 07:10 Creatine Kinase 2088 U/L (39-308) 1697 U/L (39-308) 1411 U/L (39-308) 997 U/L (39-308) Microbiology 09/13/20 Blood Culture - Preliminary, Resulted NO GROWTH AFTER 1 DAY Medications Current Medications Neomycin/ Polymyxin/ Bacitracin (Triple Antibiotic Ointment) 1 pkt 1X ONCE TP Last administered on 09/13/20at 17:16; Start 09/13/20 at 17:15; Stop 09/13/20 at 17:16; Status DC Lidocaine HCl (Lidocaine 1% 20ml Vial) 20 ml 1X ONCE INJ Last administered on 09/13/20at 17:16; Start 09/13/20 at 17:15; Stop 09/13/20 at 17:16; Status DC Diphtheria/ Tetanus/Acell Pertussis (ADACEL TDap SYRINGE) 0.5 ml ONCE ONCE VAX IM Last administered on 09/13/20at 17:19; Start 09/13/20 at 17:30; Stop 09/13/20 at 17:31; Status DC Sodium Chloride 1,000 ml @ 1,000 mls/hr 1X ONCE IV Last administered on 09/13/20at 18:43; Start 09/13/20 at 18:15; Stop 09/13/20 at 19:14; Status DC Ceftriaxone Sodium (Rocephin) 1 gm 1X ONCE IVP Last administered on 09/13/20at 18:43; Start 09/13/20 at 18:30; Stop 09/13/20 at 18:31; Status DC Morphine Sulfate (Morphine Sulfate) 2 mg PRN Q2HR PRN IV PAIN; Start 09/13/20 at 18:45; Stop 09/14/20 at 18:44; Status DC Sodium Chloride 1,000 ml @ 200 mls/hr Q5H IV Last administered on 09/14/20at 14:04; Start 09/13/20 at 18:45; Stop 09/14/20 at 18:44; Status DC Acetaminophen (Tylenol) 650 mg PRN Q4HRS PRN PO FEVER > 100.3'F; Start 09/13/20 at 18:45; Stop 09/13/20 at 22:08; Status DC Folic Acid (Folic Acid) 1 mg DAILY PO Last administered on 09/15/20at 09:17; Start 09/14/20 at 09:00 Thiamine Mononitrate (Vitamin B-1) 300 mg DAILY PO Last administered on 09/14/20at 09:01; Start 09/14/20 at 09:00 Lorazepam (Ativan) 4 mg PRN Q1HR PRN PO For CIWA 8-14; Start 09/13/20 at 22:15 Lorazepam (Ativan) 8 mg PRN Q1HR PRN PO For CIWA 15 or greater; Start 09/13/20 at 22:15 Haloperidol Lactate (Haldol Inj) 5 mg PRN Q4HRS PRN IVP Hallucinatns,Confusn,Delirium; Start 09/13/20 at 22:15 Clonidine HCl (Catapres) 0.1 mg PRN Q1HR PRN PO SBP > 180 or DBP > 100, MRX3; Start 09/13/20 at 22:15 Sennosides (Senna) 17.2 mg PRN BID PRN PO CONSTIPATION 1ST CHOICE; Start 09/13/20 at 22:15 Docusate Sodium (Colace) 100 mg PRN DAILY PRN PO HARD STOOLS; Start 09/13/20 at 22:15 Ondansetron HCl (Zofran) 4 mg PRN Q6HRS PRN IVP NAUSEA/VOMITING 1ST CHOICE; Start 09/13/20 at 22:15 Dextrose (Dextrose 50%-Water Syringe) 12.5 gm PRN Q15MIN PRN IV SEE COMMENTS; Start 09/13/20 at 22:15 Acetaminophen (Tylenol) 650 mg PRN Q4HRS PRN PO TEMP OVER 100.4F OR MILD PAIN; Start 09/13/20 at 22:15 Enoxaparin Sodium (Lovenox 40mg Syringe) 40 mg Q24H SQ Last administered on 09/13/20at 22:33; Start 09/13/20 at 23:00 Influenza Virus Vaccine Quadrival (Fluzone Quad Syringe) 0.5 ml ONCE ONCE VAX IM ; Start 09/14/20 at 09:00; Stop 09/14/20 at 09:01; Status DC Sodium Chloride 1,000 ml @ 200 mls/hr Q5H IV Last administered on 09/15/20at 04:49; Start 09/14/20 at 19:15 Active Scripts Active Zofran (Ondansetron Hcl) 4 Mg Tablet 1 Tab PO PRN Q6HRS PRN 30 Days Restoril (Temazepam) 7.5 Mg Capsule 7.5 Mg PO PRN QHS PRN 6 Days Fluoxetine Hcl 20 Mg Capsule 20 Mg PO DAILY 30 Days Tylenol (Acetaminophen) 325 Mg Tablet 650 Mg PO PRN Q6HRS PRN 30 Days Aspirin 325 Mg Tablet 325 Mg PO [id number] 30 Days Atorvastatin Calcium 10 Mg Tablet 10 Mg PO QHS 30 Days Vitals/I & O Vital Sign - Last 24 Hours 09/14/20 09/14/20 09/14/20 09/14/20 14:50 19:00 20:00 21:48 Temp 99.8 98.6 99.8 98.6 Pulse 71 74 65 Resp 18 20 B/P (MAP) 106/54 (71) 87/36 (53) 119/57 (77) Pulse Ox 97 98 O2 Delivery Room Air Room Air 09/14/20 09/15/20 09/15/20 23:00 03:00 07:00 Temp 97.8 97.3 97.8 97.3 Pulse 71 68 75 Resp 18 16 20 B/P (MAP) 121/61 (81) 118/73 (88) 108/58 (75) Pulse Ox 97 96 Intake and Output 09/14/20 09/14/20 09/15/20 15:00 23:00 07:00 Intake Total 420 ml 300 ml 0 ml Output Total 425 ml 200 ml Balance 420 ml -125 ml -200 ml Nutrition Consultation Dietary Evaluation: Recommendations by RD: Dietary education by RD, Increase Calorie Intake, Protein supplementation Comments: REC continue regular diet honor food preferences and offer snacks and supplements from unit prn REC mvi at d/c Expected Outcomes/Goals: to meet >75% est nutr needs Malnutrition Findings: Body Fat Depletion (Non Severe: Mod to Severe Weight Status: Underweight Justicifation of Admission Dx: Justifications for Admission: Justification of Admission Dx: Yes Altered Mental Status: Altered Mental Status KRYSTINA COKER MD Sep 15, 2020 11:12
[2020-09-15] MEDS: THIAMINE 100 MG TABLET. PO SCH (12:03)
[2020-09-15 15:00] VITALS: BP 97/50
[2020-09-15 19:00] VITALS: BP 122/53
[2020-09-15 23:00] VITALS: BP 112/58
[2020-09-15] MEDS: ENOXAPARIN 40 MG/0.4 ML SYRINGE. SQ SCH (23:00)
--- NOTE | 2020-09-15 23:29 | NUR ---
Pt had been wanting to go home. Pt had been refusing his meds/fluids. Pt claimed he had been stuck many times already.
[2020-09-16] MEDS: IV NORMAL SALINE 1000ML BAG 1,000 ML IV SCH ×4 (01:15→11:29)
--- NOTE | 2020-09-16 07:35 | PDOC ---
PROGRESS NOTES Date of Service: DATE: 09/16/20 TIME: 07:33 Chief Complaint Chief Complaint Acute encephalopathy NOS Syncope Reactive leukocytosis Elevated creatinine due to rhabdomyolysis Elevated troponins likely due to demand ischemia Hyponatremia Prerenal azotemia Positive for cannabinoid use History of alcohol use Pulmonology also seen on chest x-ray, recommend outpatient CT scan evaluation upon discharge Plan: Recheck CK in the a.m. Continue NS at 200 cc/h Strict I's and O's and manage urine output closely to attempt to maintain urine output of about 100-200 cc/h Normal TSH Vitamin B12 marginally normal CIWA protocol Dementia prevention protocol Encourage early and frequent mobilization PT OT IV Haldol as needed for agitation, consider sitter as needed if non-redirectable agitation Avoid physical restraints, catheters or tubes, and benzodiazepines Nutrition consult if there is malnutrition or concern for vitamin deficiencies Start thiamine and folate supplementation Trend troponin Continue telemetry monitoring, consider cardiology consult if there are any telemetry events Pending TTE Lovenox for DVT prophylaxis Protonix GI prophylaxis ADA diet Full code Discussed with RN and SW Dispo inpatient management as above hopefully discharge within the next 24 to 48 hours DPOA is the son History of Present Illness History of Present Illness History and Physical Date of Service: DOS: DATE: 09/13/20 TIME: 22:06 Chief Complaint: Chief Complain: Found unresponsive History of Present Illness: HPI: History obtained from ED physician and chart review. Patient is a 70-year-old male with history of CVA in 2019 and dementia and alcohol use was brought to the ED by EMS after son called 911 and found patient on the floor and soiled in his clothing. Patient can only state that he was walking towards the bathroom and the next thing he remembered he was at the hospital. He knows that he drinks about a beer a day. Currently denies any fevers or chest pain or abdominal pain. 2: No acute events reported overnight, case discussed with nursing staff patient in no acute distress no complaints during my visit, patient certainly having some visual hallucinations during my encounter. Seems to drink more than 1 beer a day given his degree of cognitive impairment. We will continue to follow his neurological status throughout 22: Much better compared to admission he is oriented in person time place and situation now 3: Patient resting comfortably in bed no acute events reported overnight. We are waiting for case management to update us regarding disposition. Patient is medically stable and ready for discharge Vitals Vitals Vital Signs Date Time Temp Pulse Resp B/P (MAP) Pulse Ox O2 Delivery O2 Flow Rate FiO2 09/15/20 23:00 98.2 61 18 112/58 (76) 99 Room Air 98.2 Physical Exam Physical Exam Gen.: well-developed well-nourished in no apparent distress Head: Normal shape atraumatic Eyes: Pupils equal reactive to light and accommodation, normal conjunctivae and lids Ears: Normal shape Nose: Normal shape no trauma Mouth: No exudates of the back of throat no thrush no lesions Neck: Supple no JVD no carotid bruit or lymphadenopathy no thyromegaly Chest: Lungs clear to auscultation with good inspiratory effort no crackles rales or rhonchi Cardiovascular: S1-S2 regular rhythm no murmurs gallops or rubs Abdomen: Bowel sounds present soft nontender no hepatosplenomegaly appreciated sign Extremities: No clubbing no cyanosis no edema peripheral pulses palpated bilaterally Neurological: Alert awake oriented in person, cranial nerves II through XII intact, no motor or sensory deficits appreciated Psych: cooperative Lungs: Clear Assessment and Plan Assessmemt and Plan Problems Medical Problems: (1) AMS (altered mental status) Status: Acute (2) Rhabdomyolysis Status: Acute Comment Review of Relevant I have reviewed the following items jessica (where applicable) has been applied. Labs Laboratory Tests Test 09/14/20 08:35 09/14/20 14:43 09/14/20 18:30 09/14/20 20:10 White Blood Count 12.5 x10^3/uL (4.0-11.0) Red Blood Count 3.69 x10^6/uL (4.30-5.70) Hemoglobin 12.4 g/dL (13.0-17.5) Hematocrit 36.6 % (39.0-53.0) Mean Corpuscular Volume 99 fL (79-100) Mean Corpuscular Hemoglobin 34 pg (25-35) Mean Corpuscular Hemoglobin Concent 34 g/dL (31-37) Red Cell Distribution Width 13.1 % (11.5-14.5) Platelet Count 183 x10^3/uL (140-400) Neutrophils (%) (Auto) 82 % (31-73) Lymphocytes (%) (Auto) 7 % (24-48) Monocytes (%) (Auto) 9 % (0-9) Eosinophils (%) (Auto) 0 % (0-3) Basophils (%) (Auto) 1 % (0-3) Neutrophils # (Auto) 10.2 x10^3/uL (1.8-7.7) Lymphocytes # (Auto) 0.9 x10^3/uL (1.0-4.8) Monocytes # (Auto) 1.1 x10^3/uL (0.0-1.1) Eosinophils # (Auto) 0.0 x10^3/uL (0.0-0.7) Basophils # (Auto) 0.2 x10^3/uL (0.0-0.2) Sodium Level 138 mmol/L (136-145) Potassium Level 3.8 mmol/L (3.5-5.1) Chloride Level 105 mmol/L (98-107) Carbon Dioxide Level 26 mmol/L (21-32) Anion Gap 7 (6-14) Blood Urea Nitrogen 30 mg/dL (8-26) Creatinine 0.8 mg/dL (0.7-1.3) Estimated GFR (Cockcroft-Gault) 95.0 Glucose Level 102 mg/dL (70-99) Calcium Level 8.6 mg/dL (8.5-10.1) Phosphorus Level 2.3 mg/dL (2.6-4.7) Magnesium Level 2.0 mg/dL (1.8-2.4) Creatine Kinase 2088 U/L (39-308) 1697 U/L (39-308) Coronavirus (PCR) Not detected (Not Detected) Test 09/14/20 22:25 09/15/20 07:10 Creatine Kinase 1411 U/L (39-308) 997 U/L (39-308) Microbiology 09/13/20 Blood Culture - Preliminary, Resulted NO GROWTH AFTER 2 DAYS Medications Current Medications Neomycin/ Polymyxin/ Bacitracin (Triple Antibiotic Ointment) 1 pkt 1X ONCE TP Last administered on 09/13/20at 17:16; Start 09/13/20 at 17:15; Stop 09/13/20 at 17:16; Status DC Lidocaine HCl (Lidocaine 1% 20ml Vial) 20 ml 1X ONCE INJ Last administered on 09/13/20at 17:16; Start 09/13/20 at 17:15; Stop 09/13/20 at 17:16; Status DC Diphtheria/ Tetanus/Acell Pertussis (ADACEL TDap SYRINGE) 0.5 ml ONCE ONCE VAX IM Last administered on 09/13/20at 17:19; Start 09/13/20 at 17:30; Stop 09/13/20 at 17:31; Status DC Sodium Chloride 1,000 ml @ 1,000 mls/hr 1X ONCE IV Last administered on 09/13/20at 18:43; Start 09/13/20 at 18:15; Stop 09/13/20 at 19:14; Status DC Ceftriaxone Sodium (Rocephin) 1 gm 1X ONCE IVP Last administered on 09/13/20at 18:43; Start 09/13/20 at 18:30; Stop 09/13/20 at 18:31; Status DC Morphine Sulfate (Morphine Sulfate) 2 mg PRN Q2HR PRN IV PAIN; Start 09/13/20 at 18:45; Stop 09/14/20 at 18:44; Status DC Sodium Chloride 1,000 ml @ 200 mls/hr Q5H IV Last administered on 09/14/20at 14:04; Start 09/13/20 at 18:45; Stop 09/14/20 at 18:44; Status DC Acetaminophen (Tylenol) 650 mg PRN Q4HRS PRN PO FEVER > 100.3'F; Start 09/13/20 at 18:45; Stop 09/13/20 at 22:08; Status DC Folic Acid (Folic Acid) 1 mg DAILY PO Last administered on 09/15/20at 09:17; Start 09/14/20 at 09:00 Thiamine Mononitrate (Vitamin B-1) 300 mg DAILY PO Last administered on 09/14/20at 09:01; Start 09/14/20 at 09:00 Lorazepam (Ativan) 4 mg PRN Q1HR PRN PO For CIWA 8-14; Start 09/13/20 at 22:15 Lorazepam (Ativan) 8 mg PRN Q1HR PRN PO For CIWA 15 or greater; Start 09/13/20 at 22:15 Haloperidol Lactate (Haldol Inj) 5 mg PRN Q4HRS PRN IVP Hallucinatns,Confusn,Delirium; Start 09/13/20 at 22:15 Clonidine HCl (Catapres) 0.1 mg PRN Q1HR PRN PO SBP > 180 or DBP > 100, MRX3; Start 09/13/20 at 22:15 Sennosides (Senna) 17.2 mg PRN BID PRN PO CONSTIPATION 1ST CHOICE; Start 09/13/20 at 22:15 Docusate Sodium (Colace) 100 mg PRN DAILY PRN PO HARD STOOLS; Start 09/13/20 at 22:15 Ondansetron HCl (Zofran) 4 mg PRN Q6HRS PRN IVP NAUSEA/VOMITING 1ST CHOICE; Start 09/13/20 at 22:15 Dextrose (Dextrose 50%-Water Syringe) 12.5 gm PRN Q15MIN PRN IV SEE COMMENTS; Start 09/13/20 at 22:15 Acetaminophen (Tylenol) 650 mg PRN Q4HRS PRN PO TEMP OVER 100.4F OR MILD PAIN; Start 09/13/20 at 22:15 Enoxaparin Sodium (Lovenox 40mg Syringe) 40 mg Q24H SQ Last administered on 09/13/20at 22:33; Start 09/13/20 at 23:00 Influenza Virus Vaccine Quadrival (Fluzone Quad Syringe) 0.5 ml ONCE ONCE VAX IM ; Start 09/14/20 at 09:00; Stop 09/14/20 at 09:01; Status DC Sodium Chloride 1,000 ml @ 200 mls/hr Q5H IV Last administered on 09/15/20at 0 4:49; Start 09/14/20 at 19:15 Active Scripts Active Zofran (Ondansetron Hcl) 4 Mg Tablet 1 Tab PO PRN Q6HRS PRN 30 Days Restoril (Temazepam) 7.5 Mg Capsule 7.5 Mg PO PRN QHS PRN 6 Days Fluoxetine Hcl 20 Mg Capsule 20 Mg PO DAILY 30 Days Tylenol (Acetaminophen) 325 Mg Tablet 650 Mg PO PRN Q6HRS PRN 30 Days Aspirin 325 Mg Tablet 325 Mg PO DAILYWBKFT 30 Days Atorvastatin Calcium 10 Mg Tablet 10 Mg PO QHS 30 Days Vitals/I & O Vital Sign - Last 24 Hours 09/15/20 09/15/20 09/15/20 09/15/20 08:10 11:00 15:00 19:00 Temp 97.7 98.1 98.1 97.7 98.1 98.1 Pulse 64 61 73 Resp 18 18 20 B/P (MAP) 103/54 (70) 97/50 (66) 122/53 (76) Pulse Ox 95 97 O2 Delivery Room Air Room Air 09/15/20 09/15/20 20:00 23:00 Temp 98.2 98.2 Pulse 61 Resp 18 B/P (MAP) 112/58 (76) Pulse Ox 99 O2 Delivery Room Air Room Air Intake and Output 09/15/20 09/15/20 09/16/20 15:00 23:00 07:00 Intake Total 360 ml Output Total 0 ml Balance 360 ml 0 ml Nutrition Consultation Dietary Evaluation: Recommendations by RD: Dietary education by RD, Increase Calorie Intake, Protein supplementation Comments: REC continue regular diet honor food preferences and offer snacks and supplements from unit prn REC mvi at d/c Expected Outcomes/Goals: to meet >75% est nutr needs Malnutrition Findings: Body Fat Depletion (Non Severe: Mod to Severe Weight Status: Underweight Justicifation of Admission Dx: Justifications for Admission: Justification of Admission Dx: Yes Altered Mental Status: Altered Mental Status KRYSTINA COKER MD Sep 16, 2020 07:35
[2020-09-16] MEDS: FOLIC ACID 1 MG TABLET. PO SCH (08:17)
[2020-09-16] MEDS: THIAMINE 100 MG TABLET. PO SCH (08:17)
--- NOTE | 2020-09-16 12:04 | NUR ---
SW following for discharge planning. Spoke with RN and reviewed chart. Message from son stating preference is [facility]. Insurance authorization approved per Fabiola. SW requested discharge orders form Dr. Stovall. Transportation arranged for 1430. RN to call report. Clinicals ready to be sent with pt. Son notified. SW following. Addendum: 09/16/20 at 1233 by RICKY BAUER Discharge orders faxed. Pt notified. No further SW needs at this time.
--- NOTE | 2020-09-16 12:26 | SNU/HH DC ---
DISCHARGE ORDERS DISCHARGE INFORMATION: DISCHARGE DATE: Sep 16, 2020 FINAL DIAGNOSIS Problems Medical Problems: (1) AMS (altered mental status) Status: Acute (2) Rhabdomyolysis Status: Acute CONDITION ON DISCHARGE: Stable CODE STATUS: Code Status: Full [facility]: SNF STAY <30 DAYS: Yes POST DISCHARGE ORDERS: ACTIVITY ORDERS: Resume previous activity WEIGHT BEARING STATUS: Full weight bearing DIET AFTER DISCHARGE: Regular WOUND/INCISION CARE: No wound care needed CHECKS AFTER DISCHARGE: CHECKS AFTER DISCHARGE: Check blood press - daily, Check your Temp as needed TREATMENT/EQUIPMENT ORDERS: ADAPTIVE EQUIPMENT NEEDED: None Physical Therapy For: Evalulation/Treatment Occupational Therapy For: Evaluation/Treatment DISCHARGE MEDICATIONS: Home Meds Active Scripts Ondansetron Hcl (ZOFRAN) 4 Mg Tablet, 1 TAB PO PRN Q6HRS PRN for NAUSEA for 30 Days, TAB Prov:JUSTINA THOMAS MD 04/17/19 Fluoxetine Hcl (FLUOXETINE HCL) 20 Mg Capsule, 20 MG PO DAILY for BPD for 30 Days, #30 CAP 5 Refills Prov:JUSTINA THOMAS MD 04/17/19 Acetaminophen (TYLENOL) 325 Mg Tablet, 650 MG PO PRN Q6HRS PRN for MILD PAIN / TEMP for 30 Days, #120 TAB 5 Refills Prov:JUSTINA THOMAS MD 04/17/19 Aspirin (ASPIRIN) 325 Mg Tablet, 325 MG PO DAILYWBKFT for CVA for 30 Days, #30 TAB 5 Refills Prov:JUSTINA THOMAS MD 04/17/19 Atorvastatin Calcium (ATORVASTATIN CALCIUM) 10 Mg Tablet, 10 MG PO QHS for HLD for 30 Days, #30 TAB 5 Refills Prov:JUSTINA THOMAS MD 04/17/19 Discontinued Scripts Temazepam (RESTORIL) 7.5 Mg Capsule, 7.5 MG PO PRN QHS PRN for INSOMNIA for 6 Days, #6 CAP Prov:JUSTINA THOMAS MD 04/17/19 KRYSTINA COKER MD Sep 16, 2020 12:26
--- NOTE | 2020-09-16 12:29 | PDOC3 ---
Discharge Summary Visit Information Date of Admission: Sep 13, 2020 Date of Discharge: Sep 16, 2020 Admitting Diagnosis Comment: Acute encephalopathy NOS Syncope Reactive leukocytosis Elevated creatinine due to rhabdomyolysis Elevated troponins likely due to demand ischemia Hyponatremia Prerenal azotemia Positive for cannabinoid use History of alcohol use Pulmonology also seen on chest x-ray, recommend outpatient CT scan evaluation upon discharge Final Diagnosis Problems Medical Problems: (1) AMS (altered mental status) Status: Acute (2) Rhabdomyolysis Status: Acute Acute encephalopathy NOS Syncope Reactive leukocytosis Elevated creatinine due to rhabdomyolysis Elevated troponins likely due to demand ischemia Hyponatremia Prerenal azotemia Positive for cannabinoid use History of alcohol use Pulmonology also seen on chest x-ray, recommend outpatient CT scan evaluation upon discharge Brief Hospital Course Allergies Allergies Coded Allergies Type Severity Reaction Last Updated Verified No Known Drug Allergies 04/10/19 No Vital Signs Vital Signs Date Time Temp Pulse Resp B/P (MAP) Pulse Ox O2 Delivery O2 Flow Rate FiO2 09/15/20 23:00 98.2 61 18 112/58 (76) 99 Room Air 98.2 Lab Results Laboratory Tests Test 09/14/20 14:43 09/14/20 18:30 09/14/20 20:10 09/14/20 22:25 Creatine Kinase 2088 U/L (39-308) 1697 U/L (39-308) 1411 U/L (39-308) Coronavirus (PCR) Not detected (Not Detected) Test 09/15/20 07:10 Creatine Kinase 997 U/L (39-308) Brief Hospital Course HPI: History obtained from ED physician and chart review. Patient is a 70-year-old male with history of CVA in 2019 and dementia and alcohol use was brought to the ED by EMS after son called 911 and found patient on the floor and soiled in his clothing. Patient can only state that he was walking towards the bathroom and the next thing he remembered he was at the hospital. He knows that he drinks about a beer a day. Currently denies any fevers or chest pain or abdominal pain. 09/14: No acute events reported overnight, case discussed with nursing staff patient in no acute distress no complaints during my visit, patient certainly having some visual hallucinations during my encounter. Seems to drink more than 1 beer a day given his degree of cognitive impairment. We will continue to f ollow his neurological status throughout 09/15: Much better compared to admission he is oriented in person time place and situation now 09/16: Patient resting comfortably in bed no acute events reported overnight. We are waiting for case management to update us regarding disposition. Patient is medically stable and ready for discharge Patient had a good outcome and hopefully he will no acute events reported overnight, case discussed with nursing staff patient in no acute distress no complaints during my visit at the [facility] facility with physical therapy significant transition home. Assessment Assessment Gen.: well-developed well-nourished in no apparent distress Head: Normal shape atraumatic Eyes: Pupils equal reactive to light and accommodation, normal conjunctivae and lids Ears: Normal shape Nose: Normal shape no trauma Mouth: No exudates of the back of throat no thrush no lesions Neck: Supple no JVD no carotid bruit or lymphadenopathy no thyromegaly Chest: Lungs clear to auscultation with good inspiratory effort no crackles rales or rhonchi Cardiovascular: S1-S2 regular rhythm no murmurs gallops or rubs Abdomen: Bowel sounds present soft nontender no hepatosplenomegaly appreciated sign Extremities: No clubbing no cyanosis no edema peripheral pulses palpated bilaterally Neurological: Alert awake oriented in person, cranial nerves II through XII intact, no motor or sensory deficits appreciated Psych: cooperative Discharge Information Condition at Discharge: Improved Follow Up: Weeks Disposition/Orders: D/C to Another Facility Scheduled Aspirin (Aspirin) 325 Mg Tablet, 325 MG PO DAILYWBKFT for CVA for 30 Days, #30 Ref 5 Prescribed by: JUSTINA THOMAS MD on 04/17/19899 Atorvastatin Calcium (Atorvastatin Calcium) 10 Mg Tablet, 10 MG PO QHS for HLD for 30 Days, #30 Ref 5 Prescribed by: JUSTINA THOMAS MD on 04/17/19899 Fluoxetine Hcl (Fluoxetine Hcl) 20 Mg Capsule, 20 MG PO DAILY for BPD for 30 Days, #30 Ref 5 Prescribed by: JUSTINA THOMAS MD on 04/17/19899 Scheduled PRN Acetaminophen (Tylenol) 325 Mg Tablet, 650 MG PO PRN Q6HRS PRN for MILD PAIN / TEMP for 30 Days, #120 Ref 5 Prescribed by: JUSTINA THOMAS MD on 04/17/19899 Ondansetron Hcl (Zofran) 4 Mg Tablet, 1 TAB PO PRN Q6HRS PRN for NAUSEA for 30 Days Prescribed by: JUSTINA THOMAS MD on 04/17/19899 Discontinued Medications Temazepam (Restoril) 7.5 Mg Capsule, 7.5 MG PO PRN QHS PRN for INSOMNIA for 6 Days, #6 Prescribed by: JUSTINA THOMAS MD on 04/17/19899 Justicifation of Admission Dx: Justifications for Admission: Justification of Admission Dx: Yes Altered Mental Status: Altered Mental Status KRYSTINA COKER MD Sep 16, 2020 12:29
--- NOTE | 2020-09-16 12:48 | NUR ---
Discharge instructions and belongings reviewed with patient, verbalized understanding. Report called to [facility] @[phone] and given to Stephanie smith.
== END 2020-09-16 15:21 | DRG 557 ==
LOC: ER 16:41 → 5 NORTH 19:56
PROVIDERS: ADMIT Internal Medicine; ATTEND Internal Medicine
PROC: 0HQNXZZ Repair Left Foot Skin, External Approach (ICD-10-PCS; principal; 2020-09-13)
DX: M62.82 Rhabdomyolysis (principal); G93.41 Metabolic encephalopathy; E87.1 Hypo-osmolality and hyponatremia; I24.8 Other forms of acute ischemic heart disease; F12.90 Cannabis use, unspecified, uncomplicated; D72.828 Other elevated white blood cell count; F17.200 Nicotine dependence, unspecified, uncomplicated; F03.90 Unspecified dementia, unspecified severity, without behavioral disturbance, psychotic disturbance, mood disturbance, and anxiety; G93.89 Other specified disorders of brain; I73.9 Peripheral vascular disease, unspecified; Z20.822 Contact with and (suspected) exposure to COVID-19; S91.312A Laceration without foreign body, left foot, initial encounter; Y93.89 Activity, other specified; Y92.89 Other specified places as the place of occurrence of the external cause; Y99.8 Other external cause status; Z86.73 Personal history of transient ischemic attack (TIA), and cerebral infarction without residual deficits
CPT/HCPCS: 36415; 70450; 71045; 72125; 72170; 73030; 80048; 80053; 80307; 81001; 82550; 82607; 83735; 83880; 84100; 84443; 84484; 85007; 85025; 87040; 90471; 90715; 93005; 93306; 96361; 96374; 99285; G0480; J0696; J1650; J3490; J7030; U0003; 97110-GP; 97116-GP; 97530-GO; 97530-GP; G0378